=== PATIENT | female | born 1965 | race Caucasian/White ===

== ENCOUNTER → 2016-04-29 | Outpatient (CLI) | payer BC ==
--- NOTE | 2016-04-29 09:12 | MM ---
Reason for exam: follow-up at short interval from prior study. Last mammogram was performed 10 months ago. History: Patient is postmenopausal. Took hormonal contraceptives for 6 months. Physical Findings: Nurse did not find any significant physical abnormalities on exam. MG Diagnostic Mammo w CAD KAI Bilateral CC and MLO view(s) were taken. Prior study comparison: July 11, 2015, bilateral MG screening mammo w CAD. July 06, 2014, bilateral MG screening mammo w CAD. The breast tissue is heterogeneously dense. This may lower the sensitivity of mammography. Finding: There are intermediate concern, suspicious grouped/clustered calcifications in the middle position of the right breast, 6-7cm from the nipple. Asymmetric breast tissue in the right breast at 6 o'clock, 5-6cm from the nipple. These results were verbally communicated with the patient and result sheet given to the patient on 04/29/16. ASSESSMENT: Incomplete: need additional imaging evaluation, BI-RAD 0 RECOMMENDATION: Ultrasound of the right breast.
--- NOTE | 2016-04-29 09:14 | USB ---
Reason for exam: follow-up at short interval from prior study. History: Patient is postmenopausal. Took hormonal contraceptives for 6 months. US Breast Limited BILAT Left breast ultrasound including all four quadrants, the retroareolar region and axilla demonstrates a 0.6 x 0.5 x 0.3cm oval, mixed, hypoechoic lesion at 11 o'clock. Right breast ultrasound demonstrates no cystic or solid lesion seen. These results were verbally communicated with the patient and result sheet given to the patient on 04/29/16. ASSESSMENT: Probably benign, BI-RAD 3 RECOMMENDATION: Follow-up diagnostic mammogram of the left breast in 6 months. Ultrasound of the right breast in 6 months.
== END | disposition home or self-care (01) ==
LOC: RADMAMWWP 06:57
PROVIDERS: ATTEND Internal Medicine
DX: R92.2 Inconclusive mammogram (principal); R92.8 Other abnormal and inconclusive findings on diagnostic imaging of breast
CPT/HCPCS: 76642; G0204

== ENCOUNTER → 2016-06-18 | Outpatient (CLI) | payer BC ==
[2016-06-18 10:47] LABS: CH 29.6; CHCM 32.7; HCT 48.3 % (34.0-46.0); HDW 2.52; HGB 15.5 gm/dL (11.4-16.0); MCH 29.1 pg (25.0-35.0); MCHC 32.1 g/dL (31.0-37.0); MCV 90.8 fL (80.0-100.0); Mean Platelet Volume 7.1; RBC 5.32 m/uL (3.80-5.40); RDW 12.5 % (11.5-15.5); WBC 6.2 k/uL (3.8-10.6)
[2016-06-18 11:44] LABS: ALT 49 U/L (9-52); AST 31 U/L (14-36); Alkaline Phosphatase 69 U/L (38-126); Anion Gap 12 mmol/L; Blood Urea Nitrogen 21 mg/dL (7-17); Calcium 10.4 mg/dL (8.4-10.2); Carbon Dioxide 28 mmol/L (22-30); Chloride 103 mmol/L (98-107); Cholesterol 257 mg/dL (<200); Glucose 96 mg/dL (74-99); HDL Cholesterol 68 mg/dL (40-60); Non-African American GFR(MDRD) >60 (>60 ml/min/1.73 sqM); Potassium 4.7 mmol/L (3.5-5.1); Sodium 143 mmol/L (137-145); Total Bilirubin 0.7 mg/dL (0.2-1.3); Total Protein 7.8 g/dL (6.3-8.2); Triglycerides 83 mg/dL (<150)
[2016-06-18 12:32] LABS: Vitamin B12 975 pg/mL (239-931)
== END | disposition home or self-care (01) ==
LOC: LABWHC1 09:50
PROVIDERS: ATTEND Psychiatry & Neurology Pain Medicine
DX: R41.3 Other amnesia (principal)
CPT/HCPCS: 36415; 80053; 80061; 82607; 84439; 84443; 84481; 85027

== ENCOUNTER → 2016-06-30 | Outpatient (CLI) | payer BC ==
--- NOTE | 2016-06-30 11:10 | US ---
EXAMINATION TYPE: US carotid duplex BILAT DATE OF EXAM: 06/30/2016 9:50 AM COMPARISON: NONE CLINICAL HISTORY: R42 dizziness R41.3 memory loss. EXAM MEASUREMENTS: RIGHT: Peak Systolic Velocity (PSV) cm/sec ----- Right CCA: 86.6 ----- Right ICA: 107.0 ----- Right ECA: 123.8 ICA/CCA ratio: 1.2 RIGHT: End Diastole cm/sec ----- Right CCA: 22.7 ----- Right ICA: 25.4 ----- Right ECA: 20.4 LEFT: Peak Systolic Velocity (PSV) cm/sec ----- Left CCA: 95.4 ----- Left ICA: 92.7 ----- Left ECA: 104.4 ICA/CCA ratio: 1.0 LEFT: End Diastole cm/sec ----- Left CCA: 27.1 ----- Left ICA: 34.9 ----- Left ECA: 16.3 VERTEBRALS (direction of flow): Right Vertebral: Antegrade Left Vertebral: Antegrade TECHNOLOGIST IMPRESSION: No significant stenosis seen Grayscale, color Doppler, spectral Doppler imaging performed of the carotid arteries. IMPRESSION: No hemodynamically significant stenosis of the proximal internal carotid arteries bilate rally by Doppler criteria, and indirect measurement of carotid stenosis
--- NOTE | 2016-06-30 11:18 | MR ---
EXAMINATION TYPE: MR brain wo/w con DATE OF EXAM: 06/30/2016 10:54 AM COMPARISON: NONE HISTORY: Memory loss per order. TECHNIQUE: Multiplanar, multisequence images of the brain and brainstem is performed without and with IV contras t, utilizing 17 mL intravenous MultiHance . FINDINGS: Diffusion weighted images demonstrate no evidence of a recent infarct or other diffusion ab normality. There is no extra-axial fluid collection or significant white matter signal abnormality. The ventricular system and cisternal spaces are normal in size and appearance. The brain volume is age appropriate. Midline structures demonstrate normal morphology. In the anterior aspect of the inferior medulla near cervical spinal cord origin there is round area of heterogeneous increased T2 signal with low T1 sig nal measuring approximately 5 mm with prominent homogeneous enhancement noted on axial image 3, sagit kimber image 10, and postcontrast coronal image 23 and sagittal image 73. No restricted diffusion is not ed at this level. Post contrast images demonstrate no abnormal enhancement. The dural venous sinuses appear patent. The visualized sinuses are predominantly clear and the globes are intact. There is mi ld mucosal thickening involving ethmoid sinuses bilaterally. Increased fluid signal bilateral mastoid air cells is present. IMPRESSION: 1. There is abnormal 5 mm round homogeneous enhancing intradural intramedullary lesion anterior aspec t at cervical medullary junction. Differential includes neoplasm, vascular lesion such as cavernous m alformation and inflammatory change. Former is favored. Neurosurgical follow-up advised to assess for possible further imaging workup. 2. Possible bilateral mastoiditis, clinical correlation advised. A Yellow message has been communicated to Brianna Cardona MD via the [employer] system on 06/30/2016 11:15 AM, Message ID [id number].
== END | disposition home or self-care (01) ==
LOC: RADUSMAIN 09:17
PROVIDERS: ATTEND Psychiatry & Neurology Neurology
DX: G93.9 Disorder of brain, unspecified (principal); R42 Dizziness and giddiness
CPT/HCPCS: 93880; 70553; A9577

== ENCOUNTER → 2016-08-06 | Outpatient (CLI) | payer BC ==
--- NOTE | 2016-08-06 21:29 | MR ---
EXAMINATION TYPE: MR cspine/lspine wo/w con DATE OF EXAM: 08/06/2016 7:11 PM COMPARISON: Cervical spine x-ray June 28, 2013. MRI brain June 30, 2016. HISTORY: Cervicalgia and low back pain per order. Headaches with neck pain for over 2 years per patie nt. Low back pain for 2 months per patient. TECHNIQUE: Multiplanar, multisequence images of the cervical and lumbar spine are performed without and with IV contrast, utilizing 17 mL intravenous MultiHance FINDINGS: C-SPINE: FINDINGS: Sagittal images of the cervical spine redemonstrate heterogeneous T2 hyperintense 6 mm roun d homogeneous enhancing intradural intramedullary lesion anterior aspect at the cervical medullary ju nction felt stable. The cervical and upper thoracic spinal cord is otherwise normal in course, calib er, and signal. Vertebral alignment remains straightened. The vertebral body heights are normal. Th ere is moderate disc space narrowing with mild to moderate spurring C5-C6 level present. There is sma ll posterior disc herniation at this level on sagittal images. The bone marrow signal intensity is ov erall slightly heterogeneous. No suspicious postcontrast enhancement is noted. Axial images at the C2-C3 level shows left paracentral disc protrusion minimally effacing anterolater al thecal sac on axial image 43, bilateral neural foramina are patent. Axial images at C3-C4 and C4-C5 levels are felt within normal limits. Axial images at C5-C6 level show broad-based posterior disc protrusion effacing anterior thecal sac a nd causing mild right greater than left bilateral neural foraminal narrowing with some posterior and marginal spurring present. Axial images at C6-C7 and C7-T1 levels are felt within normal limits. IMPRESSION: 1. Stable lesion anterior cervical medullary junction. Differential remains neoplasm, vascular lesion such as cavernous malformation, and inflammatory change. No additional lesions are evident. 2. Straightening of cervical spine with degenerative change C5-C6 level noted as detailed above. L-SPINE: Sagittal images of the lumbar spine show vertebral body heights and alignment to appear satisfactory. There is multilevel disc desiccation identified. There is mild to moderate disc space narrowing L1-L 2 and L2-L3 levels. Increased signal posteriorly consistent with annular tear is seen at L4-L5 and L5 -S1 levels. Small posterior disc herniations are seen at these levels on sagittal images. The conus m edullaris is normal in position and signal ending at superior L1 vertebral body level. There is mild to moderate multilevel anterior spurring. There is some heterogeneous endplate changes involving ante rior inferior L1 and the anterior superior and inferior L3 endplates. There is prominent endplate charla nge involving left inferior L5 endplate, all these levels show increased T1 and T2 signal consistent with Modic type II degenerative change. No suspicious postcontrast enhancement is seen. Axial images show the T12-L1 level to appear within normal limits. Axial images at the L1-L2 level show mild to moderate broad disc bulge mildly effacing anterior theca l sac with mild facet degenerative changes bilaterally. Bilateral neural foramina are patent. Axial images at the L2-L3 level show moderate broad disc bulge effacing anterior thecal sac with mild /moderate facet degenerative changes and ligamentum flavum hypertrophy mildly effacing the posterior lateral thecal sac. There is mild left greater than right bilateral anterior inferior neural foramina l narrowing at this level identified. Axial images at L3-L4 level show mild to moderate broad disc bulge effacing anterior thecal sac with mild to moderate facet degenerative changes bilaterally. There is mild bilateral anterior inferior ne ural foraminal narrowing at this level identified. Axial images at L4-L5 level show moderate to advanced facet degenerative changes bilaterally. There i s broad-based posterior disc protrusion effacing the anterior thecal sac. There is moderate bilateral anterior inferior neural foraminal narrowing at this level identified. Axial images at L5-S1 level show moderate facet degenerative changes bilaterally. There is small cent ral disc protrusion minimally effacing anterior thecal sac on axial image 3. Bilateral neural foramin a remain patent. IMPRESSION: Multilevel degenerative changes in lumbar spine as detailed above with findings most pron ounced at L4-L5 level noted.
== END | disposition home or self-care (01) ==
LOC: RADMRIMAIN 18:00
PROVIDERS: ATTEND Nurse Practitioner Acute Care
DX: M47.812 Spondylosis without myelopathy or radiculopathy, cervical region (principal); M47.816 Spondylosis without myelopathy or radiculopathy, lumbar region
CPT/HCPCS: 72156; 72158; A9577

== ENCOUNTER → 2016-08-07 | Outpatient (CLI) | payer BC ==
--- NOTE | 2016-08-07 23:23 | MR ---
EXAMINATION TYPE: MR thoracic spine wo/w con DATE OF EXAM: 08/07/2016 6:53 PM COMPARISON: MRI brain June 30, 2016. MRI cervical spine and lumbar spine from yesterday. HISTORY: Pain in Mid Back per order. Abdominal brain MRI. TECHNIQUE: Multiplanar, multisequence imaging of thoracic spine is performed without and with IV cont rast, patient is injected with 20 cc of gadolinium for the study. FINDINGS: Spinal cord shows normal course, caliber, and signal as it courses the thoracic spine. Louise tebral body heights and alignment are satisfactory. There is small posterior disc herniation at T7-T8 and to lesser degree at T8-T9 level on sagittal image 7 mildly effacing anterior thecal sac. Some he terogeneity of bone marrow signal intensity is seen with small hemangioma in the inferior T1 endplate noted. No significant spurring is present. No abnormal postcontrast enhancement is seen. Review of the axial images confirms bilateral paracentral disc protrusions effacing anterolateral the montserrat sac, bilateral neural foramina are patent on axial image 17 at T7-T8 level. Axial images at T8-T9 level show slightly more prominent bilateral paracentral disc protrusions effac ing the anterior lateral thecal sac on axial image 15. There is facet arthropathy and ligamentum flav um hypertrophy effacing posterior lateral thecal sac at these levels. Bilateral neural foramina remai n patent. Axial images at T9-T10 level show some facet arthropathy and ligament flavum hypertrophy effacing pos terior lateral thecal sac and axial image 12. Bilateral neural foramina are patent. Remainder thoracic levels are felt within normal limits. IMPRESSION: Some multilevel degenerative changes in the mid to lower thoracic spine as detailed above . No additional enhancing spinal cord lesions are evident.
== END | disposition home or self-care (01) ==
LOC: RADMRIMAIN 18:00
PROVIDERS: ATTEND Nurse Practitioner Acute Care
DX: M47.814 Spondylosis without myelopathy or radiculopathy, thoracic region (principal)
CPT/HCPCS: 72157; A9577

== ENCOUNTER → 2016-09-10 | Outpatient (CLI) | payer BC ==
--- NOTE | 2016-09-10 21:47 | MR ---
EXAMINATION TYPE: MR brain wo/w con DATE OF EXAM: 09/10/2016 8:09 PM COMPARISON: 06/30/2016 HISTORY: Follow Up from previous Positive MRI CONTRAST: Performed utilizing 20 mL intravenous MultiHance gadolinium contrast. TECHNIQUE: Multiplanar, multiecho imaging on a 3.0 Helen magnet is performed through the brain. Stud y is performed within 24 hours of arrival to the hospital. The craniovertebral junction is normal. The pituitary is normal. Diffusion-weighted imaging is performed. No abnormal hyperintensity is present to suggest an acute i ntracranial infarct or acute ischemic change. There is an abnormal area of enhancement within the anterior brainstem near the level of the foramen magnum this measures 0.9 cm AP by 0.7 cm transverse by 0.9 cm in craniocaudal dimension which appears identical to the previous measurements. Cord bulging or mass effect is not identified. No additional abnormal areas of enhancement are evident. Ventricles and sulci are appropriate for the patient age. IMPRESSIONS: 1. Stable focal enhancement within the anterior proximal brainstem
== END | disposition home or self-care (01) ==
LOC: RADMRIMAIN 19:32
PROVIDERS: ATTEND Nurse Practitioner Acute Care
DX: G93.9 Disorder of brain, unspecified (principal)
CPT/HCPCS: 70553; A9577

== ENCOUNTER 2016-09-12 15:06 | Emergency (ER) | payer BC ==
[2016-09-12] MEDS ORDERED: SODIUM CHLORIDE 0.9% 1,000 ML IV STA (15:52)
[2016-09-12] MEDS ORDERED: KETOROLAC 30 MG/ML 1 ML VIAL IVP STA (15:52)
--- NOTE | 2016-09-12 15:56 | ED ---
Chest Pain HPI - General Chief Complaint: Chest Pain Stated Complaint: Chest Pain Time Seen by Provider: 09/12/16 15:30 Source: patient, RN notes reviewed Mode of arrival: wheelchair Limitations: no limitations - History of Present Illness Initial Comments: This is a 51-year-old female with a benign past history except for some type of mass on her med do that is being followed who states she had the onset about 1 PM today of sharp left-sided chest pain that radiated across her chest into her right shoulder. She states initially was 10/10 severity currently 8/10 he gets worse with deep breathing she denies any fevers chills nausea vomiting sweats cough or phlegm production. She is a nonsmoker. She states she was cleaning her garage but does not recall doing anything that may have strained her chest. She denies any other complaints at this time no other significant history is family history mother had lung cancer. MD Complaint: chest pain - Related Data Home Medications Medication Instructions Recorded Confirmed Dexamethasone 1 mg PO TID 09/12/16 09/12/16 Previous Rx's Medication Instructions Recorded Ibuprofen 800 mg PO Q6HR PRN #20 tablet 09/12/16 Allergies Allergy/AdvReac Type Severity Reaction Status Date / Time No Known Allergies Allergy Verified 09/12/16 17:12 Review of Systems ROS Statement: Those systems with pertinent positive or pertinent negative responses have been documented in the HPI. ROS Other: All systems not noted in ROS Statement are negative. 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 History of Any Multi-Drug Resistant Organisms: None Reported Past Surgical History: Appendectomy, Section, Cholecystectomy, Hysterectomy Past Psychological History: No Psychological Hx Reported Smoking Status: Never smoker Past Alcohol Use History: None Reported Past Drug Use History: None Reported General Exam - General Exam Comments Initial Comments: This is a well-developed well-nourished awake alert oriented 3 female Limitations: no limitations General appearance: alert, in no apparent distress Head exam: Present: atraumatic, normocephalic, normal inspection Eye exam: Present: normal appearance, PERRL, EOMI. Absent: scleral icterus, conjunctival injection, periorbital swelling ENT exam: Present: normal exam, mucous membranes moist Neck exam: Present: normal inspection. Absent: tenderness, meningismus, lymphadenopathy Respiratory exam: Present: normal lung sounds bilaterally, chest wall tenderness (Tenderness palpation along the costal sternal angle bilaterally. No step-off or crepitation). Absent: respiratory distress, wheezes, rales, rhonchi, stridor Cardiovascular Exam: Present: regular rate, normal rhythm, normal heart sounds. Absent: systolic murmur, diastolic murmur, rubs, gallop, clicks GI/Abdominal exam: Present: soft, normal bowel sounds. Absent: distended, tenderness, guarding, rebound, rigid Extremities exam: Present: normal inspection, full ROM, normal capillary refill. Absent: tenderness, pedal edema, joint swelling, calf tenderness Back exam: Present: normal inspection Neurological exam: Present: alert, oriented X3, CN II-XII intact Psychiatric exam: Present: normal affect, normal mood Skin exam: Present: warm, dry, intact, normal color. Absent: rash Course Vital Signs 09/12/16 09/12/16 15:26 16:56 Temperature 99.8 F H Pulse Rate 64 58 L Respiratory 17 18 Rate Blood Pressure 141/74 119/60 O2 Sat by Pulse 99 98 Oximetry Chest Pain MDM - MDM Review the x-ray shows no acute findings. Did discuss findings with the patient and her . Patient is feeling improved the presentation is consistent with costochondritis patient does not drink alcohol she had her gallbladder removed several years ago. She does not recall being sick and has no abdominal pain. I did inform her of the mildly elevated lipase level. She' ll be placed on anti-inflammatories follow-up with her doctor and return when necessary Disposition Clinical Impression: Chest wall syndrome, Costalchondritis, Dehydration Disposition: HOME SELF-CARE Condition: Good Instructions: Costochondritis (ED), Dehydration (ED) Prescriptions: Ibuprofen 800 mg PO Q6HR PRN #20 tablet PRN Reason: Pain Referrals: Sue Abreu MD [Primary Care Provider] - 1-2 days
[2016-09-12 16:14] LABS: Basophils # (A) 0.1 k/uL (0-0.2); Basophils % (A) 1 %; CH 30.1; CHCM 33.1; Eosinophils # (A) 0.2 k/uL (0-0.7); Eosinophils % (A) 3 %; HCT 40.5 % (34.0-46.0); HDW 2.43; HGB 13.3 gm/dL (11.4-16.0); Luc # (Auto) 0.11; Luc % (Auto) 2; Lymphocytes # (A) 2.4 k/uL (1.0-4.8); Lymphocytes % (A) 41 %; MCHC 32.8 g/dL (31.0-37.0); MCV 91.4 fL (80.0-100.0); Mean Platelet Volume 7.3; Monocytes # (A) 0.3 k/uL (0-1.0); Monocytes % (A) 5 %; Neutrophils # (A) 2.8 k/uL (1.3-7.7); Neutrophils % (A) 48 %; RBC 4.43 m/uL (3.80-5.40); RDW 13.1 % (11.5-15.5); WBC 5.8 k/uL (3.8-10.6); WBC (Perox) 6.23
[2016-09-12 16:24] LABS: ALT 34 U/L (9-52); AST 35 U/L (14-36); Alkaline Phosphatase 76 U/L (38-126); Amylase 82 U/L (30-110); Anion Gap 9 mmol/L; Blood Urea Nitrogen 24 mg/dL (7-17); Calcium 9.3 mg/dL (8.4-10.2); Carbon Dioxide 25 mmol/L (22-30); Chloride 108 mmol/L (98-107); Glucose 122 mg/dL (74-99); Magnesium 1.8 mg/dL (1.6-2.3); Non-African American GFR(MDRD) >60 (>60 ml/min/1.73 sqM); Potassium 4.3 mmol/L (3.5-5.1); Sodium 142 mmol/L (137-145); Total Bilirubin 0.3 mg/dL (0.2-1.3); Total Protein 6.4 g/dL (6.3-8.2)
[2016-09-12 16:32] LABS: Creatine Kinase 269 U/L (30-135)
[2016-09-12 16:37] LABS: Prothrombin Time 10.3 sec (9.0-12.0)
[2016-09-12 16:45] LABS: Creatine Kinase MB 1.7 ng/mL (0.0-2.4); Troponin I <0.012 ng/mL (0.000-0.034)
--- NOTE | 2016-09-12 16:54 | XR ---
EXAMINATION TYPE: XR chest 2V DATE OF EXAM: 09/12/2016 COMPARISON: NONE HISTORY: Chest pain TECHNIQUE: Frontal and lateral views of the chest are obtained. FINDINGS: There is no focal air space opacity, pleural effusion, or pneumothorax seen. The cardiac silhouette size is within normal limits. The osseous structures are intact. IMPRESSION: No acute cardiopulmonary process.
[2016-09-12 16:57] VITALS: RESP 18
[2016-09-12 18:41] VITALS: BP 124/63; PULSE 56; TEMP 98.9
== END 2016-09-12 18:41 | disposition home or self-care (01) ==
LOC: EC 15:06
DX: M94.0 Chondrocostal junction syndrome [Tietze] (principal); E86.0 Dehydration; R74.8 Abnormal levels of other serum enzymes; Z79.899 Other long term (current) drug therapy
CPT/HCPCS: 36415; 93005; 85379; 83880; 80053; 82150; 82550; 82553; 83690; 83735; 84484; 85025; 85610; 85730; 71020; 99285; 96374; 96361 ×2; J1885

== ENCOUNTER → 2016-09-25 | Outpatient (CLI) | payer BC ==
--- NOTE | 2016-09-25 19:57 | CT ---
EXAMINATION TYPE: CT angio head neck DATE OF EXAM: 09/25/2016 7:43 PM COMPARISON: NONE HISTORY: brainstem tumor CT DLP: 316.6 mGycm Automated exposure control for dose reduction was used. TECHNIQUE: Performed with IV Contrast, patient injected with 65 mL of Omnipaque 350. . FINDINGS: There is normal appearance of the aortic arch. There is normal branching pattern of the great vessels on the aortic arch. There is arterial flow in the common internal and external carotid arteries in t he neck. There is no evidence for stenosis. There is no evidence of dissection. There is bilateral arterial flow in the vertebral arteries. There is patency of the vertebrobasilar artery system. I see no pathologic vascularity or enhancement involving the brainstem and upper cervical spinal cord. There is arterial flow in the anterior middle and posterior cerebral arteries. There is no mass effec t. There is no evidence of stenosis. There is no sign of neovascularity. There is normal contrast opacification of the intracranial venous sinuses. IMPRESSION: NORMAL CT ANGIOGRAM OF THE NECK. NORMAL CT ANGIOGRAM OF THE BRAIN. THERE IS NO EVIDENCE OF A VASCULAR MALFORMATION OF THE BRAIN STEM A ND UPPER CERVICAL SPINAL CORD.
== END | disposition home or self-care (01) ==
LOC: RADCTMAIN 16:49
PROVIDERS: ATTEND Neurological Surgery
DX: Q28.3 Other malformations of cerebral vessels (principal)
CPT/HCPCS: 70496; 70498; Q9967

== ENCOUNTER → 2016-09-29 | Outpatient (CLI) | payer BC ==
--- NOTE | 2016-09-29 12:51 | CT ---
EXAMINATION TYPE: CT abdomen pelvis w con DATE OF EXAM: 09/29/2016 COMPARISON: NONE HISTORY: Brain stem tumor with LUQ and RLQ pain CT DLP: 1118.7 mGycm Automated exposure control for dose reduction was used. TECHNIQUE: Helical acquisition of images was performed from the lung bases through the pelvis. CONTRAST: Performed with Oral Contrast and with IV Contrast, patient injected with 100 mL of Omnipaque 300. FINDINGS: LUNG BASES: No significant abnormality is appreciated. LIVER/GB: No significant abnormality is appreciated. PANCREAS: No significant abnormality is seen. SPLEEN: No significant abnormality is seen. ADRENALS: No significant abnormality is seen. KIDNEYS: No significant abnormality is seen. FREE AIR: No free air is visualized. RETROPERITONEAL ADENOPATHY: None visualized REPRODUCTIVE ORGANS: No significant abnormality is seen URINARY BLADDER: No significant abnormality is seen. PELVIC ADENOPATHY: None visualized. OSSEOUS STRUCTURES: No significant abnormality is seen. BOWEL: No significant abnormality is seen. IMPRESSION: NEGATIVE EXAMINATION, CT ABDOMEN AND PELVIS WITH CONTRAST.
== END | disposition home or self-care (01) ==
LOC: RADCTMAIN 08:36
PROVIDERS: ATTEND Internal Medicine
DX: R10.9 Unspecified abdominal pain (principal); D33.2 Benign neoplasm of brain, unspecified
CPT/HCPCS: 74177; Q9967

== ENCOUNTER → 2016-10-02 | Outpatient (CLI) | payer BC ==
--- NOTE | 2016-10-02 14:07 | CT ---
EXAMINATION TYPE: CT chest w con DATE OF EXAM: 10/02/2016 COMPARISON: Previous ultrasound breast and mammogram 04/29/2016 HISTORY: Lt breast pain, known brain stem tumor CT DLP: 424.7 mGycm Automated exposure control for dose reduction was used. CONTRAST: CT scan of the chest is performed with IV Contrast, patient injected with 100 mL of Omnipaque 300. FINDINGS: LUNGS: The lungs are grossly clear, there is no concerning parenchymal mass or nodule identified. T here is no pleural effusion or pneumothorax seen. The tracheobronchial tree is patent. Pleural-based thickening posteriorly on the left likely postinflammatory with tiny 1 mm subpleural nodularity like ly postinflammatory. MEDIASTINUM: There are no greater than 1 cm hilar or mediastinal lymph nodes. No pericardial effusi on is seen. Mild cardiomegaly. OTHER: No previous cholecystectomy changes noted. Significant abnormality is seen. Shotty adenopathy in the axilla. There is a 1 cm right breast nodule. Shotty adenopathy in the cardiophrenic angle on the right. IMPRESSION: 1. There is a 1 cm right breast nodule correlate with mammogram. Not identified by previous mammogram . 2. Subpleural nodularity left lower lobe measuring less than 5 mm likely postinflammatory.
== END | disposition home or self-care (01) ==
LOC: RADCTMAIN 13:31
PROVIDERS: ATTEND Internal Medicine
DX: N63 Unspecified lump in breast (principal); R91.8 Other nonspecific abnormal finding of lung field; D49.6 Neoplasm of unspecified behavior of brain
CPT/HCPCS: 71260; Q9967

== ENCOUNTER → 2016-10-14 | Outpatient (CLI) | payer BC ==
--- NOTE | 2016-10-14 09:54 | MM ---
Reason for exam: clinical finding. Last mammogram was performed 6 months ago. History: Patient is postmenopausal. Took hormonal contraceptives for 6 months. Physical Findings: Nurse did not find any significant physical abnormalities on exam. MG Diagnostic Mammo w CAD KAI Bilateral CC and MLO view(s) were taken. Prior study comparison: April 29, 2016, bilateral MG diagnostic mammo w CAD KAI. July 11, 2015, bilateral MG screening mammo w CAD. There are scattered fibroglandular densities. There is chronic nodularity bilaterally. No significant new findings when compared with previous films. These results were verbally communicated with the patient and result sheet given to the patient on 10/14/16. ASSESSMENT: Benign, BI-RAD 2 RECOMMENDATION: Routine screening mammogram of both breasts in 1 year.
--- NOTE | 2016-10-14 09:56 | USB ---
Reason for exam: clinical finding. History: Patient is postmenopausal. Took hormonal contraceptives for 6 months. US Breast BILAT Right breast ultrasound includes all four quadrants, the retroareolar region and axilla. Finding demonstrates a 0.3 x 0.3 x 0.2cm lesion too small to characterize at 1 o'clock, a 0.6 x 0.4 x 0.4cm cystic lesion at 4 o'clock and a 0.8 x 1.0 x 0.4cm oval, solid lesion at 6 o'clock. Left breast ultrasound includes all four quadrants, the retroareolar region and axilla. Finding demonstrates a 0.6 x 0.6 x 0.3cm oval, solid lesion at 11 o'clock. These results were verbally communicated with the patient and result sheet given to the patient on 10/14/16. ASSESSMENT: Probably benign, BI-RAD 3 RECOMMENDATION: Ultrasound of both breasts in 6 months.
== END | disposition home or self-care (01) ==
LOC: RADMAMWWP 08:17
PROVIDERS: ATTEND Internal Medicine
DX: N63 Unspecified lump in breast (principal)
CPT/HCPCS: 76641; G0204

== ENCOUNTER 2016-10-28 05:37 | Emergency (ER) | payer BC ==
[2016-10-28] MEDS ORDERED: SODIUM CHLORIDE 0.9% 1,000 ML IV STA ×2 (05:56→07:52)
[2016-10-28] MEDS ORDERED: HYDROmorphone 1 MG/ML 1 ML SYRINGE IVP STA (05:56)
[2016-10-28] MEDS ORDERED: ONDANSETRON 4 MG/2 ML VIAL IVP STA (05:56)
[2016-10-28] MEDS ORDERED: RX INFO: IV CONTRAST WAS GIVEN 1 EACH MISC MISCELLANE PRN (06:00)
--- NOTE | 2016-10-28 06:08 | ED ---
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 Cardona for and she had multiple imaging done recently did review some of for CT angiogram of the brain which was normal that there was a MRI of the brain which does confirm a brainstem tumor right around dougherty magnum. He denies any blurred vision any slurred speech or any neck stiffness or any 1 week within the other one leg weaker than the other (Gt Haley) - Related Data Home Medications Medication Instructions Recorded Confirmed Dexamethasone 1 mg PO TID 09/12/16 10/28/16 Multivitamins, Thera [Multivitamin 1 tab PO DAILY 10/28/16 10/28/16 (formulary)] Allergies Allergy/AdvReac Type Severity Reaction Status Date / Time No Known Allergies Allergy Verified 10/28/16 07:56 Review of Systems ROS Other: All systems not noted in ROS Statement are negative. <Gt Haley - Last Filed: 10/28/16 06:49> ROS Other: All systems not noted in ROS Statement are negative. <Merritt Vegas - Last Filed: 10/28/16 08:55> ROS Statement: Those systems with pertinent positive or pertinent negative responses have been documented in the HPI. 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- benign History of Any Multi-Drug Resistant Organisms: None Reported Past Surgical History: Appendectomy, Section, Cholecystectomy, Hysterectomy Additional Past Surgical History / Comment(s): c-sect x 3 Past Psychological History: No Psychological Hx Reported Smoking Status: Never smoker Past Alcohol Use History: None Reported Past Drug Use History: None Reported <Gt Haley - Last Filed: 10/28/16 06:49> General Exam Limitations: no limitations <Gt Haley - Last Filed: 10/28/16 06:49> <Merritt Vegas - Last Filed: 10/28/16 08:55> - General Exam Comments Initial Comments: General: The patient is awake and alert, in no distress, and does not appear acutely ill. GCS is 15 Skin: Skin is warm and dry and no rashes or lesions are noted. Eye: Pupils are equal, round and reactive to light, extra-ocular movements are intact; there is normal conjunctiva bilaterally. Ears, nose, mouth and throat: There are moist mucous membranes and no oral lesions. Neck: The neck is supple, there is no tenderness or JVD. No neck stiffness noticed no signs of meningitis noticed Cardiovascular: There is a regular rate and rhythm. No murmur, rub or gallop is appreciated. Respiratory: To auscultation bilateral, no wheezing no rhonchi no distress respiratory carney noticed Gastrointestinal: Soft, non-distended, non-tender abdomen without masses or organomegaly noted. There is no rebound or guarding present. Bowel sounds are unremarkable. Back: There is no tenderness to palpation in the midline. There is no obvious deformity. Musculoskeletal: Normal ROM, no tenderness, There is no pedal edema. There is no calf tenderness or swelling. No cords were appreciated. Neurological: CN II-XII intact, Cranial nerves III through XII are intact. There are no obvious motor or sensory deficits. Coordination appears grossly intact. Speech is normal. Psychiatric: Cooperative, appropriate mood & affect, normal judgment. (Gt Haley) Course <Gt Haley - Last Filed: 10/28/16 06:49> <Merritt Vegas - Last Filed: 10/28/16 08:55> Vital Signs 10/28/16 10/28/16 10/28/16 05:40 06:15 07:00 Temperature 97.8 F Pulse Rate 76 69 76 Respiratory 18 18 18 Rate Blood Pressure 145/79 154/74 117/57 O2 Sat by Pulse 100 98 97 Oximetry 10/28/16 08:00 Temperature Pulse Rate 61 Respiratory 18 Rate Blood Pressure 124/58 O2 Sat by Pulse 100 Oximetry - Reevaluation(s) Reevaluation #1: 10/28/16 06:[address] brain with IV contrast, will go ahead and give her Dilaudid 1 mg IV along with Zofran she is taking steroids 3 times a day 10/28/16 07:00 She'll be heading to the CT suite for the CAT scan patient be endorsed to morning shift Dr. Dr. Vegas to follow-up on the CAT scan (Gt Haley) Medical Decision Making - Lab Data Result diagrams: 10/28/16 06:10 10/28/16 06:10 <Gt Haley - Last Filed: 10/28/16 06:49> - Lab Data Result diagrams: 10/28/16 06:10 10/28/16 06:10 - Radiology Data Radiology results: report reviewed (I did review the imaging and reports there is no acute changes since an MRI done 09/10/16), image reviewed <Merritt Vegas - Last Filed: 10/28/16 08:55> - Medical Decision Making The patient has responded to the pain medication and fluids she will be discharged she feels much improved at this time and does desire to go home. ( Merritt Vegas) - Lab Data Lab Results 10/28/16 10/28/16 Range/Units 06:10 06:10 WBC 6.6 (3.8-10.6) k/uL RBC 4.48 (3.80-5.40) m/uL Hgb 13.9 (11.4-16.0) gm/dL Hct 39.7 (34.0-46.0) % MCV 88.8 (80.0-100.0) fL MCH 31.0 (25.0-35.0) pg MCHC 34.9 (31.0-37.0) g/dL RDW 13.1 (11.5-15.5) % Plt Count 216 (150-450) k/uL ESR 13 (0-20) mm/hr Sodium 142 (137-145) mmol/L Potassium 4.1 (3.5-5.1) mmol/L Chloride 106 (98-107) mmol/L Carbon Dioxide 27 (22-30) mmol/L Anion Gap 9 mmol/L BUN 21 H (7-17) mg/dL Creatinine 0.68 (0.52-1.04) mg/dL Est GFR (MDRD) Af Amer >60 (>60 ml/min/1.73 sqM) Est GFR (MDRD) Non-Af >60 (>60 ml/min/1.73 sqM) Glucose 103 H (74-99) mg/dL Calcium 9.7 (8.4-10.2) mg/dL Total Bilirubin 0.5 (0.2-1.3) mg/dL AST 86 H (14-36) U/L ALT 260 H (9-52) U/L Alkaline Phosphatase 89 (38-126) U/L Total Protein 6.7 (6.3-8.2) g/dL Albumin 3.8 (3.5-5.0) g/dL Disposition <Gt Haley - Last Filed: 10/28/16 06:49> <Merritt Vegas - Last Filed: 10/28/16 08:55> Clinical Impression: Headache, Brainstem tumor, Dehydration Disposition: HOME SELF-CARE Condition: Good Instructions: Acute Headache (ED), Dehydration (ED) Referrals: Sue Abreu MD [Primary Care Provider] - 1-2 days
[2016-10-28 06:27] LABS: HCT 39.7 % (34.0-46.0); HDW 2.39; HGB 13.9 gm/dL (11.4-16.0); MCHC 34.9 g/dL (31.0-37.0); MCV 88.8 fL (80.0-100.0); Mean Platelet Volume 7.3; RBC 4.48 m/uL (3.80-5.40); RDW 13.1 % (11.5-15.5); WBC 6.6 k/uL (3.8-10.6)
[2016-10-28 06:39] LABS: ALT 260 U/L (9-52); AST 86 U/L (14-36); Alkaline Phosphatase 89 U/L (38-126); Anion Gap 9 mmol/L; Blood Urea Nitrogen 21 mg/dL (7-17); Calcium 9.7 mg/dL (8.4-10.2); Carbon Dioxide 27 mmol/L (22-30); Chloride 106 mmol/L (98-107); Glucose 103 mg/dL (74-99); Non-African American GFR(MDRD) >60 (>60 ml/min/1.73 sqM); Potassium 4.1 mmol/L (3.5-5.1); Sodium 142 mmol/L (137-145); Total Bilirubin 0.5 mg/dL (0.2-1.3); Total Protein 6.7 g/dL (6.3-8.2)
[2016-10-28 07:08] LABS: Erythrocyte Sedimentation Rate 13 mm/hr (0-20)
--- NOTE | 2016-10-28 07:51 | CT ---
EXAMINATION TYPE: CT brain w con DATE OF EXAM: 10/28/2016 COMPARISON: MRI 09/10/2016 HISTORY: 51-year-old female with Migraine with a history of benign brainstem tumor CT DLP: 1055 mGycm Automated exposure control for dose reduction was used. TECHNIQUE: CT scan of the head is performed with IV Contrast, patient injected with 100 ml mL of Omn ipaque 300. Coronal/sagittal reconstructions performed. FINDINGS: The 8 x 8 x 9 mm nodular focus of enhancement within the ventral median, left paramedian cervical med ullary junction is unchanged from 09/10/2016 MRI. No associated mass effect or midline shift. No other abnormal enhancing masses. Dural venous sinuses are patent. The ventricles and sulci are within normal limits in size. The globes are intact and the visualized sinuses are clear. IMPRESSION: As compared to 09/10/2016 MRI, the enhancing 9 mm lesion within the median, left paramedian ventral ce rvicomedullary junction is stable. No other enhancing lesions or mass effect identified.
[2016-10-28] MEDS ORDERED: KETOROLAC 30 MG/ML 1 ML VIAL IVP STA (07:52)
[2016-10-28 09:05] VITALS: BP 139/73; PULSE 60; RESP 20; TEMP 98.4
[2016-10-29 21:32] LABS: Hepatitis B Surface Ag Index 0.07
[2016-10-29 21:38] LABS: Hepatitis B Core IgM Index 0.03
[2016-10-29 21:49] LABS: Hepatitis C Virus IgG Ab Negative (Negative); Hepatitis C Virus IgG Index 0.01
== END 2016-10-28 09:09 | disposition home or self-care (01) ==
LOC: EC 05:37
DX: D33.1 Benign neoplasm of brain, infratentorial (principal); E86.0 Dehydration; Z79.899 Other long term (current) drug therapy; Z90.49 Acquired absence of other specified parts of digestive tract; Z90.710 Acquired absence of both cervix and uterus
CPT/HCPCS: 36415; 80053; 85652; 85027; 70460; 99284; 96374; 96375 ×2; 96361 ×3; J2405; J1885; J1170; Q9967; 80074

== ENCOUNTER → 2016-11-18 | Outpatient (CLI) | payer BC ==
[2016-11-18 09:58] LABS: Basophils # (A) 0.1 k/uL (0-0.2); Basophils % (A) 1 %; CH 30.8; CHCM 33.7; Eosinophils # (A) 0.1 k/uL (0-0.7); Eosinophils % (A) 2 %; HCT 45.3 % (34.0-46.0); Luc # (Auto) 0.17; Luc % (Auto) 3; Lymphocytes # (A) 2.6 k/uL (1.0-4.8); Lymphocytes % (A) 38 %; MCH 30.5 pg (25.0-35.0); MCHC 33.3 g/dL (31.0-37.0); MCV 91.7 fL (80.0-100.0); Mean Platelet Volume 8.2; Monocytes # (A) 0.5 k/uL (0-1.0); Monocytes % (A) 7 %; Neutrophils # (A) 3.3 k/uL (1.3-7.7); Neutrophils % (A) 50 %; RBC 4.93 m/uL (3.80-5.40); RDW 13.6 % (11.5-15.5); WBC 6.7 k/uL (3.8-10.6); WBC (Perox) 6.43
[2016-11-18 11:44] LABS: ALT 55 U/L (9-52); AST 29 U/L (14-36); Alkaline Phosphatase 67 U/L (38-126); Anion Gap 11 mmol/L; Blood Urea Nitrogen 17 mg/dL (7-17); Calcium 10.2 mg/dL (8.4-10.2); Carbon Dioxide 28 mmol/L (22-30); Chloride 103 mmol/L (98-107); Glucose 93 mg/dL (74-99); Non-African American GFR(MDRD) >60 (>60 ml/min/1.73 sqM); Potassium 4.3 mmol/L (3.5-5.1); Sodium 142 mmol/L (137-145); Total Bilirubin 0.5 mg/dL (0.2-1.3); Total Protein 7.1 g/dL (6.3-8.2)
[2016-11-18 12:32] LABS: Vitamin B12 800 pg/mL (239-931)
== END | disposition home or self-care (01) ==
LOC: LABWHC1 09:22
PROVIDERS: ATTEND Nurse Practitioner Acute Care
DX: R53.83 Other fatigue (principal); E55.9 Vitamin D deficiency, unspecified; R20.2 Paresthesia of skin
CPT/HCPCS: 36415; 80053; 82306; 82607; 84439; 84443; 84481; 85025

== ENCOUNTER → 2016-11-24 | Outpatient (CLI) | payer BC ==
--- NOTE | 2016-11-24 21:04 | MR ---
EXAMINATION TYPE: MR brain wo/w con DATE OF EXAM: 11/24/2016 COMPARISON: MR brain dated 09/10/2016, and 06/30/2016. HISTORY: Disorder of brain, brain mass TECHNIQUE: Multiplanar, multisequence images of the brain and brainstem is performed without and with IV contras t, utilizing 18 mL intravenous MultiHance . FINDINGS: Diffusion weighted images demonstrate no evidence of a recent infarct or other diffusion ab normality. There is no extra-axial fluid collection. Stable right frontal and periventricular nonenh ancing white matter changes are seen. The ventricular system and cisternal spaces are normal in size and appearance. The brain volume is age appropriate. 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 A focal T2/FLAIR hyperintense intradural, intramedullary enhancing mass is seen at the craniocervical junction within the distal fibula at the foramen magnum measuring 0.6 x 0.6 x 0.8 cm. This mass is o f avid and heterogenous enhancement. This is similar in size to the prior exam given differences in m easurement technique as it previously measured 0.9 x 0.7 x 0.9 cm in anterior posterior by transverse by craniocaudal dimension. No new enhancing foci. The dural venous sinuses appear patent. The visualized sinuses are clear and the globes are intact. IMPRESSION: 1. Unchanged intradural, intramedullary enhancing mass. This is favored to represent a vascular lesio n as it is unchanged from the prior exam such as cavernous malformation, however low-grade slow-growi ng neoplasm remains a possibility and surveillances recommended. No new enhancing foci. 2. 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
== END | disposition home or self-care (01) ==
LOC: RADMRIMAIN 17:58
PROVIDERS: ATTEND Nurse Practitioner Acute Care
DX: G93.9 Disorder of brain, unspecified (principal); R90.89 Other abnormal findings on diagnostic imaging of central nervous system
CPT/HCPCS: 70553; A9577

== ENCOUNTER → 2016-11-26 | Outpatient (CLI) | payer BC ==
--- NOTE | 2016-11-26 11:48 | FL ---
EXAMINATION TYPE: FL barium swallow w video DATE OF EXAM: 11/26/2016 MODIFIED SWALLOW / DEGLUTITION STUDY CLINICAL HISTORY: Dysphagia. Benign intracranial lesion. TECHNIQUE: Deglutition study is performed utilizing thin liquid barium, honey and nectar thick liqui d barium, barium thick applesauce, and barium coated cracker. A total of 1.03 minutes of fluoroscopic time was utilized during procedure. COMPARISON: None. FINDINGS: The oral and pharyngeal phases show satisfactory initiation and propagation with all modali ties tested. Normal mastication is seen with solid modalities tested. There is no evidence of penet ration or aspiration with any modality tested. No significant pharyngeal residue was appreciated. Th ere is mild to moderate spurring and disc space narrowing C5-C6 level of cervical spine which is stra ightened. This causes minimal mass effect on the posterior wall of the proximal esophagus shortly aft er its origin. IMPRESSION: No penetration or aspiration is present. Please refer to speech therapist notes for furth er details if necessary.
== END | disposition home or self-care (01) ==
LOC: RADFLMAIN 10:40
PROVIDERS: ATTEND Psychiatry & Neurology Neurology
DX: R13.10 Dysphagia, unspecified (principal)
CPT/HCPCS: 74230

== ENCOUNTER → 2017-07-12 | Outpatient (CLI) | payer BC ==
--- NOTE | 2017-07-13 10:24 | MR ---
EXAMINATION TYPE: MR brain wo/w con DATE OF EXAM: 07/12/2017 COMPARISON: 02/17/2017 and 06/30/2016 HISTORY: 51-year-old female localized swelling, mass, follow up brain mass TECHNIQUE: Multiplanar, multisequence images of the brain and brainstem were acquired before and aft er administration of 7.5 mL IV Gadavist. Diffusion weighted imaging is performed. FINDINGS: No evidence for acute infarction, hemorrhage, mass effect, midline shift, herniation, effacement of b annia cisterns, or extra-axial fluid collection. Redemonstrated homogeneously enhancing round intramedullary lesion along the anterior half of the med isa, left paramedian cervical medullary junction. This measures 7 mm wide by 7 mm AP by 8 mm cranioca udal, unchanged from 06/30/2016. T2/FLAIR weighted sequences show possible punctate internal low signa l that could represent hemosiderin deposition. T2/FLAIR weighted sequences show no abnormal surrounding cord or brainstem signal. A solitary 4 mm s ubcortical focus in the posterior right frontal lobe is unchanged and nonspecific. The ventricles and sulci are age-appropriate. Major intracranial flow voids are intact. Midline structures otherwise demonstrate normal morphology. The craniocervical junction is otherwise normal. Post contrast images demonstrate no other evidence of pathologic enhancement. Dural venous sinuses a re patent. The visualized sinuses are clear and the globes are intact. IMPRESSION: Exam remains stable from 06/30/2016 with an enhancing 7 x 8 mm intramedullary lesion at the craniocerv ical junction. Possible cryptic AVM such as a cavernoma. Given the year of stability, consider annual follow-up.
== END | disposition home or self-care (01) ==
LOC: RADMRIMAIN 15:38
PROVIDERS: ATTEND Psychiatry & Neurology Neurology
DX: G95.9 Disease of spinal cord, unspecified (principal)
CPT/HCPCS: 70553; A9581

== ENCOUNTER 2017-09-03 17:53 | Emergency (ER) | payer BC ==
[2017-09-03] MEDS ORDERED: RX INFO: IV CONTRAST WAS GIVEN 1 EACH MISC MISCELLANE PRN (18:31)
[2017-09-03] MEDS ORDERED: KETOROLAC 30 MG/ML 1 ML VIAL IVP STA (18:32)
--- NOTE | 2017-09-03 18:35 | ED ---
General Adult HPI - General Chief complaint: Neuro Symptoms/Deficit Stated complaint: facial numbness, tingling Time Seen by Provider: 09/03/17 18:25 Source: family Mode of arrival: ambulatory Limitations: no limitations - History of Present Illness Initial comments: This 52-year-old white female presents with a complaint of a headache and some right facial numbness. The onset of symptoms occurred yesterday. She describes the headache as a sharp pain to the superior and posterior aspect. She has not tried any medication for the pain as of yet. She denies any nausea or vomiting. There is no extremity paresthesias or weakness. She relates a history of being diagnosed with a 6 mm brainstem noncancerous mass last year. She had a repeat MRI scan 2 months ago which showed that it was 8 mm. She states that this is inoperable. She denies any chest pain, shortness breath, abdominal pain, fevers or chills. There is no other complaints or modifying factors. - Related Data Home Medications Medication Instructions Recorded Confirmed Multivitamins, Thera [Multivitamin 1 tab PO DAILY 10/28/16 09/03/17 (formulary)] Topiramate [Topamax] 50 mg PO BID 03/29/17 09/03/17 Allergies Allergy/AdvReac Type Severity Reaction Status Date / Time No Known Allergies Allergy Verified 09/03/17 18:51 Review of Systems ROS Statement: Those systems with pertinent positive or pertinent negative responses have been documented in the HPI. ROS Other: All systems not noted in ROS Statement are negative. 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- benign History of Any Multi-Drug Resistant Organisms: None Reported Past Surgical History: Appendectomy, Section, Cholecystectomy, Hysterectomy Additional Past Surgical History / Comment(s): c-sect x 3 Past Anesthesia/Blood Transfusion Reactions: No Reported Reaction Past Psychological History: No Psychological Hx Reported Smoking Status: Never smoker Past Alcohol Use History: None Reported Past Drug Use History: None Reported - Past Family History Father History Unknown: Yes Mother Family Medical History: Cancer Additional Family Medical History / Comment(s): uterine and lung cancer Brother(s) Family Medical History: No Reported History Daughter(s) Family Medical History: No Reported History Son(s) Family Medical History: No Reported History General Exam - General Exam Comments Initial Comments: GENERAL: The patient is well nourished and well hydrated. VITAL SIGNS: Heart rate, blood pressure, respiratory rate reviewed as recorded in nurse's notes. EYES: Pupils are round and reactive. Extraocular movements are intact. No conjunctival / lid redness or swelling. ENT: No external evidence of injury, swelling, or ecchymosis. Airway is patent. Throat is clear. NECK: Nontender. No swelling or evidence of injury. No subcutaneous emphysema. Trachea is midline. No thyroid mass. HEART: Regular rate and rhythm. Good peripheral pulses. LUNGS/CHEST: Breath sounds clear and equal bilaterally. No rales, rhonchi, or wheezes. No ecchymosis, subcutaneous emphysema, or tenderness. ABDOMEN: Abdomen soft without tenderness. No palpable masses or organomegaly. No peritoneal signs. No abdominal wall swelling or ecchymosis. EXTREMITIES: No extremity tenderness. Normal muscle tone and function. No thoracolumbar tenderness. NEUROLOGIC: The patient has some subjective numbness to the right face. Cranial nerve exam reveals face is symmetrical, tongue is midline, speech is clear. SKIN: No abrasions or ecchymosis is noted. No induration or masses noted. PSYCHIATRIC: Alert and oriented. Appropriate behavior and judgment. Limitations: no limitations Course Vital Signs 09/03/17 09/03/17 09/03/17 17:58 18:24 19:02 Temperature 98.0 F Pulse Rate 68 63 59 L Respiratory 18 18 20 Rate Blood Pressure 130/69 141/83 128/77 O2 Sat by Pulse 100 100 98 Oximetry 09/03/17 20:02 Temperature Pulse Rate 55 L Respiratory 20 Rate Blood Pressure 112/56 O2 Sat by Pulse 99 Oximetry Medical Decision Making - Medical Decision Making The patient was seen and examined. All diagnostics were reviewed. The patient has a NIH stroke scale of 0 per the nursing staff. She does receive 30 of Toradol IV. The EKG shows a sinus bradycardia at a rate of 56. There is some nonspecific ST-T wave changes noted diffusely. There is a SD interval of 172, QRS duration of 84, and the QTc interval is 397. The laboratory does show mild height her knee to knee as well as a mild hyperchloremia. The computed tomography scan of the brain does show the 8 mm mass which appears to be stable. No other acute processes noted. She is appearing well on recheck but the exact cause of her symptoms is not definitively determined. Overall, it is felt as though she stable for discharge. She does not want any prescriptions for her headache which is overall very mild in nature. It is felt as though she may utilize Tylenol or Motrin if needed. It is felt as though she should' ve close follow-up with her neurologist as well. - Lab Data Result diagrams: 09/03/17 18:37 09/03/17 18:37 Lab Results 09/03/17 09/03/17 09/03/17 Range/Units 18:37 18:37 18:37 WBC 6.1 (3.8-10.6) k/uL RBC 4.77 (3.80-5.40) m/uL Hgb 14.5 (11.4-16.0) gm/dL Hct 43.3 (34.0-46.0) % MCV 90.9 (80.0-100.0) fL MCH 30.4 (25.0-35.0) pg MCHC 33.5 (31.0-37.0) g/dL RDW 13.1 (11.5-15.5) % Plt Count 209 (150-450) k/uL Neutrophils % 48 % Lymphocytes % 41 % Monocytes % 7 % Eosinophils % 2 % Basophils % 1 % Neutrophils # 2.9 (1.3-7.7) k/uL Lymphocytes # 2.5 (1.0-4.8) k/uL Monocytes # 0.4 (0-1.0) k/uL Eosinophils # 0.1 (0-0.7) k/uL Basophils # 0.1 (0-0.2) k/uL PT 10.3 (9.0-12.0) sec INR 1.1 (<1.2) APTT 22.9 (22.0-30.0) sec Sodium 147 H (137-145) mmol/L Potassium 3.7 (3.5-5.1) mmol/L Chloride 109 H (98-107) mmol/L Carbon Dioxide 24 (22-30) mmol/L Anion Gap 14 mmol/L BUN 18 H (7-17) mg/dL Creatinine 0.70 (0.52-1.04) mg/dL Est GFR (CKD-EPI)AfAm >90 (>60 ml/min/1.73 sqM) Est GFR (CKD-EPI)NonAf >90 (>60 ml/min/1.73 sqM) Glucose 108 H (74-99) mg/dL Calcium 9.4 (8.4-10.2) mg/dL Total Bilirubin 0.2 (0.2-1.3) mg/dL AST 23 (14-36) U/L ALT 33 (9-52) U/L Alkaline Phosphatase 72 (38-126) U/L Total Protein 6.5 (6.3-8.2) g/dL Albumin 4.1 (3.5-5.0) g/dL Disposition Clinical Impression: Facial paresthesia, Headache, History of benign neoplasm of brainstem, Hypernatremia, Hypochloremia Disposition: HOME SELF-CARE Condition: Good Instructions: Paresthesia (ED), General Headache (ED), Hypernatremia (ED) Is patient prescribed a controlled substance at d/c from ED?: No Referrals: Sue Abreu MD [Primary Care Provider] - 1-2 days Brianna Cardona MD [STAFF PHYSICIAN] - As Soon As Possible Time of Disposition: 21:10
[2017-09-03 18:53] LABS: Basophils # (A) 0.1 k/uL (0-0.2); Basophils % (A) 1 %; Eosinophils # (A) 0.1 k/uL (0-0.7); Eosinophils % (A) 2 %; HCT 43.3 % (34.0-46.0); HGB 14.5 gm/dL (11.4-16.0); Lymphocytes # (A) 2.5 k/uL (1.0-4.8); Lymphocytes % (A) 41 %; MCH 30.4 pg (25.0-35.0); MCHC 33.5 g/dL (31.0-37.0); MCV 90.9 fL (80.0-100.0); Mean Platelet Volume 7.6; Monocytes # (A) 0.4 k/uL (0-1.0); Monocytes % (A) 7 %; Neutrophils # (A) 2.9 k/uL (1.3-7.7); Neutrophils % (A) 48 %; Platelet Count 209 k/uL (150-450); RBC 4.77 m/uL (3.80-5.40); RDW 13.1 % (11.5-15.5); WBC 6.1 k/uL (3.8-10.6)
[2017-09-03 19:00] LABS: INR 1.1 (<1.2); Partial Thromboplastin Time 22.9 sec (22.0-30.0); Prothrombin Time 10.3 sec (9.0-12.0)
[2017-09-03 19:07] LABS: ALT 33 U/L (9-52); AST 23 U/L (14-36); Albumin 4.1 g/dL (3.5-5.0); Alkaline Phosphatase 72 U/L (38-126); Anion Gap 14 mmol/L; Blood Urea Nitrogen 18 mg/dL (7-17); Calcium 9.4 mg/dL (8.4-10.2); Carbon Dioxide 24 mmol/L (22-30); Chloride 109 mmol/L (98-107); Glucose 108 mg/dL (74-99); Potassium 3.7 mmol/L (3.5-5.1); Sodium 147 mmol/L (137-145); Total Bilirubin 0.2 mg/dL (0.2-1.3); Total Protein 6.5 g/dL (6.3-8.2)
--- NOTE | 2017-09-03 20:21 | CT ---
EXAMINATION TYPE: CT brain wo/w con DATE OF EXAM: 09/03/2017 COMPARISON: 03/29/2017 and 10/28/2016 HISTORY: 52-year-old female Superior and Posterior RUBIN for 2 days. Known brainstem tumor TECHNIQUE: Examination was done in axial plane before and after administration of 100 mL Isovue-300 IV contrast. Coronal and sagittal reconstructions performed. CT DLP: 2196 mGycm Automated exposure control for dose reduction was used. FINDINGS: There is no evidence of acute intracranial hemorrhage, acute ischemic changes, mass, mass-effect, or extra-axial fluid collection. There is no effacement of cerebral sulci or basal subarachnoid cister ns. There is no hydrocephalus. There is no midline shift. Sosa-white matter distinction is preserv ed. After IV contrast administration, dural venous sinuses are noted to be patent. Redemonstrated enhanci ng 8 mm nodular focus along the left paramedian cervicomedullary junction. No other enhancing lesions are seen. No convincing increase in size. Paranasal sinuses and mastoid air cells are well pneumatized. Orbits and globes are intact. IMPRESSION: No acute intracranial abnormality seen. 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 As mentioned on the MRI of 07/12, annual surveillance can be performed. No other enhancing lesions.
[2017-09-03 21:25] VITALS: BP 114/68; PULSE 53; RESP 18; TEMP 98.7
== END 2017-09-03 21:20 | disposition home or self-care (01) ==
LOC: EC 17:53
DX: E87.0 Hyperosmolality and hypernatremia (principal); E87.8 Other disorders of electrolyte and fluid balance, not elsewhere classified; R20.2 Paresthesia of skin; R51 Headache; Z86.011 Personal history of benign neoplasm of the brain; Z79.899 Other long term (current) drug therapy
CPT/HCPCS: 36415; 93005; 80053; 85025; 85610; 85730; 70470; 99284; 96374; J1885; Q9967

== ENCOUNTER → 2017-09-23 | Outpatient (CLI) | payer BC ==
--- NOTE | 2017-09-23 12:37 | MM ---
Reason for exam: additional evaluation requested from prior study. Last mammogram was performed 11 months ago. History: Took hormonal contraceptives for 6 months. Physical Findings: Nurse did not find any significant physical abnormalities on exam. MG 3D Diag Mammo W/Cad KAI Bilateral CC and MLO view(s) were taken. CC with magnification, ML with magnification, and ML view(s) were taken of the right breast. Prior study comparison: October 14, 2016, bilateral MG diagnostic mammo w CAD KAI. April 29, 2016, bilateral MG diagnostic mammo w CAD KAI. Finding: There are new intermediate concern, suspicious fine, grouped/clustered calcifications in the upper inner quadrant, anterior position of the right breast, 2cm from the nipple, not identified on magnifications views. There are new grouped, punctate calcifications in the right upper outer quadrant, 6 cm from the nipple, better visualized on magnification views. Finding is changed since October 14, 2016 and April 29, 2016. These results were verbally communicated with the patient and result sheet given to the patient on 09/23/17. ASSESSMENT: Suspicious, BI-RAD 4 RECOMMENDATION: Surgical consultation of the right breast. Stereotactic core biopsy of the right breast. (right breast 10 o'clock middle position calcifications 6cm from the nipple) Ultrasound core biopsy of the right breast. Called Dr. Abreu with mammographic findings and has scheduled an appointment for the patient for 09/29/[address] Mcrae. PRELIMINARY REPORT CALLED AND FAXED TO DR. MRCAE ON 09/23/17.
--- NOTE | 2017-09-23 12:40 | USB ---
Reason for exam: follow-up at short interval from prior study. History: Took hormonal contraceptives for 6 months. US Breast BILAT Right complete breast ultrasound includes all four quadrants, the retroareolar region and axilla. Finding demonstrates a 0.6 x 0.2 x 0.5cm mixed lesion at 6 o'clock and a 0.5 x 0.6 x 0.3cm solid lesion at 10 o'clock for which a biopsy is recommended. Left complete breast ultrasound includes all four quadrants, the retroareolar region and axilla. Finding demonstrates a 0.3 x 0.2 x 0.4cm lesion too small to characterize at 2 o'clock and a 0.7 x 0.3 x 0.6cm solid lesion at 11 o'clock, present previously, stable. These results were verbally communicated with the patient and result sheet given to the patient on 09/23/17. ASSESSMENT: Suspicious, BI-RAD 4 RECOMMENDATION: Surgical consultation of the right breast. (10 o'clock, see also mammogram report for right stereo calcification recommendation) Called Dr. Abreu with mammographic findings and has scheduled an appointment for the patient for 09/29/[address] Mcrae. PRELIMINARY REPORT CALLED AND FAXED TO DR. MCRAE ON 09/23/17.
== END | disposition home or self-care (01) ==
LOC: RADMAMWWP 09:35
PROVIDERS: ATTEND Internal Medicine
DX: R92.8 Other abnormal and inconclusive findings on diagnostic imaging of breast (principal)
CPT/HCPCS: 77062; 77066

== ENCOUNTER → 2017-10-07 | Outpatient (CLI) | payer BC ==
[2017-10-07 07:23] VITALS: RESP 16; BMI 28.7
[2017-10-07 11:02] VITALS: BP 131/65; PULSE 54; TEMP 98.7
--- NOTE | 2017-10-07 12:36 | USB ---
EXAMINATION TYPE: US biopsy breast VAD RT DATE OF EXAM: 10/07/2017 CLINICAL HISTORY: R92.8 prev abnormal. TECHNIQUE: Ultrasound guided core biopsy of right breast. COMPARISON: 09/23/2017 FINDINGS: The procedure of ultrasound guided core biopsy was explained to the patient. Benefits, alt ernatives, and risks were discussed. An informed consent was then obtained. Preprocedural timeout w as performed. The patient was placed in supine positioning for imaging and for the procedure. The overlying skin w as prepped and draped in usual sterile fashion. 10 cc of lidocaine buffered with bicarbonate was used as anesthetic into the skin and subcutaneous tissue up to the 0.5 x 0.6 x 0.3 cm solid mass at the 1 0:00 position for which biopsy was recommended. Under ultrasound guidance, a 12-gauge vacuum assisted biopsy gun device was used to obtain 5 [address]es. Following this, a coil-shaped biopsy marker was left in lesion. Postprocedural mammogram demo nstrates appropriate placement of this biopsy marker. The patient tolerated the procedure well without any immediate complication. The patient was kept in the radiology department for short stay after the procedure and then discharged home in stable condi tion. IMPRESSION: Successful, uncomplicated ultrasound guided core biopsy of the intermediate suspicion 0.5 x 0.6 x 0.3 cm mass at the 10:00 position within the right breast, full pathology results to follow.
--- NOTE | 2017-10-08 12:14 | MM ---
EXAMINATION TYPE: MG stereo VAD BX RT DATE OF EXAM: 10/07/2017 COMPARISON: NONE CLINICAL HISTORY: Indeterminate right breast calcifications for which biopsy was recommended TECHNIQUE: Stereotactic guided core biopsy of right breast. FINDINGS: The procedure of stereotactic guided core biopsy was explained to the patient. Benefits, a lternatives, and risks were discussed. An informed consent was then obtained. Preprocedural timeout was performed. The shortness pathway for biopsy was chosen. Shortness pathway was medial to lateral approach. 10 cc of lidocaine without epinephrine was utilized to anesthetize the subcutaneous soft tissues and skin surface. 10 cc of lidocaine with epinephrine was utilized to anesthetize the subcutaneous tissues at the site of biopsy prior to obtaining samples. A vacuum assisted biopsy gun was used to obtain 7 cor e samples. The patient tolerated the procedure well without any immediate complication. The patient was kept in the radiology department for short stay after the procedure and then discharged home in stable condi tion. Targeted calcifications are identified in specimen mammogram. Post biopsy mammogram shows the biopsy marker to appear satisfactory position relative to the targeted area of concern on the LM brenda ge, however it is located medial to the site of biopsy on CC view. However post procedure magnificat ion views were performed in the cc view and the targeted calcifications appear absent therefore migra tion of the biopsy marker suspected. IMPRESSION: SUCCESSFUL, UNCOMPLICATED STEREOTACTIC GUIDED CORE BIOPSY OF RIGHT BREAST CALCIFICATIONS, FULL PATHOL OGY RESULTS TO FOLLOW. Postprocedure magnification views were performed in the targeted calcificatio ns appear to be absent therefore medial migration of the biopsy marker suspected. The biopsy marker i s appropriately placed on the LM view.
== END | disposition home or self-care (01) ==
LOC: RADMAMWWP 06:58
PROVIDERS: ATTEND Surgery
DX: R92.8 Other abnormal and inconclusive findings on diagnostic imaging of breast (principal)
CPT/HCPCS: 19081; 19083; A4648 ×2; J2001

== ENCOUNTER 2017-10-08 19:29 | Emergency (ER) | payer BC ==
[2017-10-08 19:38] VITALS: TEMP 98.7
[2017-10-08] MEDS ORDERED: SODIUM CHLORIDE 0.9% 1,000 ML IV STA (19:46)
--- NOTE | 2017-10-08 20:11 | ED ---
General Adult HPI - General Chief complaint: Chest Pain Stated complaint: Chest pain Time Seen by Provider: 10/08/17 19:46 Source: patient, family, RN notes reviewed, old records reviewed Mode of arrival: ambulatory Limitations: no limitations - History of Present Illness Initial comments: This is a 32-year-old female the ER for evaluation. Patient does say for evaluation of chest pain right-sided chest pain just in the restaurant her chest up into her back. Patient has had her gallbladder removed, she does have history of heart evaluation with negative stress test within the last year. No recent fever cough or congestion, no trauma. Patient has no cardiac risk factors. No family history no high blood pressure normal cholesterol no diabetes no history of smoking - Related Data Home Medications Medication Instructions Recorded Confirmed Multivitamins, Thera [Multivitamin 1 tab PO DAILY 10/28/16 10/08/17 (formulary)] Topiramate [Topamax] 50 mg PO BID 03/29/17 10/08/17 Allergies Allergy/AdvReac Type Severity Reaction Status Date / Time No Known Allergies Allergy Verified 10/08/17 20:03 Review of Systems ROS Statement: Those systems with pertinent positive or pertinent negative responses have been documented in the HPI. ROS Other: All systems not noted in ROS Statement are negative. 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- benign History of Any Multi-Drug Resistant Organisms: None Reported Past Surgical History: Appendectomy, Section, Cholecystectomy, Hysterectomy Additional Past Surgical History / Comment(s): c-sect x 3, masectomy complete Past Anesthesia/Blood Transfusion Reactions: No Reported Reaction Past Psychological History: No Psychological Hx Reported Smoking Status: Never smoker Past Alcohol Use History: None Reported Past Drug Use History: None Reported - Past Family History Father History Unknown: Yes Mother Family Medical History: Cancer Additional Family Medical History / Comment(s): uterine and lung cancer Brother(s) Family Medical History: No Reported History Daughter(s) Family Medical History: No Reported History Son(s) Family Medical History: No Reported History General Exam Limitations: no limitations General appearance: alert, in no apparent distress Head exam: Present: atraumatic, normocephalic, normal inspection Eye exam: Present: normal appearance, PERRL, EOMI. Absent: scleral icterus, conjunctival injection, periorbital swelling ENT exam: Present: normal exam, mucous membranes moist Neck exam: Present: normal inspection. Absent: tenderness, meningismus, lymphadenopathy Respiratory exam: Present: normal lung sounds bilaterally. Absent: respiratory distress, wheezes, rales, rhonchi, stridor Cardiovascular Exam: Present: regular rate, normal rhythm, normal heart sounds. Absent: systolic murmur, diastolic murmur, rubs, gallop, clicks GI/Abdominal exam: Present: soft, normal bowel sounds. Absent: distended, tenderness, guarding, rebound, rigid Extremities exam: Present: normal inspection, full ROM, normal capillary refill. Absent: tenderness, pedal edema, joint swelling, calf tenderness Back exam: Present: normal inspection Neurological exam: Present: alert, oriented X3, CN II-XII intact Psychiatric exam: Present: normal affect, normal mood Skin exam: Present: warm, dry, intact, normal color. Absent: rash Course Vital Signs 10/08/17 10/08/17 10/08/17 19:34 20:38 20:59 Temperature 98.7 F Pulse Rate 69 54 L 53 L Respiratory 20 15 18 Rate Blood Pressure 130/82 123/65 115/64 O2 Sat by Pulse 99 96 100 Oximetry - Reevaluation(s) Reevaluation #1: 10/08/17 21:46 Medical record is reviewed EKG Findings - EKG Comments: EKG Findings:: EKG shows sinus bradycardia rate 51, NM 150, QRS 88, QTc 460 Medical Decision Making - Medical Decision Making 52 female the ER for evaluation, call to chest pain today, CT is negative EKG is negative troponin is negative. Patient can be discharged home - Lab Data Result diagrams: 10/08/17 19:58 10/08/17 19:58 Lab Results 10/08/17 10/08/17 10/08/17 Range/Units 19:58 19:58 19:58 WBC 6.8 (3.8-10.6) k/uL RBC 4.75 (3.80-5.40) m/uL Hgb 14.2 (11.4-16.0) gm/dL Hct 43.4 (34.0-46.0) % MCV 91.4 (80.0-100.0) fL MCH 29.9 (25.0-35.0) pg MCHC 32.7 (31.0-37.0) g/dL RDW 13.0 (11.5-15.5) % Plt Count 189 (150-450) k/uL Neutrophils % 40 % Lymphocytes % 48 % Monocytes % 7 % Eosinophils % 2 % Basophils % 1 % Neutrophils # 2.7 (1.3-7.7) k/uL Lymphocytes # 3.3 (1.0-4.8) k/uL Monocytes # 0.5 (0-1.0) k/uL Eosinophils # 0.2 (0-0.7) k/uL Basophils # 0.1 (0-0.2) k/uL PT (9.0-12.0) sec INR (<1.2) APTT (22.0-30.0) sec Sodium 142 (137-145) mmol/L Potassium 3.5 (3.5-5.1) mmol/L Chloride 107 (98-107) mmol/L Carbon Dioxide 25 (22-30) mmol/L Anion Gap 10 mmol/L BUN 23 H (7-17) mg/dL Creatinine 0.80 (0.52-1.04) mg/dL Est GFR (CKD-EPI)AfAm >90 (>60 ml/min/1.73 sqM) Est GFR (CKD-EPI)NonAf 86 (>60 ml/min/1.73 sqM) Glucose 102 H (74-99) mg/dL Calcium 9.5 (8.4-10.2) mg/dL Magnesium 2.0 (1.6-2.3) mg/dL Total Bilirubin 0.2 (0.2-1.3) mg/dL AST 23 (14-36) U/L ALT 33 (9-52) U/L Alkaline Phosphatase 75 (38-126) U/L Total Creatine Kinase 72 (30-135) U/L CK-MB (CK-2) 0.3 (0.0-2.4) ng/mL CK-MB (CK-2) Rel Index 0.4 Troponin I <0.012 (0.000-0.034) ng/mL NT-Pro-B Natriuret Pep pg/mL Total Protein 6.7 (6.3-8.2) g/dL Albumin 4.2 (3.5-5.0) g/dL Lipase 107 (23-300) U/L 10/08/17 10/08/17 Range/Units 19:58 19:58 WBC (3.8-10.6) k/uL RBC (3.80-5.40) m/uL Hgb (11.4-16.0) gm/dL Hct (34.0-46.0) % MCV (80.0-100.0) fL MCH (25.0-35.0) pg MCHC (31.0-37.0) g/dL RDW (11.5-15.5) % Plt Count (150-450) k/uL Neutrophils % % Lymphocytes % % Monocytes % % Eosinophils % % Basophils % % Neutrophils # (1.3-7.7) k/uL Lymphocytes # (1.0-4.8) k/uL Monocytes # (0-1.0) k/uL Eosinophils # (0-0.7) k/uL Basophils # (0-0.2) k/uL PT 9.8 (9.0-12.0) sec INR 1.0 (<1.2) APTT 22.6 (22.0-30.0) sec Sodium (137-145) mmol/L Potassium (3.5-5.1) mmol/L Chloride (98-107) mmol/L Carbon Dioxide (22-30) mmol/L Anion Gap mmol/L BUN (7-17) mg/dL Creatinine (0.52-1.04) mg/dL Est GFR (CKD-EPI)AfAm (>60 ml/min/1.73 sqM) Est GFR (CKD-EPI)NonAf (>60 ml/min/1.73 sqM) Glucose (74-99) mg/dL Calcium (8.4-10.2) mg/dL Magnesium (1.6-2.3) mg/dL Total Bilirubin (0.2-1.3) mg/dL AST (14-36) U/L ALT (9-52) U/L Alkaline Phosphatase (38-126) U/L Total Creatine Kinase (30-135) U/L CK-MB (CK-2) (0.0-2.4) ng/mL CK-MB (CK-2) Rel Index Troponin I (0.000-0.034) ng/mL NT-Pro-B Natriuret Pep 44 pg/mL Total Protein (6.3-8.2) g/dL Albumin (3.5-5.0) g/dL Lipase (23-300) U/L - Radiology Data Radiology results: report reviewed (Chest x-ray negative CTA chest negative for acute disease), image reviewed Disposition Clinical Impression: Chest pain, Atypical chest pain Disposition: HOME SELF-CARE Condition: Good Instructions: Chest Pain (ED) Is patient prescribed a controlled substance at d/c from ED?: No Referrals: Sue Abreu MD [Primary Care Provider] - 1-2 days
[2017-10-08 20:15] LABS: Basophils # (A) 0.1 k/uL (0-0.2); Basophils % (A) 1 %; Eosinophils # (A) 0.2 k/uL (0-0.7); Eosinophils % (A) 2 %; HCT 43.4 % (34.0-46.0); HGB 14.2 gm/dL (11.4-16.0); Lymphocytes # (A) 3.3 k/uL (1.0-4.8); Lymphocytes % (A) 48 %; MCH 29.9 pg (25.0-35.0); MCHC 32.7 g/dL (31.0-37.0); MCV 91.4 fL (80.0-100.0); Mean Platelet Volume 7.5; Monocytes # (A) 0.5 k/uL (0-1.0); Monocytes % (A) 7 %; Neutrophils # (A) 2.7 k/uL (1.3-7.7); Neutrophils % (A) 40 %; Platelet Count 189 k/uL (150-450); RBC 4.75 m/uL (3.80-5.40); WBC 6.8 k/uL (3.8-10.6)
[2017-10-08 20:30] LABS: Partial Thromboplastin Time 22.6 sec (22.0-30.0); Prothrombin Time 9.8 sec (9.0-12.0)
[2017-10-08 20:35] LABS: ALT 33 U/L (9-52); AST 23 U/L (14-36); Albumin 4.2 g/dL (3.5-5.0); Alkaline Phosphatase 75 U/L (38-126); Anion Gap 10 mmol/L; Blood Urea Nitrogen 23 mg/dL (7-17); Calcium 9.5 mg/dL (8.4-10.2); Carbon Dioxide 25 mmol/L (22-30); Chloride 107 mmol/L (98-107); Glucose 102 mg/dL (74-99); Lipase 107 U/L (23-300); Potassium 3.5 mmol/L (3.5-5.1); Sodium 142 mmol/L (137-145); Total Bilirubin 0.2 mg/dL (0.2-1.3); Total Protein 6.7 g/dL (6.3-8.2)
[2017-10-08 20:50] LABS: Creatine Kinase 72 U/L (30-135)
[2017-10-08 21:00] VITALS: BP 115/64; PULSE 53; RESP 18
[2017-10-08 21:03] LABS: Creatine Kinase MB 0.3 ng/mL (0.0-2.4); Troponin I <0.012 ng/mL (0.000-0.034)
--- NOTE | 2017-10-08 21:07 | XR ---
EXAMINATION TYPE: XR chest 2V DATE OF EXAM: 10/08/2017 COMPARISON: 03/29/2017 HISTORY: Chest pain TECHNIQUE: Frontal and lateral views of the chest are obtained. FINDINGS: Heart and mediastinum are normal. Lungs are clear. Diaphragm is normal. There is no sign o f a pneumothorax. There are chest leads. Bony thorax is intact. IMPRESSION: Normal chest. No change.
--- NOTE | 2017-10-08 21:41 | CT ---
EXAMINATION TYPE: CT angio chest DATE OF EXAM: 10/08/2017 9:35 PM COMPARISON: NONE HISTORY: Chest pain CT DLP: 166.2 mGycm Automated exposure control for dose reduction was used. CONTRAST: CTA scan of the thorax is performed with IV Contrast, patient injected with 64ml mL of Isovue 370, pu lmonary embolism protocol. There are 3-D post processed images.. FINDINGS: The lungs are clear of infiltrate. There is no pleural effusion. There is no pericardial effusion. There are no filling defects in the pulmonary arteries. There are no hilar masses. There is no medias tinal adenopathy. Thoracic aorta appears normal. There is no evidence of aneurysm or dissection. Ther e is mild spurring in the thoracic spine. IMPRESSION: NEGATIVE EXAM. NO EVIDENCE OF PULMONARY EMBOLISM.
== END 2017-10-08 22:14 | disposition home or self-care (01) ==
LOC: EC 19:29
DX: R07.89 Other chest pain (principal); Z86.011 Personal history of benign neoplasm of the brain; Z79.899 Other long term (current) drug therapy
CPT/HCPCS: 36415; 93005; 83880; 80053; 82550; 82553; 83690; 83735; 84484; 85025; 85610; 85730; 71046; 71275; 99285; 96360; 96361; Q9967

== ENCOUNTER 2017-10-28 07:17 | Day surgery (SDC) | payer BC ==
[2017-10-22 11:29] VITALS: BMI 28.1
[~2017-10-28 07:17] MED LIST: ALPRAZolam 0.5 MG TAB PO PRN; DEXAMETHASONE SOD PHOSPHATE 10 MG/ML 1 ML VIAL IV ONE; HYDROmorphone 0.5 MG/0.5 ML SYRINGE IVP PRN; LACTATED RINGERS 1,000 ML IV SCH; ONDANSETRON 4 MG/2 ML VIAL IVP ONE; Pre Op ABX Message 1 EACH MISC MISCELLANE ONE
[2017-10-28 07:49] VITALS: RESP 16
[2017-10-28] MEDS ORDERED: LIDOCAINE 1% 20 ML VIAL (10MG/ML) FOR IV START INTRADERMA ONE (08:00)
[2017-10-28 08:44] VITALS: TEMP 97.9
[2017-10-28] MEDS ORDERED: SODIUM BICARB 4% 5 ML VIAL (0.48 MEQ/ML) MISCELLANE ONE (08:50)
[2017-10-28] MEDS ORDERED: LIDOCAINE 1% INJ 10MG/ML (20 ML MDV) SQ ONE (08:50)
[2017-10-28] MEDS ORDERED: PHENYLEPHRINE-0.9% NACL SYG 1 MG/10 ML SYRINGE ONE (10:15)
[2017-10-28] MEDS ORDERED: PROPOFOL 10 MG/ML 20 ML VIAL IV ONE (10:15)
[2017-10-28] MEDS ORDERED: fentaNYL (PF) 50 MCG/ML 2 ML AMP ONE (10:15)
[2017-10-28] MEDS ORDERED: LIDOCAINE 2%-EPI 1:200,000 20 ML VIAL SQ ONE ×2 (10:34)
[2017-10-28] MEDS ORDERED: LACTATED RINGERS 1,000 ML IV ONE (11:09)
--- NOTE | 2017-10-28 11:31 | P.OP ---
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 The patient was sent for a stereotactic core biopsy and out of the 2 sites that were biopsied, one site was noted to have atypical ductal hyperplasia. Secondary to this diagnosis, plan for lumpectomy was made. The patient was excellent the risks, benefits and alternatives to the procedure provided consent prior to attending the operating suite. Operative Findings: Right breast lumpectomy site was sent for imaging after removal. Specimen was noted to have clipped in place. This was confirmed by radiologist. Description of Procedure: The patient was brought into the operating suite and placed in supine position on the operating table. Sedation was provided by anesthesia. The patient did have a needle localization of the suspected area prior to arriving in the operating suite. The patient was prepped and draped in regular sterile fashion. A curvilinear incision was made on the medial aspect of the breast. Dissection was carried to along the needle localization with imaging available in the operating room. The affected area was dissected free using electrocautery. Dissection was made in 360 fashion to remove the entire affected area. This was sent for imaging by radiology. Radiologist did confirm the clip was in place in the specimen. Hemostasis was maintained. Skin incision was closed with 4-0 Vicryl subcuticular suture. Skin glue was applied. The patient was awakened in the operating suite and taken to postanesthesia care unit in stable condition.
[2017-10-28 12:09] VITALS: BP 125/72; PULSE 87
--- NOTE | 2017-10-28 13:22 | MM ---
EXAMINATION TYPE: MG pre op needle loc RT, MG surgical specimen RT DATE OF EXAM: 10/28/2017 COMPARISON: Prior mammogram October 07, 2017 and older studies. CLINICAL HISTORY: Stereotactic guided core biopsy of ADH 3 weeks earlier. TECHNIQUE: Needle localization with wire placement and surgical excision of area of concern in the right breast. FINDINGS: The procedure of needle localization with wire placement and than surgical excision was explained to the patient. Benefits, alternatives, and risks were discussed. An informed consent was then obtained. The shortest pathway for procedure was chosen. Shortest pathway was medial approach. The overlying skin was prepped and draped in usual sterile fashion. Lidocaine buffered with bicarbonate was used as anesthetic into the skin and subcutaneous tissue up to the level of area of concern. A 7 cm needle was used. It was placed via a 7 approach under mammographic guidance. It was purposely placed roughly 4 to 5 cm deep to the clip as there is medial migration of clip from site of calcifications noted. Subsequent 90 degrees mammogram show the needle to be in satisfactory position relative to the targeted area. At this point, wire was placed and the needle was withdrawn. The wire was fixed to patient's skin. Images were marked for surgeon. The patient tolerated the procedure well without any immediate complication. The patient was kept in the radiology department for short stay after the procedure and then taken to surgery for surgical excision. Targeted clip and wire are identified in specimen mammogram. The patient was kept in hospital for short stay after the procedure and then discharged home in stable condition. IMPRESSION: Successful, uncomplicated needle localization with wire placement and surgical excision of targeted clip and deeper tissue in the right breast, full pathology results to follow. 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 Adjacent breast parenchyma shows fibrocystic spectrum changes and intraductal mineralizations. Negative for residual atypical ductal hyperplasia. Prior biopsy changes. Immunohistochemical stains for Cytokeratin 5/6, E-Cadherin and p63 are negative for atypical hyperplasia, DCIS or a lobular lesion and confirm the intraductal papilloma. Recommendation Follow up mammogram of the right breast in 6 months. ANTWAN
== END 2017-10-28 12:29 | disposition home or self-care (01) ==
LOC: OR 07:17
PROVIDERS: ATTEND Surgery
DX: D24.1 Benign neoplasm of right breast (principal); N60.81 Other benign mammary dysplasias of right breast; N60.11 Diffuse cystic mastopathy of right breast; D49.6 Neoplasm of unspecified behavior of brain; Z79.899 Other long term (current) drug therapy
CPT/HCPCS: 88342; 88307; 88341; 76098; 19281; 19125; J1100; J2405; J2001; J3010; J2370; J2704

== ENCOUNTER → 2018-01-12 | Outpatient (CLI) | payer BC ==
[2018-01-12 22:48] LABS: Rheumatoid Factor 6 IU/mL (0-15)
== END | disposition home or self-care (01) ==
LOC: LABWHC1 09:31
PROVIDERS: ATTEND Nurse Practitioner Acute Care
DX: M13.0 Polyarthritis, unspecified (principal)
CPT/HCPCS: 36415; 85652; 86038; 86140; 86431

== ENCOUNTER 2018-01-26 00:24 | Emergency (ER) | payer BC ==
[2018-01-26 00:31] VITALS: TEMP 98
[2018-01-26] MEDS ORDERED: KETOROLAC 30 MG/ML 1 ML VIAL IVP STA (01:20)
[2018-01-26] MEDS ORDERED: ASPIRIN 81 MG PO STA (01:20)
[2018-01-26] MEDS ORDERED: SODIUM CHLORIDE 0.9% 1,000 ML IV STA (01:20)
--- NOTE | 2018-01-26 01:23 | ED ---
Chest Pain HPI - General Chief Complaint: Chest Pain Stated Complaint: Chest pain, headache, dizzy Time Seen by Provider: 01/26/18 00:32 Source: patient Mode of arrival: wheelchair Limitations: physical limitation - History of Present Illness Initial Comments: +52-year-old female with past medical history as documented who presents to the emergency department multiple complaints. 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 Patient reports that they're uncertain what the cause of the tumor the type of tumor is but that they can do nothing about it so she just has annual MRIs. Her last MRI was year. Patient reports that she has chronic daily migraines, she usually takes Tylenol Motrin with improvement in her migraines. She reports that throughout the day on Wednesday she had a migraine headache, she took Tylenol and Motrin with no improvement. Patient reports she's had headaches similar to this in the past and has come to the ER and her headache is always resolved with IV Toradol. She reports that along with this headache she has been experiencing a feeling of being off balance. Patient actually has a history of this as well and has attended physical therapy due to her balance issues. She states that she just feels like things are tilting somewhat. However she reports she is able to walk without difficulty. She also states that around 11 AM on Wednesday she developed a pain with across her chest. She reports that she was rubbing her chest to the pain and felt as though she could feel a lump on her rib and became concerned that there might be a growth on one of her ribs. Patient reports that all of these things going on throughout the day prompted her to come to the ER this morning. - Related Data Home Medications Medication Instructions Recorded Confirmed Multivitamins, Thera [Multivitamin 1 tab PO DAILY 10/28/16 10/22/17 (formulary)] Topiramate [Topamax] 50 mg PO BID 03/29/17 10/28/17 Previous Rx's Medication Instructions Recorded Hydrocodone/Acetaminophen [[place] 1 tab PO Q6HR PRN 3 Days #12 tab 10/28/17 5-325] Allergies Allergy/AdvReac Type Severity Reaction Status Date / Time No Known Allergies Allergy Verified 01/26/18 00:31 Review of Systems ROS Statement: Those systems with pertinent positive or pertinent negative responses have been documented in the HPI. ROS Other: All systems not noted in ROS Statement are negative. Constitutional: Denies: fever, chills Eyes: Denies: eye pain, vision change ENT: Denies: ear pain, throat pain, hearing loss Respiratory: Denies: cough, dyspnea Cardiovascular: Reports: chest pain Endocrine: Reports: fatigue Gastrointestinal: Denies: abdominal pain, nausea, vomiting Genitourinary: Denies: urgency, dysuria Musculoskeletal: Denies: back pain Skin: Denies: rash, lesions Neurological: Reports: headache. Denies: abnormal gait EKG Findings - EKG Comments: EKG Findings:: EKG obtained at 12:46 AM, rate is 57, rhythm is sinus bradycardia , there is a normal axis, normal intervals, CO 152, QRS 86, QTC is 432. There are no acute ST elevations or depressions no evidence of acute ischemia or infarction. 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, History of Any Multi-Drug Resistant Organisms: None Reported Past Surgical History: Appendectomy, Breast Surgery, Section, Cholecystectomy, Hysterectomy Additional Past Surgical History / Comment(s): c-sect x 3, breast surgery- lumpectomy Past Anesthesia/Blood Transfusion Reactions: No Reported Reaction Past Psychological History: No Psychological Hx Reported Smoking Status: Never smoker Past Alcohol Use History: None Reported Past Drug Use History: None Reported - Past Family History Father History Unknown: Yes Mother Family Medical History: Cancer Additional Family Medical History / Comment(s): uterine and lung cancer Brother(s) Family Medical History: No Reported History Daughter(s) Family Medical History: No Reported History Son(s) Family Medical History: No Reported History General Exam - General Exam Comments Initial Comments: GENERAL: Patient is well-developed and well-nourished. Patient is nontoxic and well- hydrated and is in no distress. Patient is sitting up in the bed with a blanket wrapped around her head HENT: Normocephalic, Atraumatic. Neck is soft and supple. No significant lymphadenopathy is noted. Oropharynx is clear. Moist mucous membranes. Neck has full range of motion without eliciting any pain. EYES: The sclera were anicteric and conjunctiva were pink and moist. Extraocular movements were intact and pupils were equal round and reactive to light. Eyelids were unremarkable. PULMONARY: Unlabored respirations. Good breath sounds bilaterally. No audible rales rhonchi or wheezing was noted. CARDIOVASCULAR: There is a regular rate and rhythm without any murmurs gallops or rubs. ABDOMEN: Soft and nontender with normal bowel sounds. SKIN: Skin is clear with no lesions or rashes and otherwise unremarkable. NEUROLOGIC: Patient is alert and oriented x3. Cranial nerves II through XII are grossly intact. Motor and sensory are also intact. Normal speech, volume and content. Symmetrical smile. Normal finger-nose, normal heel young[place], normal repetitive tasks MUSCULOSKELETAL: Normal extremities with adequate strength and full range of motion. No lower extremity swelling or edema. No calf tenderness. LYMPHATICS: No significant lymphadenopathy is noted PSYCHIATRIC: Normal psychiatric evaluation. Limitations: no limitations Limitations: physical limitation Course Vital Signs 01/26/18 01/26/18 00:28 04:11 Temperature 98.0 F Pulse Rate 73 64 Respiratory 18 16 Rate Blood Pressure 118/78 103/67 O2 Sat by Pulse 100 99 Oximetry Chest Pain MDM - MDM The patient was seen and evaluated, history was obtained from the patient and review of medical record She reports that she has chronic headaches secondary to a tumor in her brain stem. Patient reports that they don't know the type of tumor and can't have any workup so she just sees her oncologist once a year. Patient states that in the past she has come to the ER for IV Toradol with resolution of her headache. Patient also states that a computed tomography scan with contrast is required to see her tumor. Patient reports headache today is same as previous. Status associated with any focal neurologic deficits any fever, is not the worse headache of her life, wasn 't sudden in onset, was not thunderclap. Patient also notes a vague pain that radiates across her entire chest that is been persistent for like 12 hours. Patient states that while rubbing her chest during the day she noted a lump on her rib and this made her very concerned. She has no cardiac history, no cardiac risk factors, is a nonsmoker Labs and imaging were ordered Labs are unremarkable chest x-ray unremarkable computed tomography scan with no change from previous Patient was reevaluated after Toradol, results were discussed. Patient reports headache has resolved and she is feeling much better. I offered her admission for further evaluation for the atypical chest pain however patient states she is feeling well and would like to be discharged home. Questions pertaining to care were answered best my ability, return parameters were discussed and patient was discharged home in stable condition. Disposition Clinical Impression: Chronic headache, Atypical chest pain Disposition: HOME SELF-CARE Condition: Good Instructions: Chest Pain (ED) Is patient prescribed a controlled substance at d/c from ED?: No Referrals: Sue Abreu MD [Primary Care Provider] - 1-2 days
[2018-01-26 01:32] LABS: Basophils # (A) 0.1 k/uL (0-0.2); Basophils % (A) 1 %; Eosinophils # (A) 0.2 k/uL (0-0.7); Eosinophils % (A) 3 %; HCT 42.1 % (34.0-46.0); HGB 13.8 gm/dL (11.4-16.0); Lymphocytes # (A) 2.9 k/uL (1.0-4.8); Lymphocytes % (A) 48 %; MCHC 32.8 g/dL (31.0-37.0); MCV 91.5 fL (80.0-100.0); Mean Platelet Volume 7.5; Monocytes # (A) 0.4 k/uL (0-1.0); Monocytes % (A) 6 %; Neutrophils # (A) 2.3 k/uL (1.3-7.7); Neutrophils % (A) 39 %; Platelet Count 185 k/uL (150-450)
--- NOTE | 2018-01-26 01:41 | XR ---
EXAMINATION TYPE: XR chest 2V DATE OF EXAM: 01/26/2018 COMPARISON: 10/08/2017 HISTORY: Chest pain TECHNIQUE: Frontal and lateral views of the chest are obtained. FINDINGS: Heart and mediastinum are normal. Lungs are clear. Diaphragm is normal. Bony thorax appear s normal. There are chest leads. IMPRESSION: Normal chest. No change.
[2018-01-26 01:42] LABS: Partial Thromboplastin Time 23.4 sec (22.0-30.0); Prothrombin Time 9.8 sec (9.0-12.0)
[2018-01-26 01:44] LABS: ALT 49 U/L (9-52); AST 34 U/L (14-36); Albumin 3.9 g/dL (3.5-5.0); Alkaline Phosphatase 82 U/L (38-126); Anion Gap 7 mmol/L; Blood Urea Nitrogen 21 mg/dL (7-17); Calcium 9.5 mg/dL (8.4-10.2); Carbon Dioxide 23 mmol/L (22-30); Chloride 110 mmol/L (98-107); Glucose 103 mg/dL (74-99); Magnesium 2.1 mg/dL (1.6-2.3); Potassium 3.8 mmol/L (3.5-5.1); Sodium 140 mmol/L (137-145); Total Bilirubin 0.3 mg/dL (0.2-1.3); Total Protein 6.5 g/dL (6.3-8.2)
[2018-01-26 01:49] LABS: Creatine Kinase 71 U/L (30-135)
[2018-01-26 02:01] LABS: Creatine Kinase MB 0.6 ng/mL (0.0-2.4); Troponin I <0.012 ng/mL (0.000-0.034)
[2018-01-26 02:53] LABS: Appearance,Urine Clear (Clear); Bilirubin,Urine Negative (Negative); Blood,Urine Negative (Negative); Color,Urine Colorless; Glucose,Urine (UA) Negative (Negative); Ketones,Urine Negative (Negative); Leukocyte Esterase,Urine Moderate (Negative); Nitrite,Urine Negative (Negative); PH, Urine 6.5 (5.0-8.0); Protein,Urine Negative (Negative); RBC,Urine <1 /hpf (0-5); Specific Gravity,Urine 1.004 (1.001-1.035); Squamous Epithelial Cell,Urine <1 /hpf (0-4); Urobilinogen,Urine <2.0 mg/dL (<2.0); WBC,Urine 2 /hpf (0-5)
[2018-01-26] MEDS ORDERED: RX INFO: IV CONTRAST WAS GIVEN 1 EACH MISC MISCELLANE PRN (02:58)
--- NOTE | 2018-01-26 03:34 | CT ---
EXAMINATION TYPE: CT brain w con DATE OF EXAM: 01/26/2018 COMPARISON: 09/03/2017 HISTORY: Headache. Hx. of brain stem mass CT DLP: 999.30 mGycm Automated exposure control for dose reduction was used. CONTRAST: CT scan of the head is performed with IV Contrast, patient injected with 100 mL of Isovue 300. FINDINGS: Ventricles and sulci appear normal. There is no mass effect nor midline shift. There is no sign of in tracranial hemorrhage. There is 6 mm area of increased density in the brain stem to the left of midli ne. This is seen at the level of the C1 vertebra. The calvarium is intact. I see no bony destructive process. 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 No acute intracranial abnormality.
[2018-01-26 04:12] VITALS: BP 103/67; PULSE 64; RESP 16
== END 2018-01-26 04:45 | disposition home or self-care (01) ==
LOC: EC 00:24
DX: R07.89 Other chest pain (principal); G43.909 Migraine, unspecified, not intractable, without status migrainosus; D49.6 Neoplasm of unspecified behavior of brain; Z79.899 Other long term (current) drug therapy
CPT/HCPCS: 36415; 93005; 80053; 82550; 82553; 83735; 84484; 85025; 85610; 85730; 81001; 71046; 70460; 99285; 96374; 96361; J1885; Q9967

== ENCOUNTER → 2018-05-05 | Outpatient (CLI) | payer BC ==
--- NOTE | 2018-05-09 17:30 | MM ---
Reason for exam: follow-up at short interval from prior study. Last mammogram was performed 7 months ago. History: Patient has history of high-risk lesion on a previous biopsy at age 52. Benign MG pre op needle loc RT of the right breast, October 28, 2017. High risk MG stereo VAD BX RT of the right breast, October 07, 2017. Benign US biopsy breast VAD RT of the right breast, October 07, 2017. Took hormonal contraceptives for 6 months. Physical Findings: Nurse did not find any significant physical abnormalities on exam. MG Diagnostic Mammo w CAD KAI Bilateral CC, MLO, and XCCL view(s) were taken. Prior study comparison: September 23, 2017, bilateral MG 3d diag mammo w/cad KAI. October 14, 2016, bilateral MG diagnostic mammo w CAD KAI. The breast tissue is heterogeneously dense. This may lower the sensitivity of mammography. There are round, oval circumscribed bilateral breast masses for which ultrasound was performed, bilateral whole breast, Similar to prior. There are benign-appearing bilateral breast calcifications. These results were verbally communicated with the patient and result sheet given to the patient on 05/05/18. ASSESSMENT: Probably benign, BI-RAD 3 RECOMMENDATION: Ultrasound of both breasts in 6 months.
--- NOTE | 2018-05-09 17:41 | USB ---
Reason for exam: follow-up at short interval from prior study. History: Patient has history of high-risk lesion on a previous biopsy at age 52. Benign MG pre op needle loc RT of the right breast, October 28, 2017. High risk MG stereo VAD BX RT of the right breast, October 07, 2017. Benign US biopsy breast VAD RT of the right breast, October 07, 2017. Took hormonal contraceptives for 6 months. Physical Findings: Nurse did not find any significant physical abnormalities on exam. US Breast BILAT Bilateral complete breast ultrasound includes all four quadrants, the retroareolar region and axilla. Finding demonstrates On the right breast a 2.3 x 0.4 x 1.5 cm fluid collection at lumpectomy site at 2 o'clock, a 0.5 x 0.2 x 0.4 cystic lesion at 6 o'clock previously measured 0.6 x 0.2 x 0.5 cm on 09/23/17, and at ll o'clock a 0.6 x 0.5 x 0.7 cm cystic cluster previously measured 0.6 x 0.5 x 0.7. On the left breast a 0.3 x 0.2 x 0.3 cm to small to characterized lesion at 2 o'clock that previously measured 0.3 x 0.2 x 0.4, and at 11 o'clock a 0.7 x 0.3 x 0.6 benign hypoechoic lesion that measured 0.7 x 0.3 x 0.6 in 2017, 2016 and 2015. These results were verbally communicated with the patient and result sheet given to the patient on 05/05/18. ASSESSMENT: Probably benign, BI-RAD 3 RECOMMENDATION: Ultrasound of both breasts in 6 months.
== END ==
LOC: RADMAMWWP 08:01
PROVIDERS: ATTEND Internal Medicine
DX: R92.8 Other abnormal and inconclusive findings on diagnostic imaging of breast (principal)
CPT/HCPCS: 77066

== ENCOUNTER → 2018-06-16 | Outpatient (CLI) | payer BC ==
--- NOTE | 2018-06-16 21:51 | MR ---
EXAMINATION TYPE: MR brain wo/w con DATE OF EXAM: 06/16/2018 COMPARISON: Prior MRI brain July 12, 2017 HISTORY: Brain lesion /brainstem mass per patient with dizziness or hearing loss TECHNIQUE: Multiplanar, multisequence images of the brain and brainstem is performed without and with IV contras t, utilizing 6.5 mL intravenous Gadavist . FINDINGS: Diffusion weighted images demonstrate no evidence of a recent infarct or other diffusion ab normality. There is no extra-axial fluid collection or significant white matter signal abnormality. The ventricular system and cisternal spaces are normal in size and appearance. The brain volume is age appropriate. Midline structures demonstrate normal morphology. The craniocervical junction appears within normal limits. There is redemonstration of intramedullary round lesion of low T1 and increased T2 signal wit h homogeneous postcontrast enhancement measuring roughly 7 x 7 x 6 mm involving the ventral aspect of the brainstem near the craniocervical junction not significantly changed in size or appearance from prior study. No new enhancing lesions are evident. The dural venous sinuses appear patent. The visual ized sinuses are clear and the globes are intact. 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 No new enhancing lesions are seen. Given stability and lack of surrounding e darlin cavernoma or other vascular anomaly is suspected.
--- NOTE | 2018-06-16 21:56 | MR ---
MRI CERVICAL SPINE: CLINICAL HISTORY: Cervicalgia. Ordered. TECHNIQUE: Multiplanar, multisequence imaging of the cervical spine is performed without IV contrast. COMPARISON: MRI cervical spine August 06, 2016. FINDINGS: Sagittal images of the cervical spine redemonstrate slightly expansile central T2 hyperinte nse round lesion superior C2 level measuring 7 mm craniocaudal dimension on sagittal image 6 is signi ficantly changed from prior. The cervical and upper thoracic spinal cord is otherwise normal in jasper claudia and signal. Vertebral alignment is straightened. There is grade 1 retrolisthesis of C5 on C6 red emonstrated The vertebral body heights are normal. Mild to moderate disc space narrowing C5-C6 level is redemonstrated. Small posterior disc herniation C5-C6 and C6-C7 level effacing the anterior thecal sac on sagittal images. The bone marrow signal intensity remains heterogeneous with Modic type II c hanges in the upper cervical spine redemonstrated. Axial images at C2-C3 level redemonstrates left paracentral disc protrusion minimally effacing the an terolateral thecal sac, bilateral neural foramina are patent, no significant change from prior. Axial images at C3-C4 and C4-C5 level remain within normal limits. Axial images at C5-C6 level shows spondylosis with broad-based posterior disc protrusion effacing the anterior thecal sac and causing mild right greater than left bilateral neural foraminal narrowing. S ome posterior marginal spurring is redemonstrated. No significant change from prior study. Axial images at C6-C7 level shows a right paracentral disc protrusion mildly effacing anterolateral t hecal sac, bilateral neural foramina are patent. No significant change from prior. Axial images at C7-T1 level are felt within normal limits. IMPRESSION: Stable ventral 7 mm round T2 hyperintense lesion craniocervical junction superior C2 leve l. No new lesions are seen. Straightening of cervical spine with spondylolisthesis and degenerative c hange C5-C6 level redemonstrated. No significant change from prior MRI.
== END | disposition home or self-care (01) ==
LOC: RADMRIMAIN 20:06
PROVIDERS: ATTEND Psychiatry & Neurology Neurology
DX: M43.12 Spondylolisthesis, cervical region (principal); M47.812 Spondylosis without myelopathy or radiculopathy, cervical region; G95.89 Other specified diseases of spinal cord; G93.9 Disorder of brain, unspecified
CPT/HCPCS: 70553; 72141; A9585

== ENCOUNTER → 2018-08-10 | Outpatient (CLI) | payer BC ==
[2018-08-10 10:58] LABS: Basophils # (A) 0.1 k/uL (0-0.2); Basophils % (A) 1 %; Eosinophils # (A) 0.1 k/uL (0-0.7); Eosinophils % (A) 2 %; HCT 41.8 % (34.0-46.0); HGB 13.4 gm/dL (11.4-16.0); Lymphocytes % (A) 42 %; MCH 29.3 pg (25.0-35.0); MCV 91.4 fL (80.0-100.0); Mean Platelet Volume 7.7; Monocytes # (A) 0.3 k/uL (0-1.0); Monocytes % (A) 5 %; Neutrophils # (A) 2.3 k/uL (1.3-7.7); Neutrophils % (A) 48 %; Platelet Count 197 k/uL (150-450); RBC 4.58 m/uL (3.80-5.40); RDW 13.5 % (11.5-15.5); WBC 4.7 k/uL (3.8-10.6)
[2018-08-10 13:05] LABS: Erythrocyte Sedimentation Rate 7 mm/hr (0-20)
[2018-08-10 16:34] LABS: Vitamin D 25 Hydroxy 31.1 ng/mL (30.0-100.0)
[2018-08-10 17:01] LABS: ALT 35 U/L (8-44); AST 30 U/L (13-35); Albumin/Globulin Ratio 2.44 (1.60-3.17); Alkaline Phosphatase 65 U/L (41-126); C Reactive Protein <0.4 mg/dL (0.0-0.8); Calcium 9.4 mg/dL (8.7-10.3); Carbon Dioxide 26.5 mmol/L (21.6-31.8); Chloride 110 mmol/L (96-109); Creatine Kinase 92 U/L (26-186); Globulin 1.8 g/dL (1.6-3.3); Glucose 101 mg/dL (70-110); Sodium 143 mmol/L (135-145); Total Bilirubin 0.4 mg/dL (0.3-1.2); Total Protein 6.2 g/dL (6.2-8.2)
== END ==
LOC: LABWHC1 09:45
PROVIDERS: ATTEND Nurse Practitioner Acute Care
DX: M35.3 Polymyalgia rheumatica (principal); E55.9 Vitamin D deficiency, unspecified; R53.83 Other fatigue
CPT/HCPCS: 36415; 80053; 82306; 82550; 82607; 84439; 84443; 84481; 85025; 85652; 86038; 86140

== ENCOUNTER → 2018-08-19 | Outpatient (CLI) | payer BC ==
--- NOTE | 2018-08-19 19:47 | MR ---
EXAMINATION TYPE: MR lumbar spine wo con DATE OF EXAM: 08/19/2018 COMPARISON: CT abdomen pelvis 06/01/2016 HISTORY: LBP, BLE radic x 6 mos, no trauma/surgery TECHNIQUE: Multiplanar, multisequence imaging of the lumbar spine is performed without IV contrast. FINDINGS: Sagittal images of the lumbar spine show vertebral body heights and alignment to remain sat isfactory. Multilevel disc desiccation with mild multilevel disc space narrowing. Mild multilevel ant erior spurring The conus medullaris is normal in position and signal ending mid L1 level. The bone marrow signal intensity is overall markedly heterogeneous with diffuse areas of low in T1 and T2 sign al suggesting possible myeloproliferative disorder, correlate clinically to exclude. Axial images at the T12-L1 level are within normal limits. Axial images at the L1-L2 level show mild broad disc bulge with central disc protrusion component mil dly effacing anterior thecal sac on axial image 23. Axial images at the L2-L3 level show mild/moderate broad-based posterior disc protrusion effacing ant erior thecal sac. There is mild facet degenerative changes and ligament flavum hypertrophy. Bilateral neural foramina are patent. Axial images at the L3-L4 level show mild to moderate facet degenerative changes and ligamentum flavu m hypertrophy with mild effacement of the posterior lateral thecal sac. There is mild broad disc bulg e mildly effacing anterior thecal sac. There is mild bilateral anterior inferior neural foraminal karla rowing. Axial images at L4-L5 level show moderate facet degenerative changes and ligament flavum hypertrophy. There is moderate broad disc bulge with left paracentral disc protrusion component effacing anterola teral thecal sac and lateral recess. There is moderate left greater than right bilateral inferior adriana ral foraminal narrowing. Axial images at the L5-S1 level show mild to moderate facet degenerative changes bilaterally. There i s central disc protrusion seen. Spinal canal is preserved. Bilateral neural foramina are patent. Incr eased signal posteriorly consistent with annular tear is noted. No suspicious incidental retroperitoneal findings are present. IMPRESSION: Multilevel degenerative changes in the lumbar spine as detailed above. Cannot exclude mye loproliferative disorder with markedly heterogeneous low T1 and T2 signal, correlate clinically to ex clude.
== END | disposition home or self-care (01) ==
LOC: RADMRIMAIN 19:01
PROVIDERS: ATTEND Nurse Practitioner Acute Care
DX: M48.061 Spinal stenosis, lumbar region without neurogenic claudication (principal); M51.26 Other intervertebral disc displacement, lumbar region; M47.816 Spondylosis without myelopathy or radiculopathy, lumbar region
CPT/HCPCS: 72148

== ENCOUNTER 2018-08-27 17:19 | Emergency (ER) | payer BC ==
[2018-08-27 17:25] VITALS: RESP 18; TEMP 98.3
[2018-08-27] MEDS ORDERED: SODIUM CHLORIDE 0.9% 1,000 ML IV STA (17:53)
[2018-08-27 18:06] LABS: Basophils # (A) 0.1 k/uL (0-0.2); Basophils % (A) 1 %; Eosinophils # (A) 0.2 k/uL (0-0.7); Eosinophils % (A) 3 %; Lymphocytes # (A) 2.9 k/uL (1.0-4.8); Lymphocytes % (A) 47 %; MCH 29.9 pg (25.0-35.0); MCHC 32.5 g/dL (31.0-37.0); MCV 92.1 fL (80.0-100.0); Mean Platelet Volume 7.2; Monocytes # (A) 0.4 k/uL (0-1.0); Monocytes % (A) 6 %; Neutrophils # (A) 2.5 k/uL (1.3-7.7); Neutrophils % (A) 41 %; Platelet Count 186 k/uL (150-450); RBC 4.67 m/uL (3.80-5.40); RDW 12.9 % (11.5-15.5); WBC 6.1 k/uL (3.8-10.6)
--- NOTE | 2018-08-27 18:06 | ED ---
General Adult HPI - General Chief complaint: Abdominal Pain Stated complaint: heart fluttering/pelvic & rib pain Time Seen by Provider: 08/27/18 17:35 Source: patient, RN notes reviewed, old records reviewed Mode of arrival: ambulatory Limitations: no limitations - History of Present Illness Initial comments: 53 y/o female pt presents to ED with multiple complaints. Patient reports that she has been having heart palpitations for approximately 2 days. Patient also reports that she has been having a pain in her right left anterior rib region that has been ongoing for approximately 2 months. Patient also complains of suprapubic pain for approximately 2 days. Patient states that it feels that she has to have a bowel movement. Patient denies any other areas of abdominal pain. Patient denies any chest pain or shortness breath. Patient denies any other complaints at this time. Systemic: Pt denies fatigue, myalgia, fever/chills, rash. Pt denies weakness, night sweats, weight loss. Neuro: Pt denies headache, visual disturbances, syncope or pre-syncope. HEENT: Pt denies ocular discharge or irritation, otalgia, rhinorrhea, pharyngitis or notable lymphadenopathy. Cardiopulmonary: Pt denies chest pain, SOB, heart palpitations, dyspnea on ex ertion. Abdominal/GI: Pt denies abdominal pain, n/v/d. : Pt denies dysuria, burning w/ urination, frequency/urgency. Denies new onset urinary or bowel incontinence. MSK: Pt denies myalgia, loss of strength or function in extremities. Neuro: Pt denies new onset weakness, paresthesias. - Related Data Home Medications Medication Instructions Recorded Confirmed Multivitamins, Thera [Multivitamin 1 tab PO DAILY 10/28/16 10/22/17 (formulary)] Topiramate [Topamax] 50 mg PO BID 03/29/17 10/28/17 Previous Rx's Medication Instructions Recorded Hydrocodone/Acetaminophen [Wister 1 tab PO Q6HR PRN 3 Days #12 tab 10/28/17 5-325] Allergies Allergy/AdvReac Type Severity Reaction Status Date / Time No Known Allergies Allergy Verified 08/27/18 17:26 Review of Systems ROS Statement: Those systems with pertinent positive or pertinent negative responses have been documented in the HPI. ROS Other: All systems not noted in ROS Statement are negative. 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, History of Any Multi-Drug Resistant Organisms: None Reported Past Surgical History: Appendectomy, Breast Surgery, Section, Cholecystectomy, Hysterectomy Additional Past Surgical History / Comment(s): c-sect x 3, breast surgery- lumpectomy Past Anesthesia/Blood Transfusion Reactions: No Reported Reaction Past Psychological History: No Psychological Hx Reported Smoking Status: Never smoker Past Alcohol Use History: None Reported Past Drug Use History: None Reported - Past Family History Father History Unknown: Yes Mother Family Medical History: Cancer Additional Family Medical History / Comment(s): uterine and lung cancer Brother(s) Family Medical History: No Reported History Daughter(s) Family Medical History: No Reported History Son(s) Family Medical History: No Reported History General Exam - General Exam Comments Initial Comments: Constitutional: NAD, AOX3, Pt has pleasant affect. HEENT: NC/AT, trachea midline, neck supple, no lymphadenopathy. Posterior pharynx non erythematous, without exudates. External ears appear normal, without discharge. Mucous membranes moist. Eyes PERRLA, EOM intact. There is no scleral icterus. No pallor noted. Cardiopulmonary: RRR, no murmurs, rubs or gallops, no JVD noted. Lungs CTAB in anterior and posterior jones. No peripheral edema. Abdominal exam: Abdomen soft and non-distended. Abdomen mildly tender to pa lpation in suprapubic region. No other areas of abdominal tenerness. No guarding no rigidity. Bowel sounds active in LLQ. No hepatosplenomegaly. No ecchymosis Neuro: CN II-XII grossly intact. No nuchal rigidity. MSK: No posterior calf tenderness bilaterally, homans sign negative bilaterally. Posterior tibialis and radial pulse +2 bilaterally. Sensation intact in upper and lower extremities. Full active ROM in upper and lower extremities, 5/5 stregnth. Limitations: no limitations Course Vital Signs 08/27/18 08/27/18 08/27/18 17:20 17:43 17:50 Temperature 98.3 F Pulse Rate 64 72 Respiratory 18 6 L Rate Blood Pressure 146/88 113/69 O2 Sat by Pulse 100 100 100 Oximetry 08/27/18 08/27/18 08/27/18 18:00 18:10 18:20 Temperature Pulse Rate 54 L 55 L Respiratory 15 17 Rate Blood Pressure 113/69 116/71 104/64 O2 Sat by Pulse 100 100 Oximetry 08/27/18 08/27/18 08/27/18 18:30 18:40 18:50 Temperature Pulse Rate 55 L 56 L 54 L Respiratory 15 18 18 Rate Blood Pressure 104/64 100/57 100/60 O2 Sat by Pulse 100 98 98 Oximetry 08/27/18 08/27/18 08/27/18 19:00 19:10 19:20 Temperature Pulse Rate 54 L 54 L Respiratory 18 18 Rate Blood Pressure 100/60 101/60 101/60 O2 Sat by Pulse 99 100 Oximetry 08/27/18 19:30 Temperature Pulse Rate 55 L Respiratory 18 Rate Blood Pressure 101/60 O2 Sat by Pulse 99 Oximetry Medical Decision Making - Medical Decision Making 53 y/o female pt presents to ED with multiple complaints. Patient reports that she has been having heart palpitations for approximately 2 days. Patient also reports that she has been having a pain in her right lower anterior rib region that has been ongoing for approximately 2 months. Patient also complains of suprapubic pain for approximately 2 days. Patient states that it feels that she has to have a bowel movement. Patient denies any other areas of abdominal pain. Patient denies any chest pain or shortness breath. Patient denies any other complaints at this time. Patient vital signs stable, afebrile. Physical exam displayed: Abdomen soft and non-distended. Abdomen mildly tender to palpation in suprapubic region. No other areas of abdominal tenerness. No guarding no rigidity. Laboratory investigations revealed nonpassive CBC. Coagulation studies within normal limits. D-dimer negative. CMP nonimpressive. Lactic acid 0.7. Troponin negative. BNP within normal limits. TSH within normal limits. Lipase within normal limits. UA negative. HCG negative. EKG not concerning for acute ischemia. Urine negative. CT abdomen and pelvis displayed haziness throughout the subcutaneous fat. Moderate stool burden. No acute i nflammatory process to explain symptoms. Chest x-ray revealed no acute process. These findings were explained patient length. Patient denies experiencing palpitations at this time. Patient has been experiencing chest pain or abdominal pain this time. Patient will be discharged to follow with primary care provider in 1-2 days. Patient will additionally follow-up with ux research associate tomorrow. Case discussed with Dr. Vegas. - Lab Data Result diagrams: 08/27/18 17:50 08/27/18 17:50 Lab Results 08/27/18 08/27/18 08/27/18 Range/Units 16:07 17:50 17:50 WBC 6.1 (3.8-10.6) k/uL RBC 4.67 (3.80-5.40) m/uL Hgb 14.0 (11.4-16.0) gm/dL Hct 43.0 (34.0-46.0) % MCV 92.1 (80.0-100.0) fL MCH 29.9 (25.0-35.0) pg MCHC 32.5 (31.0-37.0) g/dL RDW 12.9 (11.5-15.5) % Plt Count 186 (150-450) k/uL Neutrophils % 41 % Lymphocytes % 47 % Monocytes % 6 % Eosinophils % 3 % Basophils % 1 % Neutrophils # 2.5 (1.3-7.7) k/uL Lymphocytes # 2.9 (1.0-4.8) k/uL Monocytes # 0.4 (0-1.0) k/uL Eosinophils # 0.2 (0-0.7) k/uL Basophils # 0.1 (0-0.2) k/uL PT (9.0-12.0) sec INR (<1.2) APTT (22.0-30.0) sec D-Dimer (<0.60) mg/L FEU Sodium 141 (137-145) mmol/L Potassium 3.5 (3.5-5.1) mmol/L Chloride 108 H (98-107) mmol/L Carbon Dioxide 29 (22-30) mmol/L Anion Gap 4 mmol/L BUN 19 H (7-17) mg/dL Creatinine 0.78 (0.52-1.04) mg/dL Est GFR (CKD-EPI)AfAm >90 (>60 ml/min/1.73 sqM) Est GFR (CKD-EPI)NonAf 88 (>60 ml/min/1.73 sqM) Glucose 112 H (74-99) mg/dL Plasma Lactic Acid Neymar (0.7-2.0) mmol/L Calcium 9.3 (8.4-10.2) mg/dL Magnesium 2.0 (1.6-2.3) mg/dL Total Bilirubin 0.4 (0.2-1.3) mg/dL AST 30 (14-36) U/L ALT 35 (9-52) U/L Alkaline Phosphatase 83 (38-126) U/L Troponin I (0.000-0.034) ng/mL NT-Pro-B Natriuret Pep pg/mL Total Protein 6.7 (6.3-8.2) g/dL Albumin 4.2 (3.5-5.0) g/dL Lipase 117 (23-300) U/L TSH (0.465-4.680) mIU/L Urine Color Light Yellow Urine Appearance Cloudy H (Clear) Urine pH 7.5 (5.0-8.0) Ur Specific Lamont 1.007 (1.001-1.035) Urine Protein Negative (Negative) Urine Glucose (UA) Negative (Negative) Urine Ketones Negative (Negative) Urine Blood Negative (Negative) Urine Nitrite Negative (Negative) Urine Bilirubin Negative (Negative) Urine Urobilinogen <2.0 (<2.0) mg/dL Ur Leukocyte Esterase Negative (Negative) Urine WBC 2 (0-5) /hpf Ur Squamous Epith Cells 1 (0-4) /hpf Urine Bacteria Occasional H (None) /hpf 08/27/18 08/27/18 08/27/18 Range/Units 17:50 17:50 17:50 WBC (3.8-10.6) k/uL RBC (3.80-5.40) m/uL Hgb (11.4-16.0) gm/dL Hct (34.0-46.0) % MCV (80.0-100.0) fL MCH (25.0-35.0) pg MCHC (31.0-37.0) g/dL RDW (11.5-15.5) % Plt Count (150-450) k/uL Neutrophils % % Lymphocytes % % Monocytes % % Eosinophils % % Basophils % % Neutrophils # (1.3-7.7) k/uL Lymphocytes # (1.0-4.8) k/uL Monocytes # (0-1.0) k/uL Eosinophils # (0-0.7) k/uL Basophils # (0-0.2) k/uL PT 9.8 (9.0-12.0) sec INR 0.9 (<1.2) APTT 23.7 (22.0-30.0) sec D-Dimer (<0.60) mg/L FEU Sodium (137-145) mmol/L Potassium (3.5-5.1) mmol/L Chloride (98-107) mmol/L Carbon Dioxide (22-30) mmol/L Anion Gap mmol/L BUN (7-17) mg/dL Creatinine (0.52-1.04) mg/dL Est GFR (CKD-EPI)AfAm (>60 ml/min/1.73 sqM) Est GFR (CKD-EPI)NonAf (>60 ml/min/1.73 sqM) Glucose (74-99) mg/dL Plasma Lactic Acid Neymar 0.7 (0.7-2.0) mmol/L Calcium (8.4-10.2) mg/dL Magnesium (1.6-2.3) mg/dL Total Bilirubin (0.2-1.3) mg/dL AST (14-36) U/L ALT (9-52) U/L Alkaline Phosphatase (38-126) U/L Troponin I <0.012 (0.000-0.034) ng/mL NT-Pro-B Natriuret Pep pg/mL Total Protein (6.3-8.2) g/dL Albumin (3.5-5.0) g/dL Lipase (23-300) U/L TSH (0.465-4.680) mIU/L Urine Color Urine Appearance (Clear) Urine pH (5.0-8.0) Ur Specific Lamont (1.001-1.035) Urine Protein (Negative) Urine Glucose (UA) (Negative) Urine Ketones (Negative) Urine Blood (Negative) Urine Nitrite (Negative) Urine Bilirubin (Negative) Urine Urobilinogen (<2.0) mg/dL Ur Leukocyte Esterase (Negative) Urine WBC (0-5) /hpf Ur Squamous Epith Cells (0-4) /hpf Urine Bacteria (None) /hpf 08/27/18 08/27/18 08/27/18 Range/Units 17:50 17:50 17:50 WBC (3.8-10.6) k/uL RBC (3.80-5.40) m/uL Hgb (11.4-16.0) gm/dL Hct (34.0-46.0) % MCV (80.0-100.0) fL MCH (25.0-35.0) pg MCHC (31.0-37.0) g/dL RDW (11.5-15.5) % Plt Count (150-450) k/uL Neutrophils % % Lymphocytes % % Monocytes % % Eosinophils % % Basophils % % Neutrophils # (1.3-7.7) k/uL Lymphocytes # (1.0-4.8) k/uL Monocytes # (0-1.0) k/uL Eosinophils # (0-0.7) k/uL Basophils # (0-0.2) k/uL PT (9.0-12.0) sec INR (<1.2) APTT (22.0-30.0) sec D-Dimer <0.17 (<0.60) mg/L FEU Sodium (137-145) mmol/L Potassium (3.5-5.1) mmol/L Chloride (98-107) mmol/L Carbon Dioxide (22-30) mmol/L Anion Gap mmol/L BUN (7-17) mg/dL Creatinine (0.52-1.04) mg/dL Est GFR (CKD-EPI)AfAm (>60 ml/min/1.73 sqM) Est GFR (CKD-EPI)NonAf (>60 ml/min/1.73 sqM) Glucose (74-99) mg/dL Plasma Lactic Acid Neymar (0.7-2.0) mmol/L Calcium (8.4-10.2) mg/dL Magnesium (1.6-2.3) mg/dL Total Bilirubin (0.2-1.3) mg/dL AST (14-36) U/L ALT (9-52) U/L Alkaline Phosphatase (38-126) U/L Troponin I (0.000-0.034) ng/mL NT-Pro-B Natriuret Pep 90 pg/mL Total Protein (6.3-8.2) g/dL Albumin (3.5-5.0) g/dL Lipase (23-300) U/L TSH 1.390 (0.465-4.680) mIU/L Urine Color Urine Appearance (Clear) Urine pH (5.0-8.0) Ur Specific Lamont (1.001-1.035) Urine Protein (Negative) Urine Glucose (UA) (Negative) Urine Ketones (Negative) Urine Blood (Negative) Urine Nitrite (Negative) Urine Bilirubin (Negative) Urine Urobilinogen (<2.0) mg/dL Ur Leukocyte Esterase (Negative) Urine WBC (0-5) /hpf Ur Squamous Epith Cells (0-4) /hpf Urine Bacteria (None) /hpf - EKG Data -: EKG Interpreted by Me (and dr vegas) EKG Comments: Ventricular rate 58, NC interval 162, QRS 86, QT/QTc 434/446. Sinus bradycardia. Otherwise normal EKG. No concern for acute ischemia. Disposition Clinical Impression: Abdominal pain, Palpitations with regular cardiac rhythm Disposition: HOME SELF-CARE Condition: Stable Instructions (If sedation given, give patient instructions): Abdominal Pain (ED) Additional Instructions: Patient to adhere to previously discussed treatment plan and will take medication(s) as directed. Patient to follow up with PCP in 1-2 days. Patient to return to ED if symptoms do not improve. Follow-up with primary care provider tomorrow. Follow-up with ux research associate tomorrow. Return to ER if condition worsens in any way. Is patient prescribed a controlled substance at d/c from ED?: No Referrals: Sue Abreu MD [Primary Care Provider] - 1-2 days
[2018-08-27 18:10] LABS: ALT 35 U/L (9-52); AST 30 U/L (14-36); Albumin 4.2 g/dL (3.5-5.0); Alkaline Phosphatase 83 U/L (38-126); Anion Gap 4 mmol/L; Blood Urea Nitrogen 19 mg/dL (7-17); Calcium 9.3 mg/dL (8.4-10.2); Carbon Dioxide 29 mmol/L (22-30); Chloride 108 mmol/L (98-107); Glucose 112 mg/dL (74-99); Lipase 117 U/L (23-300); Potassium 3.5 mmol/L (3.5-5.1); Sodium 141 mmol/L (137-145); Total Bilirubin 0.4 mg/dL (0.2-1.3); Total Protein 6.7 g/dL (6.3-8.2)
[2018-08-27 18:15] LABS: INR 0.9 (<1.2); Partial Thromboplastin Time 23.7 sec (22.0-30.0); Prothrombin Time 9.8 sec (9.0-12.0)
[2018-08-27 18:22] LABS: Appearance,Urine Cloudy (Clear); Bacteria,Urine Occasional /hpf; Bilirubin,Urine Negative (Negative); Blood,Urine Negative (Negative); Color,Urine Light Yellow; Glucose,Urine (UA) Negative (Negative); Ketones,Urine Negative (Negative); Leukocyte Esterase,Urine Negative (Negative); Nitrite,Urine Negative (Negative); PH, Urine 7.5 (5.0-8.0); Protein,Urine Negative (Negative); Specific Gravity,Urine 1.007 (1.001-1.035); Squamous Epithelial Cell,Urine 1 /hpf (0-4); Urobilinogen,Urine <2.0 mg/dL (<2.0); WBC,Urine 2 /hpf (0-5)
[2018-08-27 19:32] VITALS: BP 101/60; PULSE 55
--- NOTE | 2018-08-27 19:33 | CT ---
EXAMINATION TYPE: CT abdomen pelvis w con DATE OF EXAM: 08/27/2018 COMPARISON: 09/29/2016 HISTORY: 53-year-old female with abdominal and rib pain. TECHNIQUE: Contiguous axial scanning of the abdomen and pelvis following administration of 100 ml Iso scott 300 IV contrast. Delayed images through the kidneys and coronal/sagittal reconstructions perform ed. CT DLP: 671.8 mGycm Automated exposure control for dose reduction was used. FINDINGS: Heart is normal size without pericardial effusion. Lung bases clear without pleural effusion. No focal liver lesion or biliary ductal dilatation. Portal venous system is patent. Cholecystectomy clips. Adrenal glands, kidneys, spleen, and pancreas appear within normal limits. Prominent ingested debris within the stomach. No dilated small bowel, free fluid, or free air. No mesenteric or retroperitoneal lymphadenopathy see n. There is moderate stool burden without pericolonic inflammatory change. Bladder partially distended. Pelvic phleboliths. Uterus not seen, likely surgically absent. There see ms to be a cyst/dominant follicle in each ovary measuring 2.3 cm on the left and 2.1 cm on the right. No abnormal fluid collection in the pelvis. Surgical clips along the left pelvic sidewall. Bones: No osseous destructive process. There seems to be mild generalized anasarca-type change with strandy density throughout the subcutane ous fat. IMPRESSION: 1. CORRELATING FOR POTENTIAL FLUID OVERLOAD STATE. THERE IS DIFFUSE HAZINESS THROUGHOUT THE SUBCUTANE OUS FAT SUGGESTING MILD ANASARCA. 2. MODERATE STOOL BURDEN. 3. NO ACUTE INFLAMMATORY PROCESS IDENTIFIED TO EXPLAIN PATIENT'S SYMPTOMS.
--- NOTE | 2018-08-27 19:35 | XR ---
EXAMINATION TYPE: XR chest 2V DATE OF EXAM: 08/27/2018 COMPARISON: 01/26/2018 HISTORY: 53-year-old female with pain TECHNIQUE: PA and lateral views FINDINGS: The heart is normal size. Aorta and pulmonary vasculature within normal limits. No consolidation or p leural effusion. IMPRESSION: No acute cardiopulmonary process.
== END 2018-08-27 21:54 | disposition home or self-care (01) ==
LOC: EC 17:19
DX: R10.30 Lower abdominal pain, unspecified (principal); R00.2 Palpitations; R00.1 Bradycardia, unspecified; R07.81 Pleurodynia; Z90.49 Acquired absence of other specified parts of digestive tract; Z90.89 Acquired absence of other organs; Z90.710 Acquired absence of both cervix and uterus
CPT/HCPCS: 36415; 93005; 85379; 83880; 80053; 84443; 83605; 83690; 83735; 84484; 85025; 85610; 85730; 81001; 71046; 74177; 99285; 96360; 96361 ×2; Q9967

== ENCOUNTER → 2018-09-02 | Outpatient (CLI) | payer BC ==
[2018-09-02 10:48] LABS: Basophils # (A) 0.1 k/uL (0-0.2); Basophils % (A) 1 %; Eosinophils # (A) 0.1 k/uL (0-0.7); Eosinophils % (A) 2 %; HGB 13.7 gm/dL (11.4-16.0); Lymphocytes % (A) 45 %; MCH 29.6 pg (25.0-35.0); MCHC 31.7 g/dL (31.0-37.0); MCV 93.2 fL (80.0-100.0); Mean Platelet Volume 7.6; Monocytes # (A) 0.2 k/uL (0-1.0); Monocytes % (A) 5 %; Neutrophils % (A) 45 %; Platelet Count 183 k/uL (150-450); RBC 4.62 m/uL (3.80-5.40); RDW 13.5 % (11.5-15.5); WBC 4.5 k/uL (3.8-10.6)
== END | disposition home or self-care (01) ==
LOC: LABWHC1 09:28
PROVIDERS: ATTEND Nurse Practitioner Acute Care
DX: G93.89 Other specified disorders of brain (principal)
CPT/HCPCS: 36415; 85025

== ENCOUNTER 2018-10-22 18:50 | Emergency (ER) | payer BC ==
[2018-10-22 18:55] VITALS: RESP 18
[2018-10-22] MEDS ORDERED: MORPHINE SULFATE 4 MG/ML SYRINGE IVP STA (19:09)
[2018-10-22] MEDS ORDERED: ONDANSETRON 4 MG/2 ML VIAL IVP STA (19:09)
[2018-10-22] MEDS ORDERED: PANTOPRAZOLE 40 MG/10 ML VIAL IVP STA (19:09)
--- NOTE | 2018-10-22 19:24 | ED ---
Chest Pain HPI - General Chief Complaint: Chest Pain Stated Complaint: Chest Pressure, Headache Time Seen by Provider: 10/22/18 18:58 Source: patient, RN notes reviewed, old records reviewed Mode of arrival: ambulatory Limitations: no limitations - History of Present Illness Initial Comments: This is a 33-year-old female the ER for evaluation. Patient is complaining of chest pain abdominal pain epigastric abdominal pain diffuse abdominal pain. Patient has no significant history of similar complaint. No shortness of breath. Symptoms started tonight. Patient does take Garfield at home for pain. Patient has history of cholecystectomy appendectomy and hysterectomy. MD Complaint: other (Abdominal pain) -: days(s) Onset: after eating Pain Location: epigastric Pain Radiation: none Severity: mild Severity scale (1-10): 3 Quality: aching Consistency: constant, intermittent Improves With: nothing Worsens With: nothing Anginal Symptoms: nausea Treatments Prior to Arrival: none - Related Data Home Medications Medication Instructions Recorded Confirmed Multivitamins, Thera [Multivitamin 1 tab PO DAILY 10/28/16 10/22/18 (formulary)] Topiramate [Topamax] 50 mg PO BID 03/29/17 10/22/18 Allergies Allergy/AdvReac Type Severity Reaction Status Date / Time No Known Allergies Allergy Verified 10/22/18 20:01 Review of Systems ROS Statement: Those systems with pertinent positive or pertinent negative responses have been documented in the HPI. ROS Other: All systems not noted in ROS Statement are negative. 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, History of Any Multi-Drug Resistant Organisms: None Reported Past Surgical History: Appendectomy, Breast Surgery, Section, Cholecystectomy, Hysterectomy Additional Past Surgical History / Comment(s): c-sect x 3, breast surgery- lumpectomy Past Anesthesia/Blood Transfusion Reactions: No Reported Reaction Past Psychological History: No Psychological Hx Reported Smoking Status: Never smoker Past Alcohol Use History: Occasional Past Drug Use History: None Reported - Past Family History Father History Unknown: Yes Mother Family Medical History: Cancer Additional Family Medical History / Comment(s): uterine and lung cancer Brother(s) Family Medical History: No Reported History Daughter(s) Family Medical History: No Reported History Son(s) Family Medical History: No Reported History General Exam Limitations: no limitations General appearance: alert, in no apparent distress Head exam: Present: atraumatic, normocephalic, normal inspection Eye exam: Present: normal appearance, PERRL, EOMI. Absent: scleral icterus, conjunctival injection, periorbital swelling ENT exam: Present: normal exam, mucous membranes moist Neck exam: Present: normal inspection. Absent: tenderness, meningismus, lymphadenopathy Respiratory exam: Present: normal lung sounds bilaterally. Absent: respiratory distress, wheezes, rales, rhonchi, stridor Cardiovascular Exam: Present: regular rate, normal rhythm, normal heart sounds. Absent: systolic murmur, diastolic murmur, rubs, gallop, clicks GI/Abdominal exam: Present: soft, normal bowel sounds. Absent: distended, tenderness, guarding, rebound, rigid Extremities exam: Present: normal inspection, full ROM, normal capillary refill. Absent: tenderness, pedal edema, joint swelling, calf tenderness Back exam: Present: normal inspection Neurological exam: Present: alert, oriented X3, CN II-XII intact Psychiatric exam: Present: normal affect, normal mood Skin exam: Present: warm, dry, intact, normal color. Absent: rash Course Vital Signs 10/22/18 10/22/18 18:51 21:02 Temperature 98.6 F 98.1 F Pulse Rate 65 61 Respiratory 18 18 Rate Blood Pressure 153/89 147/89 O2 Sat by Pulse 98 100 Oximetry - Reevaluation(s) Reevaluation #1: Clinical record is reviewed Patient has adequate pain control Studies CTA chest CT abdomen pelvis negative for acute disease significant stool burden Chest Pain MDM - MDM 53 female the ER for evaluation of abdominal pain. Patient's found to have significant constipation will be given bowel regimen and discharged home Disposition Clinical Impression: Abdominal pain, Constipation Disposition: HOME SELF-CARE Condition: Good Instructions (If sedation given, give patient instructions): Constipation (ED) Is patient prescribed a controlled substance at d/c from ED?: No Referrals: Sue Abreu MD [Primary Care Provider] - 1-2 days
--- NOTE | 2018-10-22 19:57 | XR ---
EXAMINATION TYPE: XR chest 2V DATE OF EXAM: 10/22/2018 COMPARISON: 08/27/2018 HISTORY: Chest pain TECHNIQUE: Frontal and lateral views of the chest are obtained. FINDINGS: Heart and mediastinum are normal. Lungs are clear. Diaphragm is normal. Bony thorax appear s normal. There are chest leads. IMPRESSION: Normal chest. No change.
[2018-10-22 19:59] LABS: Basophils # (A) 0.1 k/uL (0-0.2); Basophils % (A) 1 %; Eosinophils # (A) 0.2 k/uL (0-0.7); Eosinophils % (A) 2 %; HCT 44.3 % (34.0-46.0); HGB 14.4 gm/dL (11.4-16.0); Lymphocytes # (A) 1.8 k/uL (1.0-4.8); Lymphocytes % (A) 21 %; MCH 30.1 pg (25.0-35.0); MCHC 32.5 g/dL (31.0-37.0); MCV 92.4 fL (80.0-100.0); Mean Platelet Volume 7.3; Monocytes # (A) 0.5 k/uL (0-1.0); Monocytes % (A) 5 %; Neutrophils % (A) 70 %; Platelet Count 189 k/uL (150-450); RBC 4.79 m/uL (3.80-5.40); RDW 12.8 % (11.5-15.5); WBC 8.6 k/uL (3.8-10.6)
--- NOTE | 2018-10-22 20:01 | CT ---
EXAMINATION TYPE: CT angio chest DATE OF EXAM: 10/22/2018 7:55 PM COMPARISON: 10/08/2017 HISTORY: chest pain and pressure CT DLP: 199.9 mGycm Automated exposure control for dose reduction was used. CONTRAST: CTA scan of the thorax is performed with IV Contrast, patient injected with 100 mL of Isovue 370, pul monary embolism protocol. . There are 3-D post processed images. FINDINGS: The lungs are clear of infiltrate. There is no evidence of a pulmonary mass. There is no pleural effu kenneth. There is no pericardial effusion. Heart size is normal. There are no hilar masses. There is no mediastinal adenopathy. Thoracic aorta is intact. There is normal contrast opacification of the pulmonary arteries. I see no filling defect. The bony t horax is intact. Thoracic spine is intact. IMPRESSION: NO EVIDENCE OF PULMONARY EMBOLISM. NO ADVERSE CHANGE COMPARED TO OLD EXAM.
--- NOTE | 2018-10-22 20:04 | CT ---
EXAMINATION TYPE: CT abdomen pelvis w con DATE OF EXAM: 10/22/2018 COMPARISON: 08/27/2018 HISTORY: abdominal pain CT DLP: 412.3 mGycm Automated exposure control for dose reduction was used. TECHNIQUE: Helical acquisition of images was performed from the lung bases through the pelvis. CONTRAST: Performed without Oral Contrast and with IV Contrast, patient injected with 100 mL of Isovue 370. FINDINGS: Lung bases are clear. There is no pleural effusion. Heart size is normal. There are clips from cholecystectomy. Liver spleen stomach appear normal. There is no evidence of lora creatic mass. There are clips from cholecystectomy. There is no adrenal mass. Bile ducts are not dilated. Kidneys show satisfactory contrast opacificatio n. There is no hydronephrosis. Ureters are not dilated. There is no retroperitoneal adenopathy. Bladder distends smoothly. There is no inguinal hernia. There is tiny amount of fluid in the pelvis. There is apparent hysterectomy. There is no evidence of a pelvic mass. There are some fluid-filled di stended loops of small bowel in the abdomen. There is no free air. There is no mesenteric edema. Ther e is no ascites. There are some spondylotic changes in the lumbar spine. Bony pelvis is intact. I see no bony destructive process. IMPRESSION: THERE ARE SOME FLUID-FILLED DISTENDED SMALL BOWEL LOOPS IN THE ABDOMEN CONSISTENT WITH ILEUS. NO FREE AIR. MINIMAL FREE FLUID IN THE PELVIS. ABNORMAL FINDINGS ARE A CHANGE COMPARED TO OLD EXAM.
[2018-10-22 20:12] LABS: ALT 26 U/L (9-52); AST 24 U/L (14-36); African American GFR (CKD) >90 (>60 ml/min/1.73 sqM); Albumin 4.3 g/dL (3.5-5.0); Alkaline Phosphatase 75 U/L (38-126); Anion Gap 6 mmol/L; Blood Urea Nitrogen 22 mg/dL (7-17); Calcium 9.5 mg/dL (8.4-10.2); Carbon Dioxide 28 mmol/L (22-30); Chloride 110 mmol/L (98-107); Creatine Kinase 64 U/L (30-135); Glucose 132 mg/dL (74-99); Lipase 97 U/L (23-300); Magnesium 2.1 mg/dL (1.6-2.3); Potassium 4.5 mmol/L (3.5-5.1); Sodium 144 mmol/L (137-145); Total Bilirubin 0.4 mg/dL (0.2-1.3); Total Protein 6.9 g/dL (6.3-8.2)
[2018-10-22 20:16] LABS: D-Dimer 0.36 mg/L FEU (<0.60); INR 0.9 (<1.2); Partial Thromboplastin Time 22.4 sec (22.0-30.0)
[2018-10-22] MEDS ORDERED: GLYCERIN ADULT SUPPOSITORY 1 EACH RECTAL STA (20:25)
[2018-10-22] MEDS ORDERED: MAGNESIUM CITRATE 296 ML BOTTLE PO ONE (20:25)
[2018-10-22] MEDS ORDERED: SENNOSIDES-DOCUSATE SODIUM 1 EACH TAB PO STA (20:25)
[2018-10-22 21:04] VITALS: BP 147/89; PULSE 61; TEMP 98.1
== END 2018-10-22 21:05 | disposition home or self-care (01) ==
LOC: EC 18:50
DX: K59.00 Constipation, unspecified (principal); R07.9 Chest pain, unspecified; D33.1 Benign neoplasm of brain, infratentorial; Z79.899 Other long term (current) drug therapy; Z90.49 Acquired absence of other specified parts of digestive tract; Z90.710 Acquired absence of both cervix and uterus
CPT/HCPCS: 36415; 93005; 85379; 83880; 80053; 82550; 83690; 83735; 84484; 85025; 85610; 85730; 71046; 71275; 74177; 99285; 96374; 96375 ×2; J2270; J2405; C9113; Q9967

== ENCOUNTER → 2018-11-18 | Outpatient (CLI) | payer BC ==
[2018-11-18 10:07] LABS: Basophils # (A) 0.1 k/uL (0-0.2); Basophils % (A) 1 %; Eosinophils # (A) 0.1 k/uL (0-0.7); Eosinophils % (A) 3 %; HCT 45.4 % (34.0-46.0); HGB 14.6 gm/dL (11.4-16.0); Lymphocytes # (A) 2.4 k/uL (1.0-4.8); Lymphocytes % (A) 48 %; MCH 30.1 pg (25.0-35.0); MCHC 32.1 g/dL (31.0-37.0); MCV 93.8 fL (80.0-100.0); Mean Platelet Volume 7.3; Monocytes # (A) 0.3 k/uL (0-1.0); Monocytes % (A) 5 %; Neutrophils # (A) 2.1 k/uL (1.3-7.7); Neutrophils % (A) 42 %; Platelet Count 151 k/uL (150-450); RBC 4.85 m/uL (3.80-5.40); RDW 12.6 % (11.5-15.5)
[2018-11-18 18:42] LABS: Vitamin D 25 Hydroxy 33.7 ng/mL (30.0-100.0)
[2018-11-18 18:48] LABS: African American GFR (CKD) 98.2 (60.0-200.0); Albumin 4.5 g/dL (3.80-4.90); Albumin/Globulin Ratio 2.5 (1.60-3.17); BUN/Creat Ratio 12.5 Ratio (12.00-20.00); Calcium 9.9 mg/dL (8.7-10.3); Globulin 1.8 g/dL (1.6-3.3); Potassium 3.8 mmol/L (3.5-5.5); Total Bilirubin 0.5 mg/dL (0.2-1.2); Total Protein 6.3 g/dL (6.2-8.2)
== END | disposition home or self-care (01) ==
LOC: LABWHC1 09:41
PROVIDERS: ATTEND Nurse Practitioner Acute Care
DX: E55.9 Vitamin D deficiency, unspecified (principal); R53.83 Other fatigue; R42 Dizziness and giddiness
CPT/HCPCS: 36415; 80053; 82306; 82607; 85025

== ENCOUNTER → 2018-11-29 | Outpatient (CLI) | payer BC ==
--- NOTE | 2018-11-30 11:14 | MM ---
Reason for exam: follow-up at short interval from prior study. Last mammogram was performed 7 months ago. History: Patient has history of high-risk lesion on a previous biopsy at age 52. Benign MG pre op needle loc RT of the right breast, October 28, 2017. High risk MG stereo VAD BX RT of the right breast, October 07, 2017. Benign US biopsy breast VAD RT of the right breast, October 07, 2017. Took hormonal contraceptives for 6 months. Physical Findings: Nurse did not find any significant physical abnormalities on exam. MG Diagnostic Mammo w CAD KAI Bilateral CC and MLO view(s) were taken. Spot compression CC view(s) were taken of the right breast. Prior study comparison: May 05, 2018, bilateral MG diagnostic mammo w CAD KAI. September 23, 2017, bilateral MG 3d diag mammo w/cad KAI. The breast tissue is heterogeneously dense. This may lower the sensitivity of mammography. Benign appearing bilateral calcifications. Right lateral posterior depth asymmetry resolves on spot compression view. These results were verbally communicated with the patient and result sheet given to the patient on 11/29/18. ASSESSMENT: Benign, BI-RAD 2 RECOMMENDATION: Routine screening mammogram of both breasts in 1 year.
--- NOTE | 2018-11-30 11:17 | USB ---
Reason for exam: follow-up at short interval from prior study. History: Patient has history of high-risk lesion on a previous biopsy at age 52. Benign MG pre op needle loc RT of the right breast, October 28, 2017. High risk MG stereo VAD BX RT of the right breast, October 07, 2017. Benign US biopsy breast VAD RT of the right breast, October 07, 2017. Took hormonal contraceptives for 6 months. US Breast BILAT Right complete breast ultrasound includes all four quadrants, the retroareolar region and axilla. Finding demonstrates a 0.5 x 0.4 x 0.6cm oval, cystic cluster at 1 o'clock, previously measured 0.6 x 0.5 x 0.7cm previously seen at 11 o'clock, mobile breast noted, a 0.4 x 0.2 x 0.6cm oval, cystic lesion at 6 o'clock, previously measured 0.5 x 0.2 x 0.4cm and a 1.4 x 0.4 x 1.1cm oval, cystic lesion at 8 o'clock, questionable lobe versus lesion, fibroadenoma versus lobule, 6 month follow up. Left complete breast ultrasound includes all four quadrants, the retroareolar region and axilla. Finding demonstrates a 0.6 x 0.3 x 0.7cm oval, solid lesion at 11 o'clock, previously measured 0.7 x 0.3 x 0.6cm, benign. These results were verbally communicated with the patient and result sheet given to the patient on 11/29/18. ASSESSMENT: Probably benign, BI-RAD 3 RECOMMENDATION: Ultrasound of the right breast in 6 months.
== END | disposition home or self-care (01) ==
LOC: RADMAMWWP 13:25
PROVIDERS: ATTEND Internal Medicine
DX: N63.10 Unspecified lump in the right breast, unspecified quadrant (principal); N63.20 Unspecified lump in the left breast, unspecified quadrant; R92.8 Other abnormal and inconclusive findings on diagnostic imaging of breast; Z85.3 Personal history of malignant neoplasm of breast
CPT/HCPCS: 77066

== ENCOUNTER 2019-05-08 09:19 | Observation (INO) | payer BC ==
[2019-05-08] MEDS ORDERED: SODIUM CHLORIDE 0.9% 500 ML 500 ML IV STA (09:51)
[2019-05-08] MEDS ORDERED: NITROGLYCERIN OINT 1 INCH/GM PACKET TOPICAL STA (09:51)
--- NOTE | 2019-05-08 09:57 | ED ---
General Adult HPI - General Source: patient, RN notes reviewed Mode of arrival: wheelchair Limitations: no limitations <Rayo Garcia - Last Filed: 05/08/19 11:15> <Anisa Bolden - Last Filed: 05/10/19 22:16> - General Chief complaint: Chest Pain Stated complaint: Chest pain Time Seen by Provider: 05/08/19 09:32 - History of Present Illness Initial comments: 53-year-old female with a past mental history of bradycardia, brainstem mass, precancerous cells, lumpectomy, cholecystectomy, appendectomy, hysterectomy presents to the emergency department for chest pain. Patient states that this chest pain started today when she woke up around 5 AM and it has been continuing for the past 4.5 hours. Describes the pain as an achy pain. Denies any associated shortness of breath or diaphoresis. Does admit to mild nausea, denies vomiting. Denies any radiating pain. Patient denies any smoking history. Denies history of hypertension or hypercholesterolemia. States she follows with primary care for bradycardia rather than cardiology.Patient has no other complaints at this time including shortness of breath, abdominal pain, vomiting, headache, or visual changes. (Rayo Garcia) - Related Data Home Medications Medication Instructions Recorded Confirmed Multivitamins, Thera [Multivitamin 1 tab PO DAILY 10/28/16 05/08/19 (formulary)] Topiramate [Topamax] 50 mg PO BID 03/29/17 05/08/19 L.acidoph,Paracasei, B.lactis 1 cap PO DAILY 05/08/19 05/08/19 [Probiotic] Allergies Allergy/AdvReac Type Severity Reaction Status Date / Time No Known Allergies Allergy Verified 05/08/19 11:20 Review of Systems ROS Other: All systems not noted in ROS Statement are negative. <Rayo Garcia - Last Filed: 05/08/19 11:15> ROS Other: All systems not noted in ROS Statement are negative. <Anisa Bolden - Last Filed: 05/10/19 22:16> ROS Statement: Those systems with pertinent positive or pertinent negative responses have been documented in the HPI. 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, History of Any Multi-Drug Resistant Organisms: None Reported Past Surgical History: Appendectomy, Breast Surgery, Section, Cholecystectomy, Hysterectomy Additional Past Surgical History / Comment(s): c-sect x 3, breast surgery- lumpectomy Past Anesthesia/Blood Transfusion Reactions: No Reported Reaction Past Psychological History: No Psychological Hx Reported Smoking Status: Never smoker Past Alcohol Use History: Occasional Past Drug Use History: None Reported - Past Family History Father History Unknown: Yes Mother Family Medical History: Cancer Additional Family Medical History / Comment(s): uterine and lung cancer Brother(s) Family Medical History: No Reported History Daughter(s) Family Medical History: No Reported History Son(s) Family Medical History: No Reported History <Rayo Garcia P - Last Filed: 05/08/19 11:15> General Exam Limitations: no limitations General appearance: alert, in no apparent distress Head exam: Present: atraumatic, normocephalic, normal inspection Eye exam: Present: normal appearance, PERRL, EOMI. Absent: scleral icterus, conjunctival injection, periorbital swelling ENT exam: Present: normal exam, mucous membranes moist Neck exam: Present: normal inspection, full ROM. Absent: tenderness, m eningismus, lymphadenopathy Respiratory exam: Present: normal lung sounds bilaterally. Absent: respiratory distress, wheezes, rales, rhonchi, stridor Cardiovascular Exam: Present: regular rate, normal rhythm, normal heart sounds. Absent: systolic murmur, diastolic murmur, rubs, gallop, clicks GI/Abdominal exam: Present: soft, normal bowel sounds. Absent: distended, tenderness, guarding, rebound, rigid Neurological exam: Present: alert, oriented X3 Psychiatric exam: Present: normal affect, normal mood <Rayo Garcia P - Last Filed: 05/08/19 11:15> Course Vital Signs 05/08/19 05/08/19 05/08/19 09:23 10:00 10:30 Temperature 97.9 F Pulse Rate 75 65 56 L Respiratory 18 17 16 Rate Blood Pressure 126/76 122/79 128/75 O2 Sat by Pulse 100 100 100 Oximetry 05/08/19 05/08/19 05/08/19 11:00 11:30 12:00 Temperature Pulse Rate 64 57 L 58 L Respiratory 17 19 16 Rate Blood Pressure 118/76 118/68 105/68 O2 Sat by Pulse 100 100 100 Oximetry 05/08/19 12:30 Temperature Pulse Rate 59 L Respiratory 19 Rate Blood Pressure 102/69 O2 Sat by Pulse 100 Oximetry Medical Decision Making - Lab Data Result diagrams: 05/08/19 09:38 05/08/19 09:38 <Ryao Garcia - Last Filed: 05/08/19 11:15> - Lab Data Result diagrams: 05/08/19 09:38 05/08/19 09:38 <Anisa Bolden - Last Filed: 05/10/19 22:16> - Medical Decision Making 53-year-old female presents for chest pain. This is in the anterior part of her chest. Denies alleviating or aggravating factors. Does admit to nausea. CBC unremarkable. CMP did show some evidence of dehydration. Minimal transaminitis. History of cholecystectomy. No fevers at home. Chest x-ray sh owed no acute cardiopulmonary process. However correlate for pulmonary artery hypertension. Patient was given Nitropaste and did have some improvement in pain. Patient had a stress echo which was normal in 2017. Stress test was inconclusive. Patient does not believe that she has had further evaluation since that time I do not have records of this. Discussed case with Dr. Bolden, we recommended admission to the hospital for further evaluation. (Rayo Garcia) I was available for consultation in the emergency department. The history and physical exam were done by the midlevel provider. I was consulted for this patients care. I reviewed the case with the midlevel provider and based on their presentation of the patient, I agree with the assessment, medical decision making and plan of care as documented. Dr. Aquino accepted admission. Chart was dictated using [employer] dictation software. Attempts were made to correct any dictation errors however some typographical errors may persist. (Anisa Bolden) - Lab Data Lab Results 05/08/19 05/08/19 05/08/19 Range/Units 09:38 09:38 09:38 WBC 6.2 (3.8-10.6) k/uL RBC 4.71 (3.80-5.40) m/uL Hgb 14.3 (11.4-16.0) gm/dL Hct 45.0 (34.0-46.0) % MCV 95.4 (80.0-100.0) fL MCH 30.4 (25.0-35.0) pg MCHC 31.8 (31.0-37.0) g/dL RDW 12.8 (11.5-15.5) % Plt Count 174 (150-450) k/uL Neutrophils % 67 % Lymphocytes % 24 % Monocytes % 5 % Eosinophils % 2 % Basophils % 1 % Neutrophils # 4.2 (1.3-7.7) k/uL Lymphocytes # 1.5 (1.0-4.8) k/uL Monocytes # 0.3 (0-1.0) k/uL Eosinophils # 0.1 (0-0.7) k/uL Basophils # 0.1 (0-0.2) k/uL PT 9.5 (9.0-12.0) sec INR 0.9 (<1.2) APTT 21.4 L (22.0-30.0) sec Sodium 142 (137-145) mmol/L Potassium 3.6 (3.5-5.1) mmol/L Chloride 114 H (98-107) mmol/L Carbon Dioxide 23 (22-30) mmol/L Anion Gap 5 mmol/L BUN 22 H (7-17) mg/dL Creatinine 0.71 (0.52-1.04) mg/dL Est GFR (CKD-EPI)AfAm >90 (>60 ml/min/1.73 sqM) Est GFR (CKD-EPI)NonAf >90 (>60 ml/min/1.73 sqM) Glucose 106 H (74-99) mg/dL Calcium 9.2 (8.4-10.2) mg/dL Magnesium 1.9 (1.6-2.3) mg/dL Total Bilirubin 0.3 (0.2-1.3) mg/dL AST 47 H (14-36) U/L ALT 50 H (4-34) U/L Alkaline Phosphatase 82 (38-126) U/L Troponin I (0.000-0.034) ng/mL NT-Pro-B Natriuret Pep pg/mL Total Protein 5.7 L (6.3-8.2) g/dL Albumin 3.5 (3.5-5.0) g/dL Amylase 50 (30-110) U/L Lipase 130 (23-300) U/L 05/08/19 05/08/19 Range/Units 09:38 09:38 WBC (3.8-10.6) k/uL RBC (3.80-5.40) m/uL Hgb (11.4-16.0) gm/dL Hct (34.0-46.0) % MCV (80.0-100.0) fL MCH (25.0-35.0) pg MCHC (31.0-37.0) g/dL RDW (11.5-15.5) % Plt Count (150-450) k/uL Neutrophils % % Lymphocytes % % Monocytes % % Eosinophils % % Basophils % % Neutrophils # (1.3-7.7) k/uL Lymphocytes # (1.0-4.8) k/uL Monocytes # (0-1.0) k/uL Eosinophils # (0-0.7) k/uL Basophils # (0-0.2) k/uL PT (9.0-12.0) sec INR (<1.2) APTT (22.0-30.0) sec Sodium (137-145) mmol/L Potassium (3.5-5.1) mmol/L Chloride (98-107) mmol/L Carbon Dioxide (22-30) mmol/L Anion Gap mmol/L BUN (7-17) mg/dL Creatinine (0.52-1.04) mg/dL Est GFR (CKD-EPI)AfAm (>60 ml/min/1.73 sqM) Est GFR (CKD-EPI)NonAf (>60 ml/min/1.73 sqM) Glucose (74-99) mg/dL Calcium (8.4-10.2) mg/dL Magnesium (1.6-2.3) mg/dL Total Bilirubin (0.2-1.3) mg/dL AST (14-36) U/L ALT (4-34) U/L Alkaline Phosphatase (38-126) U/L Troponin I <0.012 (0.000-0.034) ng/mL NT-Pro-B Natriuret Pep 445 pg/mL Total Protein (6.3-8.2) g/dL Albumin (3.5-5.0) g/dL Amylase (30-110) U/L Lipase (23-300) U/L Disposition Is patient prescribed a controlled substance at d/c from ED?: No Time of Disposition: 11:15 <Rayo Garcia - Last Filed: 05/08/19 11:15> <Anisa Bolden - Last Filed: 05/10/19 22:16> Clinical Impression: Chest pain Disposition: ADMITTED IP TO THIS HOSP Condition: Fair
[2019-05-08 10:03] LABS: Basophils # (A) 0.1 k/uL (0-0.2); Basophils % (A) 1 %; Eosinophils # (A) 0.1 k/uL (0-0.7); Eosinophils % (A) 2 %; HGB 14.3 gm/dL (11.4-16.0); Lymphocytes # (A) 1.5 k/uL (1.0-4.8); Lymphocytes % (A) 24 %; MCH 30.4 pg (25.0-35.0); MCHC 31.8 g/dL (31.0-37.0); MCV 95.4 fL (80.0-100.0); Monocytes # (A) 0.3 k/uL (0-1.0); Monocytes % (A) 5 %; Neutrophils # (A) 4.2 k/uL (1.3-7.7); Neutrophils % (A) 67 %; Platelet Count 174 k/uL (150-450); RBC 4.71 m/uL (3.80-5.40); RDW 12.8 % (11.5-15.5); WBC 6.2 k/uL (3.8-10.6)
[2019-05-08 10:13] LABS: ALT 50 U/L (4-34); AST 47 U/L (14-36); African American GFR (CKD) >90 (>60 ml/min/1.73 sqM); Albumin 3.5 g/dL (3.5-5.0); Alkaline Phosphatase 82 U/L (38-126); Amylase 50 U/L (30-110); Anion Gap 5 mmol/L; Blood Urea Nitrogen 22 mg/dL (7-17); Calcium 9.2 mg/dL (8.4-10.2); Carbon Dioxide 23 mmol/L (22-30); Chloride 114 mmol/L (98-107); Glucose 106 mg/dL (74-99); Magnesium 1.9 mg/dL (1.6-2.3); Non-African American GFR(CKD) >90 (>60 ml/min/1.73 sqM); Potassium 3.6 mmol/L (3.5-5.1); Sodium 142 mmol/L (137-145); Total Bilirubin 0.3 mg/dL (0.2-1.3); Total Protein 5.7 g/dL (6.3-8.2)
[2019-05-08 10:20] LABS: INR 0.9 (<1.2); Prothrombin Time 9.5 sec (9.0-12.0)
[2019-05-08 10:24] LABS: Partial Thromboplastin Time 21.4 sec (22.0-30.0)
--- NOTE | 2019-05-08 10:31 | XR ---
EXAMINATION TYPE: XR chest 2V DATE OF EXAM: 05/08/2019 COMPARISON: Prior chest x-ray 10/22/2018 HISTORY: Chest pain TECHNIQUE: Frontal and lateral views of the chest are obtained. FINDINGS: There is no focal air space opacity, pleural effusion, or pneumothorax seen. The cardiac silhouette size is within normal limits. The osseous structures are intact. There are overlying car diac leads. Surgical clips present right upper quadrant. The pulmonary artery is prominent. IMPRESSION: No acute cardiopulmonary process. Correlate for pulmonary artery hypertension.
[2019-05-08] MEDS ORDERED: NITROGLYCERIN SL TABS 0.4 MG TAB SUBLINGUAL PRN (11:16)
[2019-05-08] MEDS ORDERED: ASPIRIN 81 MG PO STA (11:16)
[2019-05-08 13:43] VITALS: RESP 16
[2019-05-08] MEDS ORDERED: traMADol 50 MG TAB PO STA (14:32)
[2019-05-08 15:15] VITALS: BP 104/59; PULSE 63; TEMP 98.2
--- NOTE | 2019-05-08 16:39 | US ---
EXAMINATION TYPE: US abdomen limited DATE OF EXAM: 05/08/2019 COMPARISON: CT 2018, US 2014 CLINICAL HISTORY: Pain/ elevated ALT/AST. RUQ pain and nausea x 2 days, history of cholecystectomy EXAM MEASUREMENTS: Liver Length: 15.1 cm CBD: 0.3 cm Right Kidney: 10.8 x 4.1 x 4.8 cm Pancreas: visualized portions wnl, limited by overlying midline bowel gas Liver: wnl Gallbladder: surgically absent Evidence for sonographic Rodriguez's sign: no CBD: visualized portion wnl, limited by overlying bowel gas Right Kidney: wnl There is no ascites evident. IMPRESSION: Postcholecystectomy. Limited exam.
--- NOTE | 2019-05-08 20:27 | P.HPIM ---
History of Present Illness H&P Date: 05/08/19 Chief Complaint: Chest pain Patient is a 53-year-old female with a known history of benign brain stem tumor, history of bradycardia, right breast hyperplasia with lumpectomy, palpitation, diverticular disease came to ER with the complaints of chest pain when she woke up today morning and has been on and off dull aching pain since then. Pain started around 5 AM this morning. Denied any radiation of the pain. Mainly the pain is lower anterior chest. No associated shortness of breath. Patient does have nausea. Dizziness as well. Plan patient says that she's been having cold- like symptoms last few days but felt okay today. Patient says that she felt upper abdomen on Wednesday and pain across the lower chest on Wednesday. Patient developed chest pain today which made her to come to ER. EKG showed normal sinus rhythm Chest x-ray showed no acute cardiopulmonary process correlate for pulmonary hypertension BNP 445 Troponin 2 negative AST 47 ALT 50 Review of Systems Constitutional: Patient denies any fever or chills . No generalized weakness or weight loss. Abdomen: Patient does have nausea and upper abdominal pain. No vomiting. No diarrhea.. Cardiovascular: Patient denies any chest pain or short of breath no palpitations. Respiratory: patient denied any cough is from production. No shortness of breath Neurologic: Patient denied any numbness or tingling headache. Musculoskeletal: Patient denies any complaints of joint swelling or deformity. Skin: Negative Psychiatric: Negative Endocrine: No heat or cold intolerance. No recent weight gain. Genitourinary: No dysuria or hematuria. All other 14 point ROS negative except the above Past Medical History Past Medical History: Chest Pain / Angina Additional Past Medical History / Comment(s): Benign brain stem tumor, bradycardia, R breast pre-cancer (hyperplasia) with lumpectomy, palpitations, constipation, diverticular disease, UTI in past, ear infections in past mostly in R ear. History of Any Multi-Drug Resistant Organisms: None Reported Past Surgical History: Appendectomy, Breast Surgery, Section, Cholecystectomy, Hysterectomy Additional Past Surgical History / Comment(s): x 3, R breast biopsies, R breast lumpectomy, colonoscopy Past Anesthesia/Blood Transfusion Reactions: No Reported Reaction Past Psychological History: No Psychological Hx Reported Additional Psychological History / Comment(s): Pt resides with her spouse. She is independent. Smoking Status: Never smoker Past Alcohol Use History: Occasional Past Drug Use History: None Reported - Past Family History Father History Unknown: Yes Family Medical History: Unable to Obtain Additional Family Medical History / Comment(s): Father in a MVA when pt was little. Mother Family Medical History: Cancer Additional Family Medical History / Comment(s): uterine and lung cancer Brother(s) Family Medical History: No Reported History Daughter(s) Family Medical History: No Reported History Son(s) Family Medical History: No Reported History Medications and Allergies Home Medications Medication Instructions Recorded Confirmed Type RX: Multivitamins, Thera 1 tab PO DAILY 10/28/16 05/08/19 History [Multivitamin (formulary)] RX: Topiramate [Topamax] 50 mg PO BID 03/29/17 05/08/19 History L.acidoph,Paracasei, B.lactis 1 cap PO DAILY 05/08/19 05/08/19 History [Probiotic] Allergies Allergy/AdvReac Type Severity Reaction Status Date / Time No Known Allergies Allergy Verified 05/08/19 11:20 Physical Exam Vitals: Vital Signs Temp Pulse Pulse Resp BP BP Pulse Ox 05/08/19 15:14 98.2 F 63 16 104/59 97 05/08/19 15:03 67 16 05/08/19 13:35 68 16 05/08/19 13:30 97.7 F 68 16 121/73 100 05/08/19 12:30 59 L 19 102/69 100 05/08/19 12:00 58 L 16 105/68 100 05/08/19 11:30 57 L 19 118/68 100 05/08/19 11:00 64 17 118/76 100 05/08/19 10:30 56 L 16 128/75 100 05/08/19 10:00 65 17 122/79 100 05/08/19 09:23 97.9 F 75 18 126/76 100 Intake and Output 05/08/19 05/08/19 05/08/19 06:59 14:59 22:59 Intake Total 10 10 Balance 10 10 Intake: IV 10 10 Invasive Line 1 10 10 Other: Weight 66.134 kg PHYSICAL EXAMINATION: Patient is lying in the bed comfortably, no acute distress, awake alert and oriented.. HEENT: Normocephalic. Neck is supple. Pupils reactive. Nostrils clear. Oral cavity is moist. Ears reveal no drainage. Neck reveals no JVD, carotid bruits, or thyromegaly. CHEST EXAMINATION: Trachea is central. Symmetrical expansion. Lung jones clear to auscultation and percussion. CARDIAC: Normal S1, S2 with no gallops. No murmurs ABDOMEN: Soft. Bowel sounds normal. No organomegaly. No abdominal bruits. Extremities: reveal no edema. No clubbing or cyanosis Neurologically awake, alert, oriented x3 with well-coordinated movements. No focal deficits noted Skin: No rash or skin lesions. Psychiatric: Coperative. Nonsuicidal Musculoskeletal: No joint swelling or deformity. Normal range of motion. Results CBC & Chem 7: 05/08/19 09:38 05/08/19 09:38 Labs: Abnormal Lab Results - Last 24 Hours (Table) 05/08/19 05/08/19 Range/Units 09:38 09:38 APTT 21.4 L (22.0-30.0) sec Chloride 114 H (98-107) mmol/L BUN 22 H (7-17) mg/dL Glucose 106 H (74-99) mg/dL AST 47 H (14-36) U/L ALT 50 H (4-34) U/L Total Protein 5.7 L (6.3-8.2) g/dL Thrombosis Risk Factor Assmnt - DVT/VTE Prophylaxis DVT/VTE Prophylaxis: Pharmacologic Prophylaxis ordered - Choose All That Apply Any of the Below Risk Factors Present?: Yes Each Factor Represents 1 point: Age 41-60 years, Obesity (BMI >25) Other Risk Factors: No Other congenital or acquired thrombophilia - If yes, enter type in comment: No Thrombosis Risk Factor Assessment Total Risk Factor Score: 2 Thrombosis Risk Factor Assessment Level: Low Risk Assessment and Plan Assessment: Atypical chest pain mainly upper abdominal and epigastric region. Rule out ACS Petechial rash over the left abdominal wall Mild transaminitis Occasional alcohol use Recent history of cold and flulike illness. History of benign brain stem tumor on follow-up History of bradycardia Right breast hyperplasia with lumpectomy History of constipation Diverticular disease DVT prophylaxis with heparin subcu Plan: Patient will be continued on telemetry monitoring. Serial EKG and troponins 3. Ultrasound of the abdomen and HEPATITIS PANEL WAS ORDERED DUE to elevated liver enzymes. Symptomatic management for nausea. Cardiology was consulted. Follow up closely and further recommendations based on the clinical course. Time with Patient: Greater than 30
[2019-05-08] MEDS ORDERED: TOPIRAMATE 25 MG TAB PO SCH (21:00)
[2019-05-08] MEDS ORDERED: FAMOTIDINE 20 MG TAB PO SCH (21:00)
[2019-05-09] MEDS ORDERED: HEPARIN SODIUM,PORCINE 5,000 UNIT/ML 1 ML VIAL SQ SCH
[2019-05-09 02:00] LABS: Hepatitis A Antibody IgM Non-Reactive (Non-Reactive); Hepatitis B Core IgM Non-Reactive (Non-Reactive); Hepatitis B Surface Antigen Non-Reactive (Non-Reactive); Hepatitis C IgG Antibody Non-Reactive (Non-Reactive)
[2019-05-09] MEDS ORDERED: ASPIRIN 325 MG TAB PO SCH (09:00)
[2019-05-09] MEDS ORDERED: MULTIVITAMINS, THERA 1 EACH TAB PO SCH (09:00)
--- NOTE | 2019-05-23 22:03 | P.DS ---
Providers Date of admission: 05/08/19 12:59 Expected date of discharge: 05/08/19 Attending physician: Ayan Harrison Consults: 05/08/19 11:16 Consult Physician Routine Consulting Provider: [facility] Consult Reason/Comments: Chest pain, Do you want consulting provider notified?: Yes Primary care physician: Lois Stauffer [facility] Course: Diischarge Diagnosis Atypical chest pain mainly upper abdominal and epigastric region. Rule out ACS Petechial rash over the left abdominal wall Mild transaminitis. r/ hepatitis. f/u US abd. Occasional alcohol use Recent history of cold and flulike illness. History of benign brain stem tumor on follow-up History of bradycardia Right breast hyperplasia with lumpectomy History of constipation Diverticular disease DVT prophylaxis with heparin subcu Hospital course. Patient is a 53-year-old female with a known history of benign brain stem tumor, history of bradycardia, right breast hyperplasia with lumpectomy, palpitation, d iverticular disease came to ER with the complaints of chest pain when she woke up today morning and has been on and off dull aching pain since then. Pain started around 5 AM this morning. Denied any radiation of the pain. Mainly the pain is lower anterior chest. No associated shortness of breath. Patient does have nausea. Dizziness as well. Plan patient says that she's been having cold-like symptoms last few days but felt okay today. Patient says that she felt upper abdomen on Wednesday and pain across the lower chest on Wednesday. Patient developed chest pain today which made her to come to ER. EKG showed normal sinus rhythm Chest x-ray showed no acute cardiopulmonary process correlate for pulmonary hypertension BNP 445 Troponin 2 negative AST 47 ALT 50 Pt. left AMA Patient Condition at Discharge: Fair Plan - Discharge Summary Discharge Rx Participant: No New Discharge Prescriptions: No Action Multivitamins, Thera [Multivitamin (formulary)] 1 tab PO DAILY Topiramate [Topamax] 50 mg PO BID L.acidoph,Paracasei, B.lactis [Probiotic] 1 cap PO DAILY Discharge Medication List Multivitamins, Thera [Multivitamin (formulary)] 1 tab PO DAILY 10/28/16 [History] Topiramate [Topamax] 50 mg PO BID 03/29/17 [History] L.acidoph,Paracasei, B.lactis [Probiotic] 1 cap PO DAILY 05/08/19 [History] Follow up Appointment(s)/Referral(s): Sue Abreu MD [Primary Care Provider] - 1-2 days Discharge Disposition: Left Against Medical Advice
== END 2019-05-08 20:11 | disposition left against medical advice (07) ==
LOC: EC 09:19 → 3SCARD 12:59
PROVIDERS: ADMIT Hospitalist; ATTEND Hospitalist
DX: R07.89 Other chest pain (principal); R10.13 Epigastric pain; E86.0 Dehydration; R74.0 Nonspecific elevation of levels of transaminase and lactic acid dehydrogenase [LDH]; K75.9 Inflammatory liver disease, unspecified; R00.1 Bradycardia, unspecified; R23.3 Spontaneous ecchymoses; Z53.29 Procedure and treatment not carried out because of patient's decision for other reasons; D33.1 Benign neoplasm of brain, infratentorial; Z87.19 Personal history of other diseases of the digestive system; Z79.899 Other long term (current) drug therapy; Z80.1 Family history of malignant neoplasm of trachea, bronchus and lung; Z80.49 Family history of malignant neoplasm of other genital organs; Z90.49 Acquired absence of other specified parts of digestive tract; Z90.710 Acquired absence of both cervix and uterus
CPT/HCPCS: 93005 ×2; 96360; 99285; 36415; 83880; 80053; 80074; 82150; 83690; 83735; 84484; 85025; 85610; 85730; 71046; 76705; G0378

== ENCOUNTER → 2019-05-25 | Outpatient (CLI) | payer BC ==
--- NOTE | 2019-05-25 12:24 | MR ---
EXAMINATION TYPE: MR brain wo/w con DATE OF EXAM: 05/25/2019 COMPARISON: 06/16/2018 HISTORY: abnormality of gait, dizziness, Headache CONTRAST: Performed utilizing 6.5 mL intravenous Gadavist gadolinium contrast. TECHNIQUE: Multiplanar, multiecho imaging on a 3.0 Helen magnet is performed through the brain. Stud y is performed within 24 hours of arrival to the hospital. The craniovertebral junction is normal. The pituitary is normal. Within the anterior middle is an e nhancing lesion which is slightly hypointense on T1-weighted sequences. This measures 0.7 cm cranioca udal by 0.5 cm transverse by 0.6 cm AP dimension. Diffusion-weighted imaging is performed. No abnormal hyperintensity is present to suggest an acute i ntracranial infarct or acute ischemic change. No additional significant areas of enhancement are evident within the brain. White matter appears nor mal. Ventricles and sulci are appropriate for the patient age. IMPRESSIONS: 1. Stable appearing enhancing brainstem lesion.
== END ==
LOC: RADMRIMAIN 07:58
PROVIDERS: ATTEND Nurse Practitioner Acute Care
DX: G93.9 Disorder of brain, unspecified (principal)
CPT/HCPCS: 70553; A9585

== ENCOUNTER 2019-05-27 00:27 | Emergency (ER) | payer BC ==
[2019-05-27 00:55] VITALS: RESP 18
[2019-05-27 01:05] LABS: Basophils # (A) 0.1 k/uL (0-0.2); Basophils % (A) 2 %; Eosinophils # (A) 0.2 k/uL (0-0.7); Eosinophils % (A) 3 %; HCT 44.1 % (34.0-46.0); HGB 14.5 gm/dL (11.4-16.0); Lymphocytes # (A) 2.4 k/uL (1.0-4.8); Lymphocytes % (A) 44 %; MCH 30.7 pg (25.0-35.0); MCHC 32.8 g/dL (31.0-37.0); MCV 93.5 fL (80.0-100.0); Mean Platelet Volume 7.6; Monocytes # (A) 0.3 k/uL (0-1.0); Monocytes % (A) 6 %; Neutrophils # (A) 2.4 k/uL (1.3-7.7); Neutrophils % (A) 43 %; Platelet Count 212 k/uL (150-450); RBC 4.71 m/uL (3.80-5.40); RDW 12.4 % (11.5-15.5); WBC 5.6 k/uL (3.8-10.6)
--- NOTE | 2019-05-27 01:13 | XR ---
EXAMINATION TYPE: XR chest 2V DATE OF EXAM: 05/27/2019 COMPARISON: NONE HISTORY: Chest pain TECHNIQUE: 2 views FINDINGS: Heart is normal. Lungs are clear of infiltrate. There is no pleural effusion. There are no hilar masses. Bony thorax is intact. IMPRESSION: Normal chest. No change.
[2019-05-27 01:22] LABS: INR 0.9 (<1.2); Partial Thromboplastin Time 22.4 sec (22.0-30.0); Prothrombin Time 9.7 sec (9.0-12.0)
[2019-05-27 01:25] LABS: ALT 38 U/L (4-34); AST 46 U/L (14-36); African American GFR (CKD) >90 (>60 ml/min/1.73 sqM); Alkaline Phosphatase 88 U/L (38-126); Anion Gap 5 mmol/L; Blood Urea Nitrogen 18 mg/dL (7-17); Calcium 9.4 mg/dL (8.4-10.2); Carbon Dioxide 24 mmol/L (22-30); Chloride 108 mmol/L (98-107); Glucose 115 mg/dL (74-99); Magnesium 2.2 mg/dL (1.6-2.3); Non-African American GFR(CKD) >90 (>60 ml/min/1.73 sqM); Potassium 3.6 mmol/L (3.5-5.1); Sodium 137 mmol/L (137-145); Total Bilirubin 0.5 mg/dL (0.2-1.3); Total Protein 6.5 g/dL (6.3-8.2)
--- NOTE | 2019-05-27 01:39 | ED ---
Chest Pain HPI - General Chief Complaint: Chest Pain Stated Complaint: Chest pain/SOB Time Seen by Provider: 05/27/19 00:40 Source: patient Mode of arrival: wheelchair Limitations: no limitations - History of Present Illness Initial Comments: Sirisha is a 53-year-old female who presents to the ER today for evaluation of intermittent chest pain for over a month for which she was seen and evaluated last month and subsequent discharged from the hospital and advised follow-up outpatient. Patient also reports that for over a week she feels like her lungs are heavy. Patient reports she can't describe it any better than that she doesn't feel a tightness in her chest pressure exertional pain. She reports that she feels like she she's been getting short of breath or winded when she is doing activities which is atypical for her. She denies any illness fevers chills nausea or vomiting. She denies any exertional pain or pressure. She reports is been present and constant for over a week without improvement. She doesn't have a cough she is not coughing anything up. She has no history of asthma or COPD she is a nonsmoker. - Related Data Home Medications Medication Instructions Recorded Confirmed Multivitamins, Thera [Multivitamin 1 tab PO DAILY 10/28/16 05/08/19 (formulary)] Topiramate [Topamax] 50 mg PO BID 03/29/17 05/08/19 L.acidoph,Paracasei, B.lactis 1 cap PO DAILY 05/08/19 05/08/19 [Probiotic] Allergies Allergy/AdvReac Type Severity Reaction Status Date / Time No Known Allergies Allergy Verified 05/27/19 00:36 Review of Systems ROS Statement: Those systems with pertinent positive or pertinent negative responses have been documented in the HPI. ROS Other: All systems not noted in ROS Statement are negative. EKG Findings - EKG Comments: EKG Findings:: EKG was obtained due to complaint of chest pain and shortness breath, EKG was obtained at 12:45 AM, rate is 68 rhythm is sinus bradycardia there is a normal axis, there are normal intervals, ID 168, QRS 84, QTC is 435 there are no acute ST elevations or depressions no evidence of acute ischemia or infarction when compared to previous EKGs there is no significant change in morphology. Past Medical History Past Medical History: Chest Pain / Angina Additional Past Medical History / Comment(s): Benign brain stem tumor, bradycardia, R breast pre-cancer (hyperplasia) with lumpectomy, palpitations, constipation, diverticular disease, UTI in past, ear infections in past mostly in R ear. History of Any Multi-Drug Resistant Organisms: None Reported Past Surgical History: Appendectomy, Breast Surgery, Section, Cholecystectomy, Hysterectomy Additional Past Surgical History / Comment(s): x 3, R breast biopsies, R breast lumpectomy, colonoscopy Past Anesthesia/Blood Transfusion Reactions: No Reported Reaction Past Psychological History: No Psychological Hx Reported Smoking Status: Never smoker Past Alcohol Use History: Occasional Past Drug Use History: None Reported - Past Family History Father History Unknown: Yes Family Medical History: Unable to Obtain Additional Family Medical History / Comment(s): Father in a MVA when pt was little. Mother Family Medical History: Cancer Additional Family Medical History / Comment(s): uterine and lung cancer Brother(s) Family Medical History: No Reported History Daughter(s) Family Medical History: No Reported History Son(s) Family Medical History: No Reported History General Exam - General Exam Comments Initial Comments: Physical Exam GENERAL: Patient is well-developed and well-nourished. Patient is nontoxic and well- hydrated and is in no distress. HENT: Normocephalic, Atraumatic. EYES: PERRL, EOMI PULMONARY: Unlabored respirations. No audible rales rhonchi or wheezing was noted. CARDIOVASCULAR: There is a regular rate and rhythm without any murmurs gallops or rubs. ABDOMEN: Soft and nontender with normal bowel sounds. SKIN: Skin is clear with no lesions or rashes and otherwise unremarkable. : Deferred NEUROLOGIC: Patient is alert and oriented x3. Moving all extremities spontaneously MUSCULOSKELETAL: Normal extremities with adequate strength and full range of motion. No lower extremity swelling or edema. No calf tenderness. PSYCHIATRIC: Normal psychiatric evaluation. Limitations: no limitations Course Vital Signs 05/27/19 05/27/19 05/27/19 00:34 00:54 01:42 Temperature 97.9 F 98.1 F Pulse Rate 68 66 63 Respiratory 20 18 18 Rate Blood Pressure 138/77 136/72 108/73 O2 Sat by Pulse 100 100 99 Oximetry 05/27/19 03:18 Temperature 97.8 F Pulse Rate 72 Respiratory 18 Rate Blood Pressure 109/67 O2 Sat by Pulse 98 Oximetry Chest Pain MDM - MDM Patient was seen and evaluated, history is obtained from patient and review of medical record 53-year-old female no cardiac history presenting with over a week of feeling like she is getting winded with activity sign labs and imaging were ordered, chest x-ray with no acute findings troponin d-dimer and BNP are all negative, these results were discussed with the patient who expresses relief though there is no definitive explanation for her symptoms but doesn't appear to be any acute cardiac or pulmonary emergency the same patient's comfort plan for discharge home continued outpatient follow-up. Disposition Clinical Impression: Exertional dyspnea Disposition: HOME SELF-CARE Condition: Stable Instructions (If sedation given, give patient instructions): Chest Pain (ED) Is patient prescribed a controlled substance at d/c from ED?: No Referrals: Sue Abreu MD [Primary Care Provider] - 1-2 days
[2019-05-27 03:18] VITALS: BP 109/67; PULSE 72; TEMP 97.8
== END 2019-05-27 03:18 | disposition home or self-care (01) ==
LOC: EC 00:27
DX: R06.09 Other forms of dyspnea (principal); R07.9 Chest pain, unspecified; Z79.899 Other long term (current) drug therapy
CPT/HCPCS: 36415; 71046; 80053; 83735; 83880; 84484; 85025; 85379; 85610; 85730; 93005; 99285

== ENCOUNTER → 2019-06-07 | Outpatient (CLI) | payer BC ==
[2019-06-07 16:13] LABS: ALT 33 U/L (8-44); AST 32 U/L (13-35); Albumin/Globulin Ratio 2.75 (1.60-3.17); Alkaline Phosphatase 65 U/L (41-126); Bilirubin, Conjugated <0.20 mg/dL (0.20-0.40); Globulin 1.6 g/dL (1.6-3.3); Rheumatoid Factor, Qnt 6 IU/mL (0-15); Total Bilirubin 0.5 mg/dL (0.3-1.2)
== END | disposition home or self-care (01) ==
LOC: LABWHC1 08:42
PROVIDERS: ATTEND Internal Medicine
DX: R06.00 Dyspnea, unspecified (principal); R79.89 Other specified abnormal findings of blood chemistry
CPT/HCPCS: 36415; 80076; 82103; 83516; 85652; 86038; 86431

== ENCOUNTER → 2019-06-08 | Outpatient (CLI) | payer BC ==
--- NOTE | 2019-06-08 17:37 | CT ---
EXAMINATION TYPE: CT chest w con DATE OF EXAM: 06/08/2019 COMPARISON: 10/22/2018 HISTORY: Shortness of breath and chest pain. CT DLP: 155.8 mGycm, Automated exposure control for dose reduction was used. CONTRAST: Performed injected with 100ml mL of Isovue 300. TECHNIQUE: Axial images were obtained at 5 mm thick sections. Reconstructed images are reviewed on [employer] computer in the coronal plane. FINDINGS: Portion of the thyroid visualized is normal. There is faint nodularity within the right midlung measuring 0.4 cm. Series 4 image 38. This appears to be stable. No enlarged mediastinal or hilar adenopathy is evident. The ascending aorta diameter at the level o f the main pulmonary artery is 3.0 cm. The main pulmonary artery diameter at the bifurcation is 3.[address] sections are obtained through the upper abdomen. Abdomen is essentially unremarkable. IMPRESSIONS: 1. Stable chest. No suspicious interval change.
== END | disposition home or self-care (01) ==
LOC: RADCTMAIN 14:49
PROVIDERS: ATTEND Internal Medicine
DX: R06.02 Shortness of breath (principal)
CPT/HCPCS: 71260; Q9967

== ENCOUNTER → 2019-06-16 | Outpatient (CLI) | payer BC ==
--- NOTE | 2019-06-16 10:06 | USB ---
Reason for exam: follow-up at short interval from prior study. History: Patient has history of high-risk lesion on a previous biopsy at age 52. Benign MG pre op needle loc RT of the right breast, October 28, 2017. High risk MG stereo VAD BX RT of the right breast, October 07, 2017. Benign US biopsy breast VAD RT of the right breast, October 07, 2017. Took hormonal contraceptives for 6 months. Physical Findings: Nurse did not find any significant physical abnormalities on exam. US Breast Limited RT Right limited breast ultrasound including focal area of concern, retroareolar and axilla demonstrates a 1.4 x 0.5 x 0.5cm oval, solid, hypoechoic lesion at 8 o'clock, smooth margins, prior 1.4 x 0.4 x 1.1cm on 11/29/18 on exam on 2016 1.3 x 0.4 x 1.1cm. No significant interval growth. These results were verbally communicated with the patient and result sheet given to the patient on 06/16/19. ASSESSMENT: Benign, BI-RAD 2 RECOMMENDATION: Routine screening mammogram of both breasts in 6 months. Back on schedule.
== END | disposition home or self-care (01) ==
LOC: RADUSWWP 08:17
PROVIDERS: ATTEND Internal Medicine
DX: R92.8 Other abnormal and inconclusive findings on diagnostic imaging of breast (principal)

== ENCOUNTER 2019-10-19 16:02 | Emergency (ER) | payer BC ==
[2019-10-19 16:43] VITALS: RESP 18
[2019-10-19] MEDS ORDERED: SODIUM CHLORIDE 0.9% 1,000 ML IV STA ×2 (17:07)
--- NOTE | 2019-10-19 17:08 | ED ---
Dizziness HPI - General Chief Complaint: Dizziness Stated Complaint: Dizzy Time Seen by Provider: 10/19/19 16:35 Source: patient, RN notes reviewed, old records reviewed Mode of arrival: wheelchair Limitations: no limitations - History of Present Illness Initial Comments: This is a 55-year-old female DF for evaluation patient presents today for evaluation regards to that he we will continue dizziness headache near syncopal event. 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 Patient is no significant new medications no change in medications of chest pain shortness breath or abdominal pain. MD Complaint: dizziness, lightheadedness -: days(s) Timing: gradual onset Description: lightheadedness History of Same: No History of Trauma: No Severity: mild Improves With: nothing Worsens With: movement Associated Symptoms: denies other symptoms - Related Data Home Medications Medication Instructions Recorded Confirmed Multivitamins, Thera [Multivitamin 1 tab PO DAILY 10/28/16 10/19/19 (formulary)] Topiramate [Topamax] 50 mg PO BID 03/29/17 10/19/19 Allergies Allergy/AdvReac Type Severity Reaction Status Date / Time No Known Allergies Allergy Verified 10/19/19 18:22 Review of Systems ROS Statement: Those systems with pertinent positive or pertinent negative responses have been documented in the HPI. ROS Other: All systems not noted in ROS Statement are negative. Past Medical History Past Medical History: Chest Pain / Angina Additional Past Medical History / Comment(s): Benign brain stem tumor, bradycardia, R breast pre-cancer (hyperplasia) with lumpectomy, palpitations, constipation, diverticular disease, UTI in past, ear infections in past mostly in R ear. History of Any Multi-Drug Resistant Organisms: None Reported Past Surgical History: Appendectomy, Breast Surgery, Section, Cholecystectomy, Hysterectomy Additional Past Surgical History / Comment(s): x 3, R breast biopsies, R breast lumpectomy, colonoscopy Past Anesthesia/Blood Transfusion Reactions: No Reported Reaction Past Psychological History: No Psychological Hx Reported Smoking Status: Never smoker Past Alcohol Use History: Occasional Past Drug Use History: None Reported - Past Family History Father History Unknown: Yes Family Medical History: Unable to Obtain Additional Family Medical History / Comment(s): Father in a MVA when pt was little. Mother Family Medical History: Cancer Additional Family Medical History / Comment(s): uterine and lung cancer Brother(s) Family Medical History: No Reported History Daughter(s) Family Medical History: No Reported History Son(s) Family Medical History: No Reported History General Exam Limitations: no limitations General appearance: alert, in no apparent distress Head exam: Present: atraumatic, normocephalic, normal inspection Eye exam: Present: normal appearance, PERRL, EOMI. Absent: scleral icterus, conjunctival injection, periorbital swelling ENT exam: Present: normal exam, mucous membranes moist Neck exam: Present: normal inspection. Absent: tenderness, meningismus, lymphadenopathy Respiratory exam: Present: normal lung sounds bilaterally. Absent: respiratory distress, wheezes, rales, rhonchi, stridor Cardiovascular Exam: Present: regular rate, normal rhythm, normal heart sounds. Absent: systolic murmur, diastolic murmur, rubs, gallop, clicks GI/Abdominal exam: Present: soft, normal bowel sounds. Absent: distended, te nderness, guarding, rebound, rigid Extremities exam: Present: normal inspection, full ROM, normal capillary refill. Absent: tenderness, pedal edema, joint swelling, calf tenderness Back exam: Present: normal inspection Neurological exam: Present: alert, oriented X3, CN II-XII intact Psychiatric exam: Present: normal affect, normal mood Skin exam: Present: warm, dry, intact, normal color. Absent: rash Course Vital Signs 10/19/19 10/19/19 10/19/19 16:18 16:41 18:11 Temperature 99.0 F Pulse Rate 79 66 64 Respiratory 16 18 18 Rate Blood Pressure 138/88 130/79 113/68 O2 Sat by Pulse 98 99 95 Oximetry - Reevaluation(s) Reevaluation #1: 10/19/19 17:20 Medical records reviewed Reevaluation #2: 10/19/19 18:52 Patient has no significant current acute findings, no complaints EKG Findings - EKG Comments: EKG Findings:: EKG shows sinus a 66 NC 160 QRS 82 QTC 431 Medical Decision Making - Medical Decision Making 24 female presented with nonspecific symptoms, patient has no significant findings here in the ER resting comfortably in no distress, will be discharged home to continue rest and relax a follow-up with primary care - Lab Data Result diagrams: 10/19/19 17:12 10/19/19 17:12 Lab Results 10/19/19 10/19/19 10/19/19 Range/Units 17:12 17:12 17:12 WBC 6.3 (3.8-10.6) k/uL RBC 5.00 (3.80-5.40) m/uL Hgb 15.2 (11.4-16.0) gm/dL Hct 46.0 (34.0-46.0) % MCV 92.0 (80.0-100.0) fL MCH 30.4 (25.0-35.0) pg MCHC 33.0 (31.0-37.0) g/dL RDW 12.7 (11.5-15.5) % Plt Count 222 (150-450) k/uL Neutrophils % 44 % Lymphocytes % 44 % Monocytes % 6 % Eosinophils % 2 % Basophils % 1 % Neutrophils # 2.8 (1.3-7.7) k/uL Lymphocytes # 2.8 (1.0-4.8) k/uL Monocytes # 0.4 (0-1.0) k/uL Eosinophils # 0.2 (0-0.7) k/uL Basophils # 0.1 (0-0.2) k/uL PT 10.1 (9.0-12.0) sec INR 1.0 (<1.2) APTT 23.3 (22.0-30.0) sec D-Dimer 0.21 (<0.60) mg/L FEU Sodium 139 (137-145) mmol/L Potassium 3.8 (3.5-5.1) mmol/L Chloride 106 (98-107) mmol/L Carbon Dioxide 24 (22-30) mmol/L Anion Gap 9 mmol/L BUN 21 H (7-17) mg/dL Creatinine 0.97 (0.52-1.04) mg/dL Est GFR (CKD-EPI)AfAm 77 (>60 ml/min/1.73 sqM) Est GFR (CKD-EPI)NonAf 67 (>60 ml/min/1.73 sqM) Glucose 132 H (74-99) mg/dL Plasma Lactic Acid Neymar (0.7-2.0) mmol/L Calcium 9.9 (8.4-10.2) mg/dL Phosphorus 4.0 (2.5-4.5) mg/dL Magnesium 2.1 (1.6-2.3) mg/dL Total Bilirubin 0.4 (0.2-1.3) mg/dL AST 31 (14-36) U/L ALT 22 (4-34) U/L Alkaline Phosphatase 62 (38-126) U/L Creatine Kinase 141 H (30-135) U/L Troponin I (0.000-0.034) ng/mL NT-Pro-B Natriuret Pep pg/mL Total Protein 7.2 (6.3-8.2) g/dL Albumin 4.4 (3.5-5.0) g/dL TSH 2.570 (0.465-4.680) mIU/L Urine Color Urine Appearance (Clear) Urine pH (5.0-8.0) Ur Specific [place] (1.001-1.035) Urine Protein (Negative) Urine Glucose (UA) (Negative) Urine Ketones (Negative) Urine Blood (Negative) Urine Nitrite (Negative) Urine Bilirubin (Negative) Urine Urobilinogen (<2.0) mg/dL Ur Leukocyte Esterase (Negative) 10/19/19 10/19/19 10/19/19 Range/Units 17:12 17:12 17:12 WBC (3.8-10.6) k/uL RBC (3.80-5.40) m/uL Hgb (11.4-16.0) gm/dL Hct (34.0-46.0) % MCV (80.0-100.0) fL MCH (25.0-35.0) pg MCHC (31.0-37.0) g/dL RDW (11.5-15.5) % Plt Count (150-450) k/uL Neutrophils % % Lymphocytes % % Monocytes % % Eosinophils % % Basophils % % Neutrophils # (1.3-7.7) k/uL Lymphocytes # (1.0-4.8) k/uL Monocytes # (0-1.0) k/uL Eosinophils # (0-0.7) k/uL Basophils # (0-0.2) k/uL PT (9.0-12.0) sec INR (<1.2) APTT (22.0-30.0) sec D-Dimer (<0.60) mg/L FEU Sodium (137-145) mmol/L Potassium (3.5-5.1) mmol/L Chloride (98-107) mmol/L Carbon Dioxide (22-30) mmol/L Anion Gap mmol/L BUN (7-17) mg/dL Creatinine (0.52-1.04) mg/dL Est GFR (CKD-EPI)AfAm (>60 ml/min/1.73 sqM) Est GFR (CKD-EPI)NonAf (>60 ml/min/1.73 sqM) Glucose (74-99) mg/dL Plasma Lactic Acid Neymar 1.1 (0.7-2.0) mmol/L Calcium (8.4-10.2) mg/dL Phosphorus (2.5-4.5) mg/dL Magnesium (1.6-2.3) mg/dL Total Bilirubin (0.2-1.3) mg/dL AST (14-36) U/L ALT (4-34) U/L Alkaline Phosphatase (38-126) U/L Creatine Kinase (30-135) U/L Troponin I <0.012 (0.000-0.034) ng/mL NT-Pro-B Natriuret Pep 50 pg/mL Total Protein (6.3-8.2) g/dL Albumin (3.5-5.0) g/dL TSH (0.465-4.680) mIU/L Urine Color Urine Appearance (Clear) Urine pH (5.0-8.0) Ur Specific [place] (1.001-1.035) Urine Protein (Negative) Urine Glucose (UA) (Negative) Urine Ketones (Negative) Urine Blood (Negative) Urine Nitrite (Negative) Urine Bilirubin (Negative) Urine Urobilinogen (<2.0) mg/dL Ur Leukocyte Esterase (Negative) 10/19/19 Range/Units 18:11 WBC (3.8-10.6) k/uL RBC (3.80-5.40) m/uL Hgb (11.4-16.0) gm/dL Hct (34.0-46.0) % MCV (80.0-100.0) fL MCH (25.0-35.0) pg MCHC (31.0-37.0) g/dL RDW (11.5-15.5) % Plt Count (150-450) k/uL Neutrophils % % Lymphocytes % % Monocytes % % Eosinophils % % Basophils % % Neutrophils # (1.3-7.7) k/uL Lymphocytes # (1.0-4.8) k/uL Monocytes # (0-1.0) k/uL Eosinophils # (0-0.7) k/uL Basophils # (0-0.2) k/uL PT (9.0-12.0) sec INR (<1.2) APTT (22.0-30.0) sec D-Dimer (<0.60) mg/L FEU Sodium (137-145) mmol/L Potassium (3.5-5.1) mmol/L Chloride (98-107) mmol/L Carbon Dioxide (22-30) mmol/L Anion Gap mmol/L BUN (7-17) mg/dL Creatinine (0.52-1.04) mg/dL Est GFR (CKD-EPI)AfAm (>60 ml/min/1.73 sqM) Est GFR (CKD-EPI)NonAf (>60 ml/min/1.73 sqM) Glucose (74-99) mg/dL Plasma Lactic Acid Neymar (0.7-2.0) mmol/L Calcium (8.4-10.2) mg/dL Phosphorus (2.5-4.5) mg/dL Magnesium (1.6-2.3) mg/dL Total Bilirubin (0.2-1.3) mg/dL AST (14-36) U/L ALT (4-34) U/L Alkaline Phosphatase (38-126) U/L Creatine Kinase (30-135) U/L Troponin I (0.000-0.034) ng/mL NT-Pro-B Natriuret Pep pg/mL Total Protein (6.3-8.2) g/dL Albumin (3.5-5.0) g/dL TSH (0.465-4.680) mIU/L Urine Color Light Yellow Urine Appearance Clear (Clear) Urine pH 6.0 (5.0-8.0) Ur Specific [place] 1.010 (1.001-1.035) Urine Protein Negative (Negative) Urine Glucose (UA) Negative (Negative) Urine Ketones Negative (Negative) Urine Blood Negative (Negative) Urine Nitrite Negative (Negative) Urine Bilirubin Negative (Negative) Urine Urobilinogen <2.0 (<2.0) mg/dL Ur Leukocyte Esterase Negative (Negative) - Radiology Data Radiology results: report reviewed (CT brain and chest x-ray are negative for acute disease), image reviewed Disposition Clinical Impression: Dizziness, Weakness Disposition: HOME SELF-CARE Condition: Good Instructions (If sedation given, give patient instructions): Dizziness (ED) Is patient prescribed a controlled substance at d/c from ED?: No Referrals: Sue Abreu MD [Primary Care Provider] - 1-2 days
[2019-10-19 17:22] LABS: Basophils # (A) 0.1 k/uL (0-0.2); Basophils % (A) 1 %; Eosinophils # (A) 0.2 k/uL (0-0.7); Eosinophils % (A) 2 %; HGB 15.2 gm/dL (11.4-16.0); Lymphocytes # (A) 2.8 k/uL (1.0-4.8); Lymphocytes % (A) 44 %; MCH 30.4 pg (25.0-35.0); Mean Platelet Volume 7.4; Monocytes # (A) 0.4 k/uL (0-1.0); Monocytes % (A) 6 %; Neutrophils # (A) 2.8 k/uL (1.3-7.7); Neutrophils % (A) 44 %; Platelet Count 222 k/uL (150-450); RDW 12.7 % (11.5-15.5); WBC 6.3 k/uL (3.8-10.6)
--- NOTE | 2019-10-19 17:30 | CT ---
EXAMINATION TYPE: CT brain wo con DATE OF EXAM: 10/19/2019 COMPARISON: 01/26/2018 HISTORY: dizziness CT DLP: 1133.[address] of the brain was performed. The ventricles, basal cisterns and sulci overlying the cerebral convexities demonstrate a normal appe arance. There is no evidence for intracranial hemorrhage or sulcal effacement. No mass effects are seen. Osseous calvarium is intact. If symptoms persist consider MRI as clinically warranted. IMPRESSION: 1. No acute intracranial process is seen at this time.
[2019-10-19 17:34] LABS: Albumin 4.4 g/dL (3.5-5.0); Calcium 9.9 mg/dL (8.4-10.2); Magnesium 2.1 mg/dL (1.6-2.3); Potassium 3.8 mmol/L (3.5-5.1); Total Bilirubin 0.4 mg/dL (0.2-1.3); Total Protein 7.2 g/dL (6.3-8.2)
--- NOTE | 2019-10-19 17:36 | XR ---
EXAMINATION TYPE: XR chest 2V DATE OF EXAM: 10/19/2019 COMPARISON: 05/27/19 HISTORY: Shortness of breath TECHNIQUE: Frontal and lateral views of the chest are obtained. FINDINGS: Scattered senescent parenchymal changes noted. No evidence for infiltrate. No evidence for atelectasis. Heart size is stable. Mediastinal structures are stable and grossly unremarkable. No evidence for hilar prominence. Degenerative changes dorsal spine. IMPRESSION: 1. No evidence for acute pulmonary disease.
[2019-10-19 17:39] LABS: D-Dimer 0.21 mg/L FEU (<0.60); Partial Thromboplastin Time 23.3 sec (22.0-30.0); Prothrombin Time 10.1 sec (9.0-12.0)
[2019-10-19 18:37] LABS: Appearance,Urine Clear (Clear); Bilirubin,Urine Negative (Negative); Blood,Urine Negative (Negative); Color,Urine Light Yellow; Glucose,Urine (UA) Negative (Negative); Ketones,Urine Negative (Negative); Leukocyte Esterase,Urine Negative (Negative); Nitrite,Urine Negative (Negative); Protein,Urine Negative (Negative); Urobilinogen,Urine <2.0 mg/dL (<2.0)
[2019-10-19 19:10] VITALS: BP 107/62; PULSE 61; TEMP 98
== END 2019-10-19 19:12 | disposition home or self-care (01) ==
LOC: EC 16:02
DX: R42 Dizziness and giddiness (principal); R53.1 Weakness; R51 Headache; R55 Syncope and collapse; Z86.011 Personal history of benign neoplasm of the brain; Z20.828 Contact with and (suspected) exposure to other viral communicable diseases; Z79.899 Other long term (current) drug therapy; Z85.3 Personal history of malignant neoplasm of breast; Z90.11 Acquired absence of right breast and nipple
CPT/HCPCS: 36415; 93005; 85379; 83880; 80053; 82550; 83605; 83735; 84100; 84443; 84484; 85025; 85610; 85730; 81003; 71046; 70450; 99285; 96360; 96361; U0003

== ENCOUNTER → 2019-12-28 | Outpatient (CLI) | payer BC ==
[2019-12-28 09:29] LABS: Basophils # (A) 0.1 k/uL (0-0.2); Basophils % (A) 1 %; Eosinophils # (A) 0.2 k/uL (0-0.7); Eosinophils % (A) 3 %; HCT 46.6 % (34.0-46.0); HGB 14.7 gm/dL (11.4-16.0); Lymphocytes # (A) 2.3 k/uL (1.0-4.8); Lymphocytes % (A) 43 %; MCH 29.4 pg (25.0-35.0); MCHC 31.6 g/dL (31.0-37.0); MCV 93.1 fL (80.0-100.0); Mean Platelet Volume 7.6; Monocytes # (A) 0.3 k/uL (0-1.0); Monocytes % (A) 6 %; Neutrophils # (A) 2.4 k/uL (1.3-7.7); Neutrophils % (A) 46 %; Platelet Count 222 k/uL (150-450); RDW 12.9 % (11.5-15.5); WBC 5.3 k/uL (3.8-10.6)
[2019-12-28 15:33] LABS: % Iron Saturation 35.13 (12.00-45.00); African American GFR (CKD) 84.6 (60.0-200.0); Albumin 4.4 g/dL (3.80-4.90); Albumin/Globulin Ratio 1.91 (1.60-3.17); Anion Gap 7.8 mmol/L (4.00-12.00); BUN/Creat Ratio 23.33 Ratio (12.00-20.00); Calcium 9.8 mg/dL (8.7-10.3); Carbon Dioxide 26.2 mmol/L (21.6-31.8); Chol/HDL Ratio 3.06; Globulin 2.3 g/dL (1.6-3.3); LDL Cholesterol,Calculated 165.2 mg/dL (0.0-131.0); Total Bilirubin 0.6 mg/dL (0.2-1.2); Total Protein 6.7 g/dL (6.2-8.2); VLDL Calculation 15.8 mg/dL (5.00-40.00)
[2019-12-28 15:58] LABS: Ferritin 363.2 ng/mL (10.0-291.0)
== END | disposition home or self-care (01) ==
LOC: LABWHC1 07:56
PROVIDERS: ATTEND Psychiatry & Neurology Neurology
DX: E55.9 Vitamin D deficiency, unspecified (principal); R53.83 Other fatigue; Z51.81 Encounter for therapeutic drug level monitoring
CPT/HCPCS: 36415; 80053; 80061; 82306; 82607; 82728; 83540; 83550; 84466; 85025

== ENCOUNTER → 2020-01-18 | Outpatient (CLI) | payer BC ==
--- NOTE | 2020-01-18 13:31 | CT ---
EXAMINATION TYPE: CT chest w con DATE OF EXAM: 01/18/2020 COMPARISON: 06/08/2019 HISTORY: SOB CT DLP: 186.7 mGycm, Automated exposure control for dose reduction was used. CONTRAST: Performed injected with 100 mL of Isovue 300. TECHNIQUE: Axial images were obtained at 5 mm thick sections. Reconstructed images are reviewed on [employer] computer in the coronal plane. FINDINGS: Portion of the thyroid visualized is normal. There is a stable 0.4 cm nodule anterior right middle lobe region series 4 image 34. This was present previously on 10/22/2018 and 10/02/2016. Lung windows otherwise appear clear. No enlarged mediastinal or hilar adenopathy is evident. The ascending aorta diameter at the level o f the main pulmonary artery is 3.0 cm. The main pulmonary artery diameter at the bifurcation is 3.3 cm. Correlate for pulmonary hypertension Limited CT sections are obtained through the upper abdomen. Abdomen is essentially unremarkable. IMPRESSIONS: 1. Small right middle lobe nodule stable over the course of greater than 2 years. 2. Prominence of the main pulmonary artery. Correlate for pulmonary hypertension. 3. No suspicious acute CT chest changes.
== END | disposition home or self-care (01) ==
LOC: RADCTMAIN 07:14
PROVIDERS: ATTEND Internal Medicine
DX: R91.1 Solitary pulmonary nodule (principal); R06.02 Shortness of breath
CPT/HCPCS: 71260; Q9967

== ENCOUNTER → 2020-01-19 | Outpatient (CLI) | payer BC ==
[2020-01-19 19:36] LABS: T4, Free (Free Thyroxine) 1.1 ng/dL (0.80-1.80)
== END | disposition home or self-care (01) ==
LOC: LABWHC1 08:39
PROVIDERS: ATTEND Nurse Practitioner
DX: R00.2 Palpitations (principal)
CPT/HCPCS: 36415; 84439; 84443

== ENCOUNTER → 2020-01-20 | Outpatient (CLI) | payer BC ==
--- NOTE | 2020-01-20 11:28 | MR ---
EXAMINATION TYPE: MR cspine/lspine wo con DATE OF EXAM: 01/20/2020 COMPARISON: Lumbar MRI 08/19/2018, cervical spine MRI 07/14/2018, 08/06/2016 HISTORY: Neck and lower back pain, headaches, BUE/RLE radic. Known brainstem tumor. M 54.2, M 54.5 TECHNIQUE: Multiplanar, multisequence imaging of the lumbar and cervical spine is performed without I V contrast. FINDINGS: Lumbar spine MRI: There is a spinal curvature as on prior. Sagittal images of the lumbar spine show vertebral body heig hts and alignment to appear stable. There is multilevel spondylosis with endplate discogenic marrow s ignal change, loss of disc height and signal at the intervertebral levels greatest at L3-4, L2-3, L1- 2. The conus medullaris is normal in position and signal. L5-S1 shows facet arthropathy change. There is posterior disc bulge causing mild anterior mass effect on the thecal sac. No significant foraminal encroachment or spinal stenosis L4-5: Facet arthropathy with hypertrophy ligamentum flavum causes some posterior lateral mass effect on the thecal sac, circumferential extension laterally endplate disc complex causes some foraminal en croachment. No significant spinal stenosis. L3-4: Broad-based posterior disc bulge again noted causing mild anterior mass effect on the thecal sa c. There is facet arthropathy. No significant spinal stenosis. Circumferential extension of endplate causes some foraminal encroachment. L2-3: Mild anterior mass effect on the thecal sac due to circumferential posterior broad-based disc b ulge is noted. There is facet arthropathy with hypertrophy ligamentum flavum causing posterior latera l mass effect on the thecal sac. Circumferential extension endplate disc complex causes some mild for aminal encroachment. L1-2: Minimal posterior disc bulge noted. No significant spinal stenosis or foraminal encroachment. impression: Stable degenerative disc disease, facet arthropathy, foraminal encroachment. Cervical spine MRI: Brainstem lesion is again noted. There is multilevel spondylosis, loss of disc he ight greatest at C5-6 as on prior, there is posterior extension endplate disc complex causing mild sp inal stenosis at C5-6. Bilateral uncovertebral joint hypertrophy causes some probable foraminal encro achment. Alignment is stable. IMPRESSION: Stable degenerative disc disease. Brain stem lesion again noted.
== END | disposition home or self-care (01) ==
LOC: RADMRIMAIN 09:26
PROVIDERS: ATTEND Nurse Practitioner Acute Care
DX: M50.30 Other cervical disc degeneration, unspecified cervical region (principal); M51.36 Other intervertebral disc degeneration, lumbar region; M47.816 Spondylosis without myelopathy or radiculopathy, lumbar region
CPT/HCPCS: 72141; 72148

== ENCOUNTER → 2020-06-10 | Outpatient (CLI) | payer BC ==
--- NOTE | 2020-06-11 01:47 | MR ---
EXAMINATION TYPE: MR brain wo/w con DATE OF EXAM: 06/10/2020 COMPARISON: 05/25/2019 HISTORY: Headache CONTRAST: Standard multiplanar, multisequence MRI departmental protocol utilizing 7 mL intravenous gadolinium c ontrast. The ventricles have normal size. There is no mass effect nor midline shift. There is no sign of intra cranial hemorrhage. There is 7 mm slightly irregular area of increased signal on the T2 and FLAIR brenda ges in the medulla anteriorly and towards left side. The contrast images show some relatively dense e nhancement of this area. The margins are sharp. There is no evidence of any adjacent edema. There is no mass effect. There is no expansion of the medulla..The lesion has low signal on T1 images Corpus callosum appears normal. Sella turcica is normal. There is no evidence of cerebral cortical ed vicki. The globes are symmetric. There is normal enhancement of the venous sinuses. Impression 7 mm enhancing mass within the medulla as above not significantly different than old MR scan. This co uld be a vascular malformation. No mass effect or expansion.
--- NOTE | 2020-06-12 17:15 | MR ---
EXAMINATION TYPE: MR angio head wo con DATE OF EXAM: 06/10/2020 COMPARISON: Brain MR 06/10/2020 HISTORY: Abnormal brain MRI TECHNIQUE: Time of flight images focusing on the [place] of [place] were performed without contrast. Th ree-dimensional reconstructions performed on an alternate workstation. FINDINGS: Anterior and posterior circulation are intact. There is no evident aneurysm, vascular malfo rmation, dissection, or embolus. Right vertebral artery is dominant. The enhancing lesion seen within the brainstem on prior brain MRI is not evident on MRA of the [place]. IMPRESSION: No abnormality evident.
== END | disposition home or self-care (01) ==
LOC: RADMRIMAIN 21:31
PROVIDERS: ATTEND Psychiatry & Neurology Neurology
DX: G93.89 Other specified disorders of brain (principal); R51.9 Headache, unspecified
CPT/HCPCS: 70544; 70553; A9585

== ENCOUNTER → 2020-06-18 | Outpatient (CLI) | payer BC ==
--- NOTE | 2020-06-20 11:56 | MM ---
Reason for exam: screening (asymptomatic). Last mammogram was performed 1 year and 7 months ago. History: Patient has history of high-risk lesion on a previous biopsy at age 52. Benign MG pre op needle loc RT of the right breast, October 28, 2017. High risk MG stereo VAD BX RT of the right breast, October 07, 2017. Benign US biopsy breast VAD RT of the right breast, October 07, 2017. Took hormonal contraceptives for 6 months. Physical Findings: A clinical breast exam by your physician is recommended on an annual basis and results should be correlated with mammographic findings. MG Screening Mammo w CAD Bilateral CC and MLO view(s) were taken. Prior study comparison: November 29, 2018, bilateral MG diagnostic mammo w CAD [facility]. May 05, 2018, bilateral MG diagnostic mammo w CAD [facility]. There are scattered fibroglandular densities. Previous mammotome biopsy in the right breast. There is chronic nodularity bilaterally. No significant changes when compared with prior studies. ASSESSMENT: Benign, BI-RAD 2 RECOMMENDATION: Routine screening mammogram of both breasts in 1 year.
== END ==
LOC: RADMAMWWP 08:14
PROVIDERS: ATTEND Internal Medicine
DX: Z12.31 Encounter for screening mammogram for malignant neoplasm of breast (principal)
CPT/HCPCS: 77067

== ENCOUNTER → 2020-09-27 | Outpatient (CLI) | payer BC ==
[2020-09-27 14:42] LABS: Basophils # (A) 0.04 X 10*3/uL (0.00-0.10); Basophils % (A) 0.8 %; Eosinophils % (A) 1.9 %; HCT 42.3 % (37.2-46.3); HGB 14.1 g/dL (12.0-15.0); Lymphocytes # (A) 2.25 X 10*3/uL (0.90-5.00); Lymphocytes % (A) 43.4 %; MCH 31.1 pg (27.0-32.0); MCHC 33.3 g/dL (32.0-37.0); MCV 93.4 fL (80.0-97.0); Mean Platelet Volume 10.5 fL (9.5-12.2); Monocytes # (A) 0.38 X 10*3/uL (0.20-1.00); Monocytes % (A) 7.3 %; Neutrophils # (A) 2.42 X 10*3/uL (1.80-7.70); Neutrophils % (A) 46.6 %; Platelet Count 197 X 10*3/uL (140-440); RBC 4.53 X 10*6/uL (4.10-5.20); RDW 12.1 % (11.5-14.5); WBC 5.19 X 10*3/uL (4.50-10.00)
[2020-09-27 17:37] LABS: African American GFR (CKD) 96.9 (60.0-200.0); Albumin 4.4 g/dL (3.80-4.90); Albumin/Globulin Ratio 1.91 (1.60-3.17); Anion Gap 10.4 mmol/L (4.00-12.00); Calcium 9.4 mg/dL (8.7-10.3); Carbon Dioxide 23.6 mmol/L (21.6-31.8); Chol/HDL Ratio 2.72; Globulin 2.3 g/dL (1.6-3.3); LDL Cholesterol,Calculated 117.6 mg/dL (0.0-131.0); Non-African American GFR(CKD) 83.6 (60.0-200.0); Potassium 3.9 mmol/L (3.5-5.5); Total Bilirubin 0.5 mg/dL (0.3-1.2); Total Protein 6.7 g/dL (6.2-8.2); VLDL Calculation 11.4 mg/dL (5.00-40.00)
[2020-09-27 17:45] LABS: T4, Free (Free Thyroxine) 1.1 ng/dL (0.80-1.80)
== END | disposition home or self-care (01) ==
LOC: LABWHC1 10:05
PROVIDERS: ATTEND Nurse Practitioner Acute Care
DX: E55.9 Vitamin D deficiency, unspecified (principal); E78.2 Mixed hyperlipidemia; M62.838 Other muscle spasm; R53.83 Other fatigue
CPT/HCPCS: 36415; 80053; 80061; 82306; 82607; 84207; 84439; 84443; 84481; 85025

== ENCOUNTER 2020-10-27 | Emergency (ER) | payer BC | END 2020-10-27 21:31 | disposition home or self-care (01) ==

== ENCOUNTER → 2020-12-09 | Outpatient (CLI) | payer BC ==
--- NOTE | 2020-12-09 10:11 | CT ---
EXAMINATION TYPE: CT brain wo/w con DATE OF EXAM: 12/09/2020 COMPARISON: 10/19/2019. MRI 06/10/2020, 05/25/2019, and 06/16/2018 HISTORY: 55-year-old female G93.89; R93.0; R42. Mass, RUBIN TECHNIQUE: Examination was done in axial plane before and after administration of 100 mL Isovue-300 IV contrast. Coronal and sagittal reconstructions performed. CT DLP: 1999.6 mGycm Automated exposure control for dose reduction was used. FINDINGS: Redemonstrated are enhancing lesion within the left paramedian ventral medulla measuring 7 mm. Domina nt right vertebral artery. Dural venous sinuses are patent. No additional enhancing intracranial lesi ons seen. There is no evidence of acute intracranial hemorrhage, acute ischemic changes, mass effect, or extr a-axial fluid collection. There is no effacement of cerebral sulci or basal subarachnoid cisterns. There is no hydrocephalus. There is no midline shift. Sosa-white matter distinction is preserved. IMPRESSION: Stable 7 mm enhancing lesion left paramedian ventral medulla compared back to at least to 06/16/2018. No acute intracranial abnormality seen.
== END | disposition home or self-care (01) ==
LOC: RADCTMAIN 07:43
PROVIDERS: ATTEND Psychiatry & Neurology Neurology
DX: R22.0 Localized swelling, mass and lump, head (principal); R93.0 Abnormal findings on diagnostic imaging of skull and head, not elsewhere classified
CPT/HCPCS: 70470; Q9967

== ENCOUNTER → 2021-02-27 | Outpatient (CLI) | payer BC ==
--- NOTE | 2021-02-27 22:20 | MR ---
EXAMINATION TYPE: MR cspine/lspine wo con DATE OF EXAM: 02/27/2021 COMPARISON: MRI cervical and lumbar spine January 20, 2020 HISTORY: Headaches, neck pain that goes into both arms to fingers for a few years, low back pain that goes down both legs for a few years TECHNIQUE: Multiplanar, multisequence imaging of the cervical and lumbar spine are performed without IV contrast. C-SPINE: FINDINGS: Sagittal images of the cervical spine show the craniocervical junction to remain within nor mal limits. The cervical and upper thoracic spinal cord is normal in caliber and signal. Stable grad e 1 retrolisthesis C5 on C6. The vertebral body and intravertebral disk heights remain normal. The bone marrow signal intensity remains overall heterogeneous. Small posterior disc herniations in the u pper thoracic spine sagittal image 7 are redemonstrated. Axial images show C2-C3, C3-C4, and C4-C5 levels all to remain within normal limits. Axial images at C5-C6 level shows spondylolisthesis with broad-based posterior disc protrusion effaci ng anterior thecal sac and causing mild to moderate left greater than right bilateral neural foramina l narrowing. No significant change from prior. Axial images at C6-C7 level, broad-based posterior disc protrusion mildly facing anterior thecal sac, patent bilateral neural foramina. No significant change from prior. Axial images at C7-T1 levels remain within normal limits. IMPRESSION: Spondylolisthesis and degenerative change C5-C6 level redemonstrated. No significant davis ge from most recent MRI. L-SPINE: FINDINGS: Sagittal images of the lumbar spine show vertebral body heights and alignment to remain satisfactory. There is multilevel disc desiccation and mild disc space narrowing with relative sparing of L4-L5 an d L5-S1 levels. The conus medullaris remains normal in position and signal. The bone marrow signal intensity remains overall heterogeneous. Axial images at T12-L1 level remain within normal limits. Axial images at the L1-L2 level redemonstrate mild broad disc bulge mildly effaces the anterior theca l sac. Patent bilateral neural foramina. No significant change from prior. Axial images at L2-L3 level redemonstrate moderate broad-based posterior disc protrusion effaces the anterior thecal sac along with mild facet degenerative changes and ligament flavum hypertrophy causin g posterolateral thecal sac. There is mild to moderate bilateral neural foraminal narrowing. There is no significant change from prior. Axial images at the L3-L4 level redemonstrate mild broad disc bulge mildly effaces the anterior theca l sac. There is rjoo-oe-jompueva facet degenerative changes and ligamentum flavum hypertrophy causing posterior lateral thecal sac. There is mild bilateral neural foraminal narrowing. There is no signif icant change from prior. Axial images at the L4-L5 level shows moderate facet arthropathy and ligamentum flavum hypertrophy pa tient. Rule out thecal sac. There is moderate broad-based posterior disc protrusion effaces the anter ior thecal sac. There is moderate bilateral neural foraminal narrowing. No significant degenerative p rogression from prior. Axial images at the L5-S1 level redemonstrate moderate facet arthropathy bilaterally. There is tiny c entral disc protrusion. Spinal canal is preserved. Patent bilateral neural foramina. No significant c hange from prior. Paraspinal muscle bulk is maintained. IMPRESSION: [id number] multilevel degenerative changes in lumbar spine as detailed above. No si gnificant degenerative progression from January 2020 MRI.
== END | disposition home or self-care (01) ==
LOC: RADMRIMAIN 10:28
PROVIDERS: ATTEND Psychiatry & Neurology Neurology
DX: M51.17 Intervertebral disc disorders with radiculopathy, lumbosacral region (principal); M47.27 Other spondylosis with radiculopathy, lumbosacral region; M99.73 Connective tissue and disc stenosis of intervertebral foramina of lumbar region; M47.22 Other spondylosis with radiculopathy, cervical region; M43.12 Spondylolisthesis, cervical region
CPT/HCPCS: 72141; 72148

== ENCOUNTER → 2021-05-02 | Outpatient (CLI) | payer BC ==
[2021-05-02 10:39] LABS: Basophils # (A) 0.04 X 10*3/uL (0.00-0.10); Basophils % (A) 0.6 %; Eosinophils # (A) 0.11 X 10*3/uL (0.04-0.35); Eosinophils % (A) 1.7 %; HCT 44.3 % (37.2-46.3); HGB 14.3 g/dL (12.0-15.0); Lymphocytes # (A) 2.26 X 10*3/uL (0.90-5.00); Lymphocytes % (A) 34.3 %; MCHC 32.3 g/dL (32.0-37.0); MCV 92.9 fL (80.0-97.0); Mean Platelet Volume 10.5 fL (9.5-12.2); Monocytes # (A) 0.46 X 10*3/uL (0.20-1.00); Neutrophils % (A) 56.2 %; Platelet Count 214 X 10*3/uL (140-440); RBC 4.77 X 10*6/uL (4.10-5.20); RDW 12.1 % (11.5-14.5); WBC 6.58 X 10*3/uL (4.50-10.00)
[2021-05-02 11:07] LABS: Albumin 4.6 g/dL (3.8-4.9); Albumin/Globulin Ratio 2.19 (1.60-3.17); Anion Gap 15.3 mmol/L (10.00-18.00); BUN/Creat Ratio 21.44 Ratio (12.00-20.00); Blood Urea Nitrogen 19.3 mg/dL (9.0-27.0); Calcium 10.2 mg/dL (8.7-10.3); Carbon Dioxide 22.7 mmol/L (20.0-27.5); Globulin 2.1 g/dL (1.6-3.3); Non-African American GFR(CKD) 72.5 (60.0-200.0); Potassium 3.9 mmol/L (3.5-5.5); T4, Free (Free Thyroxine) 1.39 ng/dL (0.800-1.800); Total Bilirubin 0.4 mg/dL (0.30-1.20); Total Protein 6.7 g/dL (6.2-8.2)
== END | disposition home or self-care (01) ==
LOC: LABWHC1 07:41
PROVIDERS: ATTEND Nurse Practitioner Acute Care
DX: Z51.81 Encounter for therapeutic drug level monitoring (principal); E55.9 Vitamin D deficiency, unspecified; R51.0 Headache with orthostatic component, not elsewhere classified
CPT/HCPCS: 36415; 80053; 82306; 82607; 84207; 84439; 84443; 84481; 85025

== ENCOUNTER → 2021-05-17 | Outpatient (CLI) | payer BC ==
--- NOTE | 2021-05-17 09:48 | MR ---
EXAMINATION TYPE: MR angio head wo con DATE OF EXAM: 05/17/2021 COMPARISON: 06/10/2020 HISTORY: Dizziness, Headaches, F/U brain mass TECHNIQUE: Time of flight images focusing on the [place] of [place] were performed without contrast. FINDINGS: The vertebrobasilar and carotid systems are patent without stenosis or segmental occlusion. No sizable aneurysm sac or vascular malformation is seen. IMPRESSION: No significant abnormality seen with no interval change.
--- NOTE | 2021-05-17 09:54 | MR ---
EXAMINATION TYPE: MR shoulder LT wo con DATE OF EXAM: 05/17/2021 COMPARISON: None HISTORY: Lt shoulder pain since flu shot TECHNIQUE: Multiplanar, multisequence imaging of the left shoulder is performed without contrast. FINDINGS: There is moderate osteoarthritic change of the acromioclavicular joint resulting in mild shoulder imp ingement. There is abnormal signal intensity within the substance of the infraspinatus musculotendino us junction consistent with tear. There is a small intrasubstance tear of the supraspinatus tendon ne ar its attachment to the greater tuberosity consistent with a small rim rent tear. The glenohumeral joint is intact. There are small subchondral cysts in the humeral head near the raj chment of this infraspinatus tendon. The biceps tendon is normal in location and signal intensity. Glenohumeral joint is grossly intact. IMPRESSION: 2 rotator cuff tears as described above and mild shoulder impingement secondary to moderate osteophyt ic change of the acromioclavicular joint.
--- NOTE | 2021-05-23 11:47 | MR ---
PRE AND POSTCONTRAST ENHANCED MRI OF THE BRAIN: CLINICAL HISTORY: R42. R51.9 CONTRAST: 11 ML Multihance COMPARISON: 06/10/2020 Multiplanar and multispin-echo imaging of the brain was performed both before and after the administr ation of contrast. The ventricles, basal cisterns and sulci overlying the cerebral convexities are within normal limits. There is no evidence for midline shift or mass effect. Acute intracranial hemorrhage or extra-axial collection is not evident. There are no abnormal areas of increased or decreased signal intensity within the brain parenchyma. Following the administration of contrast again noted is a 7 mm enhancing lesion involving the medulla . No additional lesions are seen at this time. The paranasal sinuses and mastoid air cells are well-aerated. IMPRESSION: Stable 7 mm enhancing lesion involving the medulla.
== END | disposition home or self-care (01) ==
LOC: RADMRIMAIN 08:21
PROVIDERS: ATTEND Nurse Practitioner Acute Care
DX: G93.9 Disorder of brain, unspecified (principal); M75.112 Incomplete rotator cuff tear or rupture of left shoulder, not specified as traumatic
CPT/HCPCS: 70544; 70553; 73221; A9585

== ENCOUNTER → 2021-07-29 | Outpatient (CLI) | payer BC ==
--- NOTE | 2021-07-30 15:01 | MM ---
Reason for exam: screening (asymptomatic). Last mammogram was performed 1 year and 1 month ago. History: Patient is postmenopausal and has history of high-risk lesion on a previous biopsy at age 52. Benign MG pre op needle loc RT of the right breast, October 28, 2017. High risk MG stereo VAD BX RT of the right breast, October 07, 2017. Benign US biopsy breast VAD RT of the right breast, October 07, 2017. Took hormonal contraceptives for 6 months. Physical Findings: A clinical breast exam by your physician is recommended on an annual basis and results should be correlated with mammographic findings. MG 3D Screening Mammo W/Cad Bilateral CC and MLO view(s) were taken. Prior study comparison: June 18, 2020, bilateral MG screening mammo w CAD. November 29, 2018, bilateral MG diagnostic mammo w CAD [facility]. The breast tissue is heterogeneously dense. This may lower the sensitivity of mammography. Stable benign calcifications. There is chronic nodularity bilaterally. There is no dominant lesion. There is no discrete abnormality. No significant changes when compared with prior studies. ASSESSMENT: Benign, BI-RAD 2 RECOMMENDATION: Routine screening mammogram of both breasts in 1 year.
== END | disposition home or self-care (01) ==
LOC: RADMAMWWP 07:25
PROVIDERS: ATTEND Internal Medicine
DX: Z12.31 Encounter for screening mammogram for malignant neoplasm of breast (principal); Z78.0 Asymptomatic menopausal state
CPT/HCPCS: 77063; 77067

== ENCOUNTER → 2022-01-13 | Outpatient (CLI) | payer BC ==
[2022-01-13 14:31] LABS: Basophils # (A) 0.05 X 10*3/uL (0.00-0.10); Basophils % (A) 0.8 %; Eosinophils # (A) 0.07 X 10*3/uL (0.04-0.35); Eosinophils % (A) 1.1 %; HGB 14.4 g/dL (12.0-15.0); Immature Grans, Automated 0.2 %; Lymphocytes # (A) 2.31 X 10*3/uL (0.90-5.00); Lymphocytes % (A) 34.9 %; MCH 30.3 pg (27.0-32.0); MCHC 33.5 g/dL (32.0-37.0); MCV 90.3 fL (80.0-97.0); Mean Platelet Volume 10.4 fL (9.5-12.2); Monocytes # (A) 0.36 X 10*3/uL (0.20-1.00); Monocytes % (A) 5.4 %; NRBC Per 100 WBC 0 /100 WBCS (0.0-0.0); Neutrophils # (A) 3.81 X 10*3/uL (1.80-7.70); Neutrophils % (A) 57.6 %; Platelet Count 215 X 10*3/uL (140-440); RBC 4.76 X 10*6/uL (4.10-5.20); RDW 12.1 % (11.5-14.5); WBC 6.61 X 10*3/uL (4.50-10.00)
[2022-01-13 15:23] LABS: African American GFR (CKD) 96.2 (60.0-200.0); Albumin 4.4 g/dL (3.8-4.9); Albumin/Globulin Ratio 1.91 (1.60-3.17); Anion Gap 11.8 mmol/L (10.00-18.00); BUN/Creat Ratio 20.75 Ratio (12.00-20.00); Blood Urea Nitrogen 16.6 mg/dL (9.0-27.0); Calcium 9.8 mg/dL (8.7-10.3); Carbon Dioxide 24.2 mmol/L (20.0-27.5); Globulin 2.3 g/dL (1.6-3.3); T4, Free (Free Thyroxine) 1.18 ng/dL (0.800-1.800); Total Bilirubin 0.4 mg/dL (0.30-1.20); Total Protein 6.7 g/dL (6.2-8.2)
== END | disposition home or self-care (01) ==
LOC: LABWHC1 10:36
PROVIDERS: ATTEND Nurse Practitioner Acute Care
DX: E55.9 Vitamin D deficiency, unspecified (principal); R51.9 Headache, unspecified; R42 Dizziness and giddiness; R47.01 Aphasia; R13.10 Dysphagia, unspecified; R53.83 Other fatigue; E53.9 Vitamin B deficiency, unspecified
CPT/HCPCS: 36415; 80053; 82306; 82607; 84207; 84439; 84443; 84481; 85025

== ENCOUNTER → 2022-03-06 | Outpatient (CLI) | payer BC ==
--- NOTE | 2022-03-06 08:16 | MR ---
EXAMINATION TYPE: MR cspine/lspine wo con DATE OF EXAM: 03/06/2022 COMPARISON: MRI cervical and lumbar spine February 27, 2021 and older studies. HISTORY: Increasing neck and back pain, spondylosis. Back pain for years radiating into bilateral thi ghs per patient. Headache with increasing neck pain causing pain or weakness into both arms and finge rs per patient. TECHNIQUE: Multiplanar, multisequence imaging of the cervical and lumbar spine are performed without IV contrast. FINDINGS: C-SPINE: Sagittal images of the cervical spine show the craniocervical junction to redemonstrate heterogeneous 6 mm slightly T2 hyperintense round lesion involving the anterior inferior medulla sagittal image 6 unchanged from prior studies back through 2017. Stability from 2017 suggests benign etiology. The ce rvical and upper thoracic spinal cord is otherwise normal in caliber and signal. Grade 1 retrolisthes is C5 on C6 is redemonstrated. Mild to moderate disc space narrowing C5-C6 level redemonstrated other carney the vertebral body and intravertebral disk heights remain normal. The bone marrow signal intens ity remains overall heterogeneous. Axial images at C2-C3 level shows slight left paracentral bony projection minimally effacing the ante rior thecal sac and causing asymmetric mild left-sided neural foraminal narrowing similar to prior. Axial images at C3-C4 and C4-C5 levels remain within normal limits. Axial images at C5-C6 level shows spondylolisthesis with broad-based posterior disc protrusion effaci ng anterior thecal sac and causing moderate bilateral neural foraminal narrowing. More blooming artif act on current study makes accurate evaluation suboptimal. No obvious change on sagittal images. Axial images at C6-C7 level show broad-based posterior disc protrusion mildly effacing the anterior t hecal sac, patent bilateral neural foramina. No significant change from prior. Axial images at C7-T1 levels remain within normal limits. IMPRESSION: Spondylolisthesis and degenerative change C5-C6 level redemonstrated. No significant davis ge from most recent MRI. L-SPINE: FINDINGS: Sagittal images of the lumbar spine show vertebral body heights and alignment to remain satisfactory. There is multilevel disc desiccation and mild to moderate disc space narrowing L2-L3 and L3-L4 level s redemonstrated. The conus medullaris remains normal in position and signal ending mid L1 level. T he bone marrow signal intensity remains overall heterogeneous. Axial images at T12-L1 level remain within normal limits. Axial images at the L1-L2 level redemonstrates mild broad disc bulge mildly effacing the anterior the montserrat sac. Patent bilateral neural foramina. No significant change from prior. Axial images at L2-L3 level redemonstrate moderate broad-based posterior disc protrusion effacing the anterior thecal sac along with mild to moderate facet degenerative changes and ligament flavum hyper trophy effacing the posterolateral thecal sac. There is mild bilateral anterior inferior neural mary inal narrowing. There is no significant change from prior. Axial images at the L3-L4 level redemonstrates mild broad disc bulge mildly effacing the anterior the montserrat sac. There is [id number] facet degenerative changes and ligamentum flavum hypertrophy effac ing the posterior lateral thecal sac. There is mild to moderate right greater than left bilateral adriana ral foraminal narrowing. There is no significant change from prior. Axial images at the L4-L5 level redemonstrates moderate facet arthropathy and ligamentum flavum hyper trophy mildly effacing the left posterior lateral thecal sac. There is moderate broad-based posterior disc protrusion and posterior annular tear effacing the anterior thecal sac. There is moderate bilat eral neural foraminal narrowing. No significant degenerative progression from prior. Axial images at the L5-S1 level redemonstrate moderate facet arthropathy bilaterally. There is tiny c entral disc protrusion. Spinal canal is preserved as there is increased epidural fat. Patent bilatera l neural foramina. No significant change from prior. Paraspinal muscle bulk is maintained. IMPRESSION: Gvsi-[id number]-[id number] multilevel degenerative changes in lumbar spine as detailed above. No si gnificant degenerative progression from February 2021 MRI.
== END | disposition home or self-care (01) ==
LOC: RADMRIMAIN 06:37
PROVIDERS: ATTEND Psychiatry & Neurology Neurology
DX: M47.812 Spondylosis without myelopathy or radiculopathy, cervical region (principal); M47.816 Spondylosis without myelopathy or radiculopathy, lumbar region; M99.74 Connective tissue and disc stenosis of intervertebral foramina of sacral region; M51.26 Other intervertebral disc displacement, lumbar region; M50.223 Other cervical disc displacement at C6-C7 level; M43.12 Spondylolisthesis, cervical region
CPT/HCPCS: 72141; 72148

== ENCOUNTER → 2022-05-18 | Outpatient (CLI) | payer BC ==
--- NOTE | 2022-05-19 20:42 | MR ---
EXAMINATION TYPE: MR brain wo con DATE OF EXAM: 05/18/2022 7:18 AM COMPARISON: 07/06/2022, MR brain 05/17/2021, 06/10/2020. CLINICAL INDICATION:Female, 56 years old with history of R93.0 abnormal findings on DI imaging; Lesio ns, abn findings past dx imaging TECHNIQUE: Multi planar, multi sequence imaging was performed through the brain including: T1, T2, In version recovery, Diffusion weighted imaging, and gradient echo imaging. No gadolinium was given. FINDINGS: Prior enhancing lesion within the lingula demonstrates high T2 signal with associated low T 1 signal and measures similarly at 7 x 9 mm. This does demonstrate susceptibility artifact. 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 The ventricular system, and cisterns appear unremarka ble. Scattered foci of high T2 signal intensity are seen within the periventricular white matter. Mi dline structures show no abnormality. Diffusion-weighted imaging shows no evidence of restricted diff usion. The susceptibility weighted images demonstrates blooming artifact in the area of the medial le kenneth. No additional foci of susceptibility artifact identified.. The bone marrow signal is within normal limits. Paranasal sinuses and mastoid air cells: No significant paranasal sinus disease. Visualized orbits: Orbital contents are intact. IMPRESSION: Similar size of the medullary lesion measuring 9 x 7 mm when comparing to 05/17/2021. No new lesions i dentified. Finding remains suspicious for vascular malformation.
--- NOTE | 2022-05-19 20:47 | MR ---
EXAMINATION TYPE: MR angio head wo con DATE OF EXAM: 05/18/2022 7:19 AM CLINICAL INDICATION:Female, 56 years old with history of R93.0 abnormal findings on DI imaging; Lesio ns, abn findings past dx imaging COMPARISON: 05/17/2021, 06/10/2020 Technical: 3-D [id number] Axial with MIP reconstruction created on a separate workstation.. IV Contrast: None Findings: Vertebral arteries: The vertebral arteries are patent. The right vertebral artery is dominant. Basilar artery: The basilar artery is intact. The basilar artery bifurcation is normal. Internal Carotid arteries: The cervical, petrous, cavernous and supraclinoid segments are normal. MARY: Patent with no evidence of aneurysm. Azygous anterior cerebral artery. ACOM: Present without evidence of aneurysm. MCA: Patent with no evidence of aneurysm. P[employer]: Patent with no evidence of aneurysm. PCOM: Hypoplastic bilaterally. IMPRESSION: No evidence of aneurysm or significant stenosis.
== END | disposition home or self-care (01) ==
LOC: RADMRIMAIN 06:25
PROVIDERS: ATTEND Nurse Practitioner Acute Care
DX: G93.9 Disorder of brain, unspecified (principal); H53.8 Other visual disturbances; R51.9 Headache, unspecified; R93.0 Abnormal findings on diagnostic imaging of skull and head, not elsewhere classified; R20.8 Other disturbances of skin sensation
CPT/HCPCS: 70544; 70551

== ENCOUNTER → 2022-08-28 | Outpatient (CLI) | payer BC ==
--- NOTE | 2022-08-31 18:30 | MM ---
Reason for Exam: Screening (asymptomatic). Last mammogram was performed 1 year(s) and 1 month(s) ago. Patient History: Menarche at age 12. First Full-Term at age 20. Hysterectomy at age 38. Postmenopausal. Hormonal Contraceptives for 6 months. 10/28/2017, Benign Core Biopsy on the right side. 10/07/2017, Benign Core Biopsy on the right side. 10/07/2017, High risk Core Biopsy on the right side. Risk Values: Phuong 5 year model risk: 1.5%. NCI Lifetime model risk: 9.5%. Prior Study Comparison: 11/29/2018 Bilateral Diagnostic Mammogram, [facility]. 06/18/2020 Bilateral Screening Mammogram, [facility]. 07/29/2021 Bilateral Screening Mammogram, [facility]. Tissue Density: The breast tissue is heterogeneously dense. This may lower the sensitivity of mammography. Findings: Analyzed By CAD. Chronic bilateral breast nodularity. Microclip anterior right breast from prior biopsy. There is no suspicious group of microcalcifications or new suspicious mass in either breast. Overall Assessment: Benign, BI-RAD 2 Management: Screening Mammogram of both breasts in 1 year. . Patient should continue monthly self-breast exams. A clinical breast exam by your physician is recommended on an annual basis. This exam should not preclude additional follow-up of suspicious palpable abnormalities. Note on Phuong scores and lifetime risk: 1. A Phuong score greater than 3% is considered moderate risk. If this is the case, consider specialist referral to assess eligibility for a risk reducing agent. 2. If overall lifetime risk for the development of breast cancer is 20% or higher, the patient may qualify for future screening with alternating mammogram and breast MRI. Electronically signed and approved by: Victoriano Crowe M.D. Radiologist
== END | disposition home or self-care (01) ==
LOC: RADMAMWWP 07:11
PROVIDERS: ATTEND Family Medicine
DX: Z12.31 Encounter for screening mammogram for malignant neoplasm of breast (principal); Z78.0 Asymptomatic menopausal state; Z98.890 Other specified postprocedural states
CPT/HCPCS: 77063; 77067

== ENCOUNTER 2022-10-18 09:46 | Emergency (ER) | payer BC ==
[2022-10-18 10:03] VITALS: TEMP 99
[2022-10-18] MEDS ORDERED: MORPHINE SULFATE 2 MG/ML SYRINGE IVP STA (10:32)
[2022-10-18] MEDS ORDERED: KETOROLAC 15 MG/ML 1 ML VIAL IVP STA (10:32)
[2022-10-18] MEDS ORDERED: SODIUM CHLORIDE 0.9% 1,000 ML IV STA (10:32)
[2022-10-18] MEDS ORDERED: ONDANSETRON 4 MG/2 ML VIAL IVP STA (10:32)
[2022-10-18 10:49] LABS: ALT 34 U/L (4-34); African American GFR (CKD) >90 (>60 ml/min/1.73 sqM); Albumin 4.4 g/dL (3.5-5.0); Anion Gap 10 mmol/L; Basophils % (A) 0 %; Blood Urea Nitrogen 16 mg/dL (7-17); Calcium 9.7 mg/dL (8.4-10.2); Carbon Dioxide 21 mmol/L (22-30); Chloride 109 mmol/L (98-107); Eosinophils # (A) 0.2 k/uL (0-0.7); Eosinophils % (A) 3 %; Glucose 114 mg/dL (74-99); HCT 46.8 % (34.0-46.0); HGB 15.5 gm/dL (11.4-16.0); Lymphocytes # (A) 2.2 k/uL (1.0-4.8); Lymphocytes % (A) 38 %; MCH 31.1 pg (25.0-35.0); MCHC 33.1 g/dL (31.0-37.0); MCV 93.9 fL (80.0-100.0); Mean Platelet Volume 7.9; Monocytes # (A) 0.3 k/uL (0-1.0); Monocytes % (A) 5 %; Neutrophils # (A) 3.1 k/uL (1.3-7.7); Neutrophils % (A) 52 %; Non-African American GFR(CKD) >90 (>60 ml/min/1.73 sqM); Platelet Count 195 k/uL (150-450); RBC 4.98 m/uL (3.80-5.40); RDW 12.6 % (11.5-15.5); Sodium 140 mmol/L (137-145); Total Bilirubin 0.7 mg/dL (0.2-1.3); Total Protein 7.4 g/dL (6.3-8.2); WBC 5.8 k/uL (3.8-10.6)
[2022-10-18 10:53] LABS: AST 39 U/L (14-36); Alkaline Phosphatase 97 U/L (38-126); Potassium 4.1 mmol/L (3.5-5.1)
--- NOTE | 2022-10-18 10:55 | ED ---
Chest Pain HPI - General Chief Complaint: Neuro Symptoms/Deficit Stated Complaint: chest pain and headache Time Seen by Provider: 10/18/22 10:24 Source: patient, RN notes reviewed Mode of arrival: ambulatory Limitations: no limitations - History of Present Illness Initial Comments: This is a 57-year-old female who presents to the emergency department for chest pain, blurred vision, and headaches. States that she was sitting in taoism today, when she suddenly started to feel dizzy and she noticed that the vision in her left eye was blurry. She started to develop a left-sided headache as well. States that since being here this has started to spread to the other side of her head as well. She has had headaches before, but states that this feels d ifferent. 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 Follows with Dr. Cardona, neurology, and the plan is just to monitor this at this time. She does continue to have right-sided chest tightness. States that she has had similar chest pain problems before, but denies any history of heart attacks. She does follow with cardiology. She has ongoing shortness of breath, which is not any worse than normal. Denies any fevers, chills, sore throat, cough, palpitations, abdominal pain, vomiting, or diarrhea. MD Complaint: chest pain - Related Data Home Medications Medication Instructions Recorded Confirmed Multivitamins, Thera [Multivitamin 1 tab PO DAILY 10/28/16 10/19/19 (formulary)] Topiramate [Topamax] 50 mg PO BID 03/29/17 10/19/19 Allergies Allergy/AdvReac Type Severity Reaction Status Date / Time No Known Allergies Allergy Verified 10/27/20 19:19 Review of Systems ROS Statement: Those systems with pertinent positive or pertinent negative responses have been documented in the HPI. ROS Other: All systems not noted in ROS Statement are negative. Past Medical History Past Medical History: Chest Pain / Angina Additional Past Medical History / Comment(s): Benign brain stem tumor, bradycardia, R breast pre-cancer (hyperplasia) with lumpectomy, palpitations, constipation, diverticular disease, UTI in past, ear infections in past mostly in R ear. History of Any Multi-Drug Resistant Organisms: None Reported Past Surgical History: Appendectomy, Breast Surgery, Section, Cholecystectomy, Hysterectomy Additional Past Surgical History / Comment(s): x 3, R breast biopsies, R breast lumpectomy, colonoscopy Past Anesthesia/Blood Transfusion Reactions: No Reported Reaction Past Psychological History: No Psychological Hx Reported Smoking Status: Never smoker Past Alcohol Use History: Occasional Past Drug Use History: None Reported - Past Family History Father History Unknown: Yes Family Medical History: Unable to Obtain Additional Family Medical History / Comment(s): Father in a MVA when pt was little. Mother Family Medical History: Cancer Additional Family Medical History / Comment(s): uterine and lung cancer Brother(s) Family Medical History: No Reported History Daughter(s) Family Medical History: No Reported History Son(s) Family Medical History: No Reported History General Exam Limitations: no limitations General appearance: alert, in no apparent distress Head exam: Present: atraumatic, normocephalic, normal inspection Eye exam: Present: normal appearance, PERRL, EOMI. Absent: scleral icterus, conjunctival injection, periorbital swelling Pupils: Present: normal accommodation Respiratory exam: Present: normal lung sounds bilaterally. Absent: respiratory distress, wheezes, rales, rhonchi, stridor Cardiovascular Exam: Present: regular rate, normal rhythm, normal heart sounds. Absent: systolic murmur, diastolic murmur, rubs, gallop, clicks Neurological exam: Present: alert, oriented X3, CN II-XII intact Expanded Speech: Present: fluid speech Cerebellar function: Finger to Nose: Normal, Romberg: Normal Motor strength exam: RUE: 5, LUE: 5, RLE: 5, LLE: 5 Psychiatric exam: Present: normal affect, normal mood Skin exam: Present: warm, dry, intact, normal color. Absent: rash Course Vital Signs 10/18/22 10/18/22 10/18/22 09:46 09:56 10:04 Temperature 99.0 F 99 F Pulse Rate 107 H 107 H Pulse Rate [ 78 Bilateral] Respiratory 20 20 Rate Blood Pressure 168/96 168/96 O2 Sat by Pulse 98 Oximetry 10/18/22 10/18/22 12:00 14:07 Temperature Pulse Rate 66 66 Pulse Rate [ Bilateral] Respiratory 16 18 Rate Blood Pressure 120/54 102/69 O2 Sat by Pulse 98 100 Oximetry Chest Pain MDM - MDM This is a 57-year-old female who presents to the emergency department for chest pain and headaches. Was pt. sent in by a medical professional or institution? @ -No Did you speak to anyone other than the patient for history? @ -No Did you review nursing and triage notes? @ -Yes, and I agree, it is accurate with regards to the patient's symptoms. Were old charts reviewed? @ -No Differential Diagnosis? @ -Differential Headache: Migraine, tension, cluster, carbon monoxide, central venous thrombosis, pension karma temporal arteritis, acute closure glaucoma, intercranial hemorrhage, mastoiditis, sinusitis, head injury, this is not meant to be an all-inclusive list. -Differential Chest Pain: Stable Angina, Unstable Angina, STEMI, NSTEMI Aortic Dissection, Pneumothorax, Musculoskeletal, Esophageal Spasm GERD, Cholecystitis, Pancreatitis, Zoster, this is not meant to be an all-inclusive list. EKG interpreted by me (3pts min.)? @ -EKG interpreted by me demonstrating the following: Sinus rhythm. Ventricular rate 75 beats per minute, SC interval 166 ms, QRS duration 81 ms, QTC 400 ms. X-rays interpreted by me (1pt min.)? @ -Chest x-ray obtained, my interpretation identifies no localized consolidations or infiltrates. CT interpreted by me (1pt min.)? @ -Computed tomography scan of the brain and CTA of the head and neck obtained. My interpretation identifies no evidence of an acute intracranial hemorrhage, skull fracture, or aneurysm. U/S interpreted by me (1pt. min.)? @ -Not obtained. What testing was considered but not performed? (CT, X-rays, U/S, labs)? Why? @ -None What meds were considered but not given? Why? @ -None Did you discuss the management of the patient with other professionals? @ -No Did you reconcile home meds? @ -No Was smoking cessation discussed for >3mins.? @ -No Was critical care preformed (if so, how long)? @ -No Were there social determinants of health that impacted care today? How? (Homelessness, low income, unemployed, alcoholism, drug addiction, transportation, low edu. Level, literacy, decrease access to med. care, intermediate, rehab)? @ -No Was there de-escalation of care discussed even if they declined? (Discuss DNR or withdrawal of care, Hospice)? @ -No What co-morbidities impacted this encounter? (DM, HTN, Smoking, COPD, CAD, Cancer, CVA, Hep., AIDS, mental health diagnosis, sleep apnea, morbid obesity)? @ -None Was patient admitted / discharged? @ -Discharged. Lab work obtained and found to be nonactionable. We did also obtain a second troponin at the 3 hour michelle, which was also negative. Chest x- ray revealed no acute process. Given the severity of her headache with known brain lesion, and because this was different from headaches she's had in the past, computed tomography scan of the brain and CT angiogram of the head and neck were obtained. This also revealed no acute findings. Symptoms were well controlled in the emergency department with IV fluids, toradol, morphine, zofran, and pepcid. Patient overall felt significantly improved with regards to both the chest pain and headache, and felt stable for discharge home. Advised close follow up with her primary care provider. Undiagnosed new problem with uncertain prognosis? @ -None Drug Therapy requiring intensive monitoring for toxicity (Heparin, Nitro, Insulin, Cardizem)? @ -None Were any procedures done? @ -None Diagnosis/symptom? @ -Headache, chest pain Acute, or Chronic, or Acute on Chronic? @ -Acute Uncomplicated (without systemic symptoms) or Complicated (systemic symptoms)? @ -Uncomplicated Side effects of treatment? @ -None Exacerbation, Progression, or Severe Exacerbation] @ -Not applicable Poses a threat to life or bodily function? @ -No Return precautions reviewed in depth, the patient is instructed to return to the emergency department with any new, worsening, or concerning symptoms. Patient verbalized understanding. This case was discussed in detail with the attending ED physician, Dr. Bolden Presentation, findings, and treatment plan discussed in detail as well. Disposition Clinical Impression: Chest pain, Headache Disposition: HOME SELF-CARE Instructions (If sedation given, give patient instructions): Chest Pain (ED), General Headache (ED) Additional Instructions: Return to the emergency department with any new, worsening, or concerning symptoms. Alternate with ibuprofen and Tylenol as needed. Make sure that you remain well-hydrated. Follow up with your primary care provider in 1-2 days. Is patient prescribed a controlled substance at d/c from ED?: No Referrals: Anabelle Vega, [Primary Care Provider] - 1-2 days
[2022-10-18 11:01] LABS: INR 0.9 (<1.2); Partial Thromboplastin Time 22.6 sec (22.0-30.0); Prothrombin Time 10.1 sec (9.0-12.0)
--- NOTE | 2022-10-18 11:29 | CT ---
EXAMINATION TYPE: CT brain wo con DATE OF EXAM: 10/18/2022 COMPARISON: 12/09/2020, MRI 05/18/2022 INDICATION: Severe headache, known brain stem lesion DLP: 1514.5 mGycm, Automated exposure control for dose reduction was used. CONTRAST: None CT of the brain is performed utilizing 3 mm thick sections through the posterior fossa and 3 mm thick sections through the remaining calvarium. Study is performed within 24 hours of arrival to the hosp [facility]. No abnormal hyperdensity is present to suggest an acute intracranial hemorrhage. No mass lesion is evident. Subtle hypodensity is not excluded within the brain stem below the helga. T his area near the foramen magnum could correlate with the abnormality on MRI. Otherwise, patient's re ported brain stem lesions are not clearly identified during this exam. No acute infarcts are evident. Ventricles and sulci are appropriate for the patient age. Paranasal sinuses and mastoid air cells within the [id number] are clear. IMPRESSIONS: 1. No acute intracranial process. Follow-up MRI can be performed as clinically indicated. 2. Patient's reported brainstem abnormalities not clearly identified during this exam. This could be followed up with MRI.
[2022-10-18] MEDS ORDERED: FAMOTIDINE 20 MG/2 ML VIAL IV STA (11:39)
--- NOTE | 2022-10-18 11:45 | CT ---
EXAMINATION TYPE: CT angio head neck DATE OF EXAM: 10/18/2022 HISTORY: Severe headache, known brainstem lesions COMPARISON: None CT DLP: 1514.5 mGycm. Automated Exposure Control for Dose Reduction was Utilized. TECHNIQUE: CTA scan of the neck is performed without and with IV Contrast, patient injected with 65 ml mL of Isovue 370, axial images are obtained, coronal and sagittal reformatted images are reviewed. Three-D reconstructed images are created on an independent workstation and reviewed. Source images are reviewed. FINDINGS: Carotid/Vascular Structures: There is a three-vessel arch. Vertebral arteries are codominant. Common carotid artery bifurcations appear normal without significant flow-limiting stenosis. No significant plaquing is present. Internal carotid arteries and vertebral arteries are patent to the skull base. Cervical of Lam: Vertebral basilar system appears normal. Posterior cerebral vasculature is unrema rkable. Internal carotid arteries bifurcate normally into A1 and M1 posterior communicating arteries are not clearly identified. This may be faintly visualized as patent on the left source images. IMPRESSION: 1. No flow-limiting stenosis bilateral carotid bifurcations. 2. Normal [place] NASCET criteria was used in interpretation of this exam?
--- NOTE | 2022-10-18 12:40 | XR ---
EXAMINATION TYPE: XR chest 2V DATE OF EXAM: 10/18/2022 COMPARISON: 10/19/2019 INDICATION: Chest pain TECHNIQUE: Frontal and lateral views of the chest are obtained. FINDINGS: The heart size is normal. The pulmonary vasculature is normal. The lungs are clear. IMPRESSION: 1. No acute pulmonary process.
[2022-10-18] MEDS ORDERED: DEXAMETHASONE SOD PHOSPHATE 10 MG/ML 1 ML VIAL IVP STA (12:44)
[2022-10-18] MEDS ORDERED: ACETAMINOPHEN TAB 500 MG TAB PO STA (12:44)
[2022-10-18 12:58] VITALS: PULSE 66
[2022-10-18 14:10] VITALS: BP 102/69; RESP 18
== END 2022-10-18 14:09 | disposition home or self-care (01) ==
LOC: EC 09:46
DX: R07.89 Other chest pain (principal); R51.9 Headache, unspecified
CPT/HCPCS: 99285 ×2; 96374 ×2; 96375 ×4; 96361 ×2; 36415; 93005; 80053; 83735; 84484; 85025; 85610; 85730; 71046; 70496; 70450; 70498; J2405; J2270; J1885; Q9967

== ENCOUNTER → 2023-02-13 | Outpatient (CLI) | payer BC ==
--- NOTE | 2023-02-14 14:38 | MR ---
EXAMINATION TYPE: MR cspine/tspine/lspine wo con DATE OF EXAM: 03/06/2022 COMPARISON: None HISTORY: Neck and back pain into yaniv upper and lower extremities CONTRAST: Performed utilizing 0 mL intravenous Gadavist gadolinium contrast. TECHNIQUE: Multiplanar multiecho imaging on a 3.0 Helen magnet is performed through the cervical thor acic and lumbar spine. FINDINGS: At the skull base there is some increased linear signal within the mid to near the foramen magnum, ex ample image is series 501 image 7, series 401 image 7. This could be vascular related. Finding was pr esent on the 05/18/2022 MRI brain and MRI cervical spine 03/06/2022. Cervical spine: C6-7: There is mild broad-based disc bulge with anterior thecal sac flattening. No AP spinal canal st enosis present. Neural foramen are patent. C5-6: Broad-based disc bulge is present with moderate anterior thecal sac compression. This is greate r in the left paracentral region with cord contact and some cord flattening some spinal canal stenosi s is present. C2-3: Small left paracentral disc bulge is present with mild anterior thecal sac compression. No AP s jerry canal stenosis present. No cord contact is evident. Remaining cervical spine levels appear without significant disc bulge focal disc herniation spinal ca nal stenosis or neural foraminal stenosis. Thoracic spine: T7-8: There is left paracentral disc bulging with moderate anterior thecal sac compression. Cord cont act and cord flattening is evident. AP spinal canal stenosis is not present. T3-4: Some facet hypertrophy has mild posterior lateral thecal sac compression which may have some co rd deformity posterior lateral right aspect. Example series 1401 image 12. No spinal canal stenosis i s present. Lumbar spine: L4-5: Broad-based disc bulge is present with mild to moderate anterior thecal sac flattening. There i s increased signal within the disc space on T2-weighted images, annular tear may be present. Facet hy pertrophy and ligamentum flavum laxity and posterior lateral thecal sac contact. Some spinal canal na rrowing is present without focal stenosis. Mild to moderate bilateral foraminal stenosis is present. L3-4: Facet hypertrophy and ligamentum flavum laxity and mild posterior lateral thecal sac compressio n. No spinal canal stenosis is evident. Neural foramen are patent. L2-3: Facet hypertrophy with ligamentum flavum laxity with posterior lateral thecal sac impression, g reater on the right. AP spinal canal stenosis is not present. There is some mild canal narrowing. Betsy ral foramen are patent. L1-2: Minimal disc bulge has anterior thecal sac flattening. No spinal canal stenosis or neural mary inal stenosis is present. IMPRESSION: 1. T2 hyperintensity within the medulla present previously. 2. Disc bulging C5-6 in the left paracentral region with cord contact, cord flattening and spinal can al stenosis. 3. Small left paracentral disc bulge C2-C3 and broad-based disc bulge C6-7 without spinal canal steno sis or cord contact. 4. Left paracentral disc bulging T7-8 with moderate anterior thecal sac compression cord contact and cord flattening. 5. Facet hypertrophy with right posterior lateral thecal sac contact T3-4. 6. Moderate broad-based disc bulge L4-5 and facet hypertrophy with ligamentum flavum laxity contribut ing to mild spinal canal narrowing without stenosis. 7. Facet hypertrophy with ligamentum flavum laxity contributing to mild spinal canal narrowing withou t stenosis at the L2-3 level.
== END | disposition home or self-care (01) ==
LOC: RADMRIMAIN 07:52
PROVIDERS: ATTEND Psychiatry & Neurology Neurology
DX: M51.36 Other intervertebral disc degeneration, lumbar region (principal); M50.30 Other cervical disc degeneration, unspecified cervical region; M51.34 Other intervertebral disc degeneration, thoracic region; M47.814 Spondylosis without myelopathy or radiculopathy, thoracic region; M47.816 Spondylosis without myelopathy or radiculopathy, lumbar region; M50.31 Other cervical disc degeneration, high cervical region
CPT/HCPCS: 72141; 72146; 72148

== ENCOUNTER → 2023-03-31 | Outpatient (CLI) | payer BC ==
--- NOTE | 2023-03-31 13:18 | CT ---
EXAMINATION TYPE: CT abdomen w con DATE OF EXAM: 03/31/2023 COMPARISON: 10/22/2018 HISTORY: upper abdominal pain and stool color changes CT DLP: 1027 mGycm Automated exposure control for dose reduction was used. TECHNIQUE: Helical acquisition of images was performed from the lung bases through the top of iliac crest to include entire abdomen. CONTRAST: Performed with Oral Contrast and with IV Contrast, patient injected with 100ml mL of Isovue 300. FINDINGS: LUNG BASES: No significant abnormality is appreciated. LIVER/GB: Liver slightly reduced attenuation which would represent a mild ptosis. Cholecystectomy charla nges. PANCREAS: No significant abnormality is seen. SPLEEN: No significant abnormality is seen. ADRENALS: No significant abnormality is seen. KIDNEYS: No hydronephrosis. There is bilateral cortical lobulation. There are two punctate nonobstruc ting left renal calculi measuring 2 mm BOWEL: Small hiatal hernia. Mild narrowing of the gastric antral wall could be related to incomplete distention. No evidence obstruction. LYMPH NODES: No significant abnormality is seen. OSSEOUS STRUCTURES: Multilevel hypertrophic and degenerative changes of the spine. FREE AIR: No free air is visualized. OTHER: Bilateral cystic adnexal lesions partially included [id number] greater on the right measuri ng 3.5 cm. Surgical clips in the left pelvis. Small fat-containing. Helical hernia. IMPRESSION: 1. Nonobstructing left renal calculi. 2. Bilateral adnexal cystic masses recommend pelvic ultrasound. 3. Small hiatal hernia. There is mild thickening of the wall of the gastric antrum which could be sec ondary to incomplete distention. If clinical history is suggestive of a gastritis or peptic ulcer dis ease consider EGD.
== END | disposition home or self-care (01) ==
LOC: RADCTMAIN 11:44
PROVIDERS: ATTEND Family Medicine
DX: K44.9 Diaphragmatic hernia without obstruction or gangrene (principal); K29.50 Unspecified chronic gastritis without bleeding; K21.9 Gastro-esophageal reflux disease without esophagitis; N20.0 Calculus of kidney; R19.5 Other fecal abnormalities
CPT/HCPCS: 74160; Q9967

== ENCOUNTER → 2023-04-09 | Outpatient (CLI) | payer BC ==
--- NOTE | 2023-04-10 10:03 | US ---
EXAMINATION TYPE: US transvaginal DATE OF EXAM: 04/09/2023 COMPARISON: CT 03/31/2023. 03/06/2022 MRI. CLINICAL INDICATION: Female, 57 years old with history of R10.9 ABD PAIN N94.89 COND ASSOC W GEN ORGA NS; Hysterectomy 2003 due to heavy menses ?bladder tumor found during surgery. CT shower bilateral adnexal masses; TECHNIQUE: . . Transvaginal sonographic images were ordered by doctor Date of LMP: 2003 EXAM MEASUREMENTS: Uterus: Surgically absent cm Endometrial Stripe: Surgically absent cm Right Ovary: 5.4 x 3.7 x 3.9 cm Left Ovary: 4.8 x 3.3 x 2.9 cm 1. Uterus: na 2. Endometrium: na 3. Right Ovary: simple cyst = 3.3 x 2.8 x 2.7 4. Left Ovary: simple cyst = 3.1 x 2.2 x 1.6 5. Bilateral Adnexa: wnl 6. Posterior cul-de-sac: wnl IMPRESSION: 1. Uterus is surgically absent. 2. Bilateral simple ovarian cysts. Seen dating back to MRI 03/06/2022.
== END | disposition home or self-care (01) ==
LOC: RADUSWWP 13:33
PROVIDERS: ATTEND Family Medicine
DX: N83.291 Other ovarian cyst, right side (principal); N83.292 Other ovarian cyst, left side; N94.89 Other specified conditions associated with female genital organs and menstrual cycle; Z90.710 Acquired absence of both cervix and uterus
CPT/HCPCS: 76830

== ENCOUNTER 2023-06-07 14:23 | Emergency (ER) | payer BC ==
[2023-06-07 14:46] VITALS: RESP 18
--- NOTE | 2023-06-07 15:25 | ED ---
General Adult HPI - General Chief complaint: Abdominal Pain Stated complaint: Chest Pain-Post Colonoscopy Time Seen by Provider: 06/07/23 15:05 Source: patient, family, RN notes reviewed Mode of arrival: ambulatory Limitations: no limitations - History of Present Illness Initial comments: 57-year-old female presents to the emergency department for evaluation of left- sided abdominal pain x4 days. Patient states that she had a colonoscopy with Dr. Vera at [facility] on . She states that following a history started having some left-sided abdominal pain. This progressed to left- sided shoulder pain and pain into her left sided flank. She states that she has not been able to eat much because she gets a lot of pain. She admits to nausea without vomiting. Last bowel movement was . She is passing gas. Denies fever, chills. - Related Data Home Medications Medication Instructions Recorded Confirmed Multivitamins, Thera [Multivitamin 1 tab PO DAILY 10/28/16 06/07/23 (formulary)] Topiramate [Topamax] 50 mg PO BID 03/29/17 06/07/23 Atorvastatin [Lipitor] 40 mg PO HS 06/07/23 06/07/23 Omeprazole 40 mg PO AC-BRKFST 06/07/23 06/07/23 Previous Rx's Medication Instructions Recorded Cephalexin [Keflex] 500 mg PO Q12HR 7 Days #14 cap 06/07/23 HYDROcodone/APAP 5-325MG [[place] 1 tab PO Q6HR PRN 3 Days #12 tab 06/07/23 5-325] Tamsulosin [Flomax] 0.4 mg PO DAILY #5 cap 06/07/23 Allergies Allergy/AdvReac Type Severity Reaction Status Date / Time No Known Allergies Allergy Verified 06/07/23 16:20 Review of Systems ROS Statement: Those systems with pertinent positive or pertinent negative responses have been documented in the HPI. ROS Other: All systems not noted in ROS Statement are negative. Past Medical History Past Medical History: Chest Pain / Angina Additional Past Medical History / Comment(s): Benign brain stem tumor, bradycardia, R breast pre-cancer (hyperplasia) with lumpectomy, palpitations, constipation, diverticular disease, UTI in past, ear infections in past mostly in R ear. History of Any Multi-Drug Resistant Organisms: None Reported Past Surgical History: Appendectomy, Breast Surgery, Section, Cholecystectomy, Hysterectomy Additional Past Surgical History / Comment(s): x 3, R breast biopsies, R breast lumpectomy, colonoscopy Past Anesthesia/Blood Transfusion Reactions: No Reported Reaction Past Psychological History: No Psychological Hx Reported Smoking Status: Never smoker Past Alcohol Use History: Occasional Past Drug Use History: None Reported - Past Family History Father History Unknown: Yes Family Medical History: Unable to Obtain Additional Family Medical History / Comment(s): Father in a MVA when pt was little. Mother Family Medical History: Cancer Additional Family Medical History / Comment(s): uterine and lung cancer Brother(s) Family Medical History: No Reported History Daughter(s) Family Medical History: No Reported History Son(s) Family Medical History: No Reported History General Exam Limitations: no limitations General appearance: alert Head exam: Present: atraumatic, normocephalic, normal inspection Eye exam: Present: normal appearance, PERRL, EOMI. Absent: scleral icterus, conjunctival injection, periorbital swelling ENT exam: Present: normal exam, mucous membranes moist Neck exam: Present: normal inspection. Absent: tenderness, meningismus, lymph adenopathy Respiratory exam: Present: normal lung sounds bilaterally. Absent: respiratory distress, wheezes, rales, rhonchi, stridor Cardiovascular Exam: Present: regular rate, normal rhythm, normal heart sounds. Absent: systolic murmur, diastolic murmur, rubs, gallop, clicks GI/Abdominal exam: Present: tenderness, guarding, hypoactive bowel sounds. Absent: rebound, rigid Extremities exam: Present: normal inspection, full ROM, normal capillary refill. Absent: tenderness, pedal edema, joint swelling, calf tenderness Back exam: Present: normal inspection Neurological exam: Present: alert, oriented X3 Psychiatric exam: Present: normal affect, normal mood Skin exam: Present: warm, dry, intact, normal color. Absent: rash Course Vital Signs 06/07/23 06/07/23 14:36 18:20 Temperature 99.0 F 97.9 F Pulse Rate 97 65 Respiratory 18 18 Rate Blood Pressure 137/98 103/72 O2 Sat by Pulse 100 99 Oximetry Medical Decision Making - Medical Decision Making Was pt. sent in by a medical professional or institution (, PA, INSPECTOR OF WEIGHTS AND MEASURES, urgent care, hospital, or fpc...) When possible be specific @ -No Did you speak to anyone other than the patient for history (EMS, parent, family, police, friend...)? What history was obtained from this source @ -No Did you review nursing and triage notes (agree or disagree)? Why? @ -I reviewed and agree with nursing and triage notes Were old charts reviewed (outside hosp., previous admission, EMS record, old EKG, old radiological studies, urgent care reports/EKG's, fpc records)? Report findings @ -No old charts were reviewed Differential Diagnosis (chest pain, altered mental status, abdominal pain women, abdominal pain men, vaginal bleeding, weakness, fever, dyspnea, syncope, headache, dizziness, GI bleed, back pain, seizure, CVA, palpatations, mental health, musculoskeletal)? @ -Differential Abdominal Pain Women: Appendicitis, Cholecystitis, diverticulosis, ischemic bowel, pancreatitis, hepatitis, UTI, gastroenteritis, AAA, incarcerated hernia, bowel obstruction, constipation, inflammatory bowel, hepatitis, peptic ulcer disease, splenic infarction, perforated viscus, vulvitis, ovarian torsion, PID, kidney stone, placenta abruption, this is not meant to be an all-inclusive list EKG interpreted by me (3pts min.). @ -EKG at 1549 shows sinus rhythm rate 63, OR 143, QRS 85, QTQTc 509806; comparable to prior X-rays interpreted by me (1pt min.). @ -None done CT interpreted by me (1pt min.). @ -CT abdomen pelvis shows a 2 to 3 mm stone in the left ureter, bilateral ovarian cysts U/S interpreted by me (1pt. min.). @ -None done What testing was considered but not performed or refused? (CT, X-rays, U/S, labs)? Why? @ -None What meds were considered but not given or refused? Why? @ -None Did you discuss the management of the patient with other professionals (professionals i.e. , PA, INSPECTOR OF WEIGHTS AND MEASURES, lab, RT, psych nurse, social services analyst, systems lead, teacher, sustainability officer, therapeutic case manager)? Give summary @ -Dr. Cabello discussed the case with the radiologist because of concern for a kidney stone in the left ureter which was confirmed, addendum was created Was smoking cessation discussed for >3mins.? @ -No Was critical care preformed (if so, how long)? @ -No Were there social determinants of health that impacted care today? How? (Homelessness, low income, unemployed, alcoholism, drug addiction, transpor tation, low edu. Level, literacy, decrease access to med. care, senior care, rehab)? @ -No Was there de-escalation of care discussed even if they declined (Discuss DNR or withdrawal of care, Hospice)? DNR status @ -No What co-morbidities impacted this encounter? (DM, HTN, Smoking, COPD, CAD, Cancer, CVA, ARF, Chemo, Hep., AIDS, mental health diagnosis, sleep apnea, morbid obesity)? @ -None Was patient admitted / discharged? Hospital course, mention meds given and route, prescriptions, significant lab abnormalities, going to OR and other pertinent info. @ -Discharged. Patient presented to the emergency department for evaluation of left-sided abdominal pain. Patient had a colonoscopy on Wednesday. Laboratory studies obtained.CBC shows normal WBC at 6.4; normal coagulation studies, lactic acid 1.2; UA shows trace protein, 3+ ketones, moderate leukocyte esterase, 17 WBCs. Patient was given 1 L normal saline in the emergency department. Patient also received morphine for pain control. Patient given 1 g of Rocephin for possible UTI. CT obtained which shows left-sided ureterolithiasis with mild hydronephrosis. Patient will be provided medication for pain control at home, Flomax, antibiotics. Advised to follow-up with her PCP and urology. Patient understanding agreeable with plan. Patient stable at time of discharge. Case discussed with Dr. Cabello. Undiagnosed new problem with uncertain prognosis? @ -No Drug Therapy requiring intensive monitoring for toxicity (Heparin, Nitro, Insulin, Cardizem)? @ -No Were any procedures done? @ -No Diagnosis/symptom? @ -Ureterolithiasis, abdominal pain Acute, or Chronic, or Acute on Chronic? @ -Acute Uncomplicated (without systemic symptoms) or Complicated (systemic symptoms)? @ -Uncomplicated Side effects of treatment? @ -No Exacerbation, Progression, or Severe Exacerbation? @ -No Poses a threat to life or bodily function? How? (Chest pain, [place], [place], pneumonia, PE, COPD, DKA, ARF, appy, cholecystitis, CVA, Diverticulitis, Homicidal, Suicidal, threat to staff... and all critical care pts) @ -No - Lab Data Result diagrams: 06/07/23 15:36 06/07/23 15:36 Lab Results 06/07/23 06/07/23 06/07/23 Range/Units 15:36 15:36 15:36 WBC 6.4 (3.8-10.6) k/uL RBC 4.93 (3.80-5.40) m/uL Hgb 15.3 (11.4-16.0) gm/dL Hct 45.6 (34.0-46.0) % MCV 92.5 (80.0-100.0) fL MCH 30.9 (25.0-35.0) pg MCHC 33.5 (31.0-37.0) g/dL RDW 12.4 (11.5-15.5) % Plt Count 217 (150-450) k/uL MPV 7.9 Neutrophils % 49 % Lymphocytes % 39 % Monocytes % 7 % Eosinophils % 2 % Basophils % 1 % Neutrophils # 3.1 (1.3-7.7) k/uL Lymphocytes # 2.5 (1.0-4.8) k/uL Monocytes # 0.4 (0-1.0) k/uL Eosinophils # 0.1 (0-0.7) k/uL Basophils # 0.1 (0-0.2) k/uL PT 10.4 (10.0-12.5) sec INR 0.9 (<1.2) APTT 22.8 (22.0-30.0) sec Sodium (137-145) mmol/L Potassium (3.5-5.1) mmol/L Chloride (98-107) mmol/L Carbon Dioxide (22-30) mmol/L Anion Gap mmol/L BUN (7-17) mg/dL Creatinine (0.52-1.04) mg/dL Est GFR (CKD-EPI)AfAm (>60 ml/min/1.73 sqM) Est GFR (CKD-EPI)NonAf (>60 ml/min/1.73 sqM) Glucose (74-99) mg/dL Plasma Lactic Acid Neymar (0.7-2.0) mmol/L Calcium (8.4-10.2) mg/dL Total Bilirubin (0.2-1.3) mg/dL AST (14-36) U/L ALT (4-34) U/L Alkaline Phosphatase (38-126) U/L Total Protein (6.3-8.2) g/dL Albumin (3.5-5.0) g/dL Amylase (30-110) U/L Lipase (23-300) U/L Urine Color Yellow Urine Appearance Cloudy H (Clear) Urine pH 5.5 (5.0-8.0) Ur Specific [place] 1.031 (1.001-1.035) Urine Protein Trace H (Negative) Urine Glucose (UA) Negative (Negative) Urine Ketones 3+ H (Negative) Urine Blood Negative (Negative) Urine Nitrite Negative (Negative) Urine Bilirubin Negative (Negative) Urine Urobilinogen <2.0 (<2.0) mg/dL Ur Leukocyte Esterase Moderate H (Negative) Urine RBC 2 (0-5) /hpf Urine WBC 17 H (0-5) /hpf Ur Squamous Epith Cells 1 (0-4) /hpf Calcium Oxalate Crystal Many H (None) /hpf Urine Mucus Many H (None) /hpf 06/07/23 06/07/23 Range/Units 15:36 15:36 WBC (3.8-10.6) k/uL RBC (3.80-5.40) m/uL Hgb (11.4-16.0) gm/dL Hct (34.0-46.0) % MCV (80.0-100.0) fL MCH (25.0-35.0) pg MCHC (31.0-37.0) g/dL RDW (11.5-15.5) % Plt Count (150-450) k/uL MPV Neutrophils % % Lymphocytes % % Monocytes % % Eosinophils % % Basophils % % Neutrophils # (1.3-7.7) k/uL Lymphocytes # (1.0-4.8) k/uL Monocytes # (0-1.0) k/uL Eosinophils # (0-0.7) k/uL Basophils # (0-0.2) k/uL PT (10.0-12.5) sec INR (<1.2) APTT (22.0-30.0) sec Sodium 142 (137-145) mmol/L Potassium 3.6 (3.5-5.1) mmol/L Chloride 108 H (98-107) mmol/L Carbon Dioxide 24 (22-30) mmol/L Anion Gap 10 mmol/L BUN 15 (7-17) mg/dL Creatinine 0.77 (0.52-1.04) mg/dL Est GFR (CKD-EPI)AfAm >90 (>60 ml/min/1.73 sqM) Est GFR (CKD-EPI)NonAf 87 (>60 ml/min/1.73 sqM) Glucose 103 H (74-99) mg/dL Plasma Lactic Acid Neymar 1.2 (0.7-2.0) mmol/L Calcium 9.7 (8.4-10.2) mg/dL Total Bilirubin 0.7 (0.2-1.3) mg/dL AST 33 (14-36) U/L ALT 25 (4-34) U/L Alkaline Phosphatase 83 (38-126) U/L Total Protein 7.0 (6.3-8.2) g/dL Albumin 4.3 (3.5-5.0) g/dL Amylase 60 (30-110) U/L Lipase 95 (23-300) U/L Urine Color Urine Appearance (Clear) Urine pH (5.0-8.0) Ur Specific [place] (1.001-1.035) Urine Protein (Negative) Urine Glucose (UA) (Negative) Urine Ketones (Negative) Urine Blood (Negative) Urine Nitrite (Negative) Urine Bilirubin (Negative) Urine Urobilinogen (<2.0) mg/dL Ur Leukocyte Esterase (Negative) Urine RBC (0-5) /hpf Urine WBC (0-5) /hpf Ur Squamous Epith Cells (0-4) /hpf Calcium Oxalate Crystal (None) /hpf Urine Mucus (None) /hpf Disposition Clinical Impression: Nephrolithiasis Disposition: HOME SELF-CARE Condition: Stable Instructions (If sedation given, give patient instructions): Kidney Stones (ED) Additional Instructions: Please follow up with your surgeon and urology. Return to the emergency depart ment for new or worsening symptoms as we discussed. Prescriptions: Tamsulosin [Flomax] 0.4 mg PO DAILY #5 cap Cephalexin [Keflex] 500 mg PO Q12HR 7 Days #14 cap HYDROcodone/APAP 5-325MG [[place] 5-325] 1 tab PO Q6HR PRN 3 Days #12 tab PRN Reason: Pain Is patient prescribed a controlled substance at d/c from ED?: No Referrals: Anabelle Vega DO [Primary Care Provider] - 1-2 days Chip Ren MD [STAFF PHYSICIAN] - 1-2 days Time of Disposition: 18:11
[2023-06-07] MEDS: SODIUM CHLORIDE 0.9% 1,000 ML IV STA (15:46)
[2023-06-07] MEDS: ONDANSETRON 4 MG/2 ML VIAL IVP STA (15:55)
[2023-06-07] MEDS: MORPHINE SULFATE 4 MG/ML SYRINGE IVP STA (15:55)
[2023-06-07 16:19] LABS: Basophils # (A) 0.1 k/uL (0-0.2); Basophils % (A) 1 %; Eosinophils # (A) 0.1 k/uL (0-0.7); Eosinophils % (A) 2 %; HCT 45.6 % (34.0-46.0); HGB 15.3 gm/dL (11.4-16.0); Lymphocytes # (A) 2.5 k/uL (1.0-4.8); Lymphocytes % (A) 39 %; MCH 30.9 pg (25.0-35.0); MCHC 33.5 g/dL (31.0-37.0); MCV 92.5 fL (80.0-100.0); Mean Platelet Volume 7.9; Monocytes # (A) 0.4 k/uL (0-1.0); Monocytes % (A) 7 %; Neutrophils # (A) 3.1 k/uL (1.3-7.7); Neutrophils % (A) 49 %; Platelet Count 217 k/uL (150-450); RBC 4.93 m/uL (3.80-5.40); RDW 12.4 % (11.5-15.5); WBC 6.4 k/uL (3.8-10.6)
[2023-06-07 16:25] LABS: ALT 25 U/L (4-34); AST 33 U/L (14-36); African American GFR (CKD) >90 (>60 ml/min/1.73 sqM); Albumin 4.3 g/dL (3.5-5.0); Alkaline Phosphatase 83 U/L (38-126); Amylase 60 U/L (30-110); Anion Gap 10 mmol/L; Blood Urea Nitrogen 15 mg/dL (7-17); Calcium 9.7 mg/dL (8.4-10.2); Carbon Dioxide 24 mmol/L (22-30); Chloride 108 mmol/L (98-107); Glucose 103 mg/dL (74-99); Lipase 95 U/L (23-300); Non-African American GFR(CKD) 87 (>60 ml/min/1.73 sqM); Potassium 3.6 mmol/L (3.5-5.1); Sodium 142 mmol/L (137-145); Total Bilirubin 0.7 mg/dL (0.2-1.3)
[2023-06-07 16:33] LABS: Appearance,Urine Cloudy (Clear); Bilirubin,Urine Negative (Negative); Blood,Urine Negative (Negative); Calcium Oxalate Crystals,Urine Many /hpf; Color,Urine Yellow; Glucose,Urine (UA) Negative (Negative); Ketones,Urine 3+ (Negative); Leukocyte Esterase,Urine Moderate (Negative); Mucus,Urine Many /hpf; Nitrite,Urine Negative (Negative); PH, Urine 5.5 (5.0-8.0); Protein,Urine Trace (Negative); RBC,Urine 2 /hpf (0-5); Specific Gravity,Urine 1.031 (1.001-1.035); Squamous Epithelial Cell,Urine 1 /hpf (0-4); Urobilinogen,Urine <2.0 mg/dL (<2.0); WBC,Urine 17 /hpf (0-5)
[2023-06-07 16:46] LABS: Partial Thromboplastin Time 22.8 sec (22.0-30.0)
[2023-06-07 17:15] LABS: INR 0.9 (<1.2); Prothrombin Time 10.4 sec (10.0-12.5)
--- NOTE | 2023-06-07 17:27 | CT ---
EXAMINATION TYPE: CT abdomen pelvis w con DATE OF EXAM: 06/07/2023 COMPARISON: 10/22/2018 HISTORY: left abd pain post colonoscopy (Wednesday) CT DLP: 1158.8 mGycm Automated exposure control for dose reduction was used. TECHNIQUE: Helical acquisition of images was performed from the lung bases through the pelvis. CONTRAST: Performed without Oral Contrast and with IV Contrast, patient injected with 100ml mL of Isovue 300. FINDINGS: The lung bases are clear. There is surgical absence of the gallbladder. There is no focal mass or organomegaly involving the liver, pancreas, spleen and adrenal glands. There are 2 small 2 -3 mm nonobstructing left renal calcifications. There is no hydronephrosis. There is no solid renal mass The caliber of the abdominal aorta is normal and no retroperitoneal adenopathy. The bowel loops are normal in caliber and there is no dilatation or obstruction. There is diverticulo sis of the sigmoid colon but no cyst CT evidence of diverticulitis. There is no free intraperitoneal air or fluid. No focal osseous lesions are seen. There are multiple surgical clips in the left internal inguinal region. There is a well circumscribed 3.3 cm mass in the left internal inguinal area and a 3.9 cm well circumscribed fluid-filled mass in the right internal inguinal region. These were present on the prior study dated 03/31/[address] able. These most likely represent simple bilateral ovarian cysts. IMPRESSION: 1. Surgical absent gallbladder. 2. 2 tiny nonobstructing left renal calcifications. 3. Bilateral pelvic well-circumscribed fluid-filled masses most likely representing ovarian cysts [facility] ch are stable dating back to 03/31/2023
[2023-06-07] MEDS: cefTRIAXone IN SWFI 1,000 MG/10 ML SYRINGE IVP STA (18:23)
[2023-06-07] MEDS: KETOROLAC 15 MG/ML 1 ML VIAL IVP STA (18:23)
[2023-06-07 18:36] VITALS: BP 103/72; PULSE 65; TEMP 97.9
== END 2023-06-07 18:39 | disposition home or self-care (01) ==
LOC: EC 14:23
DX: N13.2 Hydronephrosis with renal and ureteral calculous obstruction (principal); N83.202 Unspecified ovarian cyst, left side; N83.201 Unspecified ovarian cyst, right side; Z90.49 Acquired absence of other specified parts of digestive tract
CPT/HCPCS: 36415; 80053; 82150; 83605; 83690; 85025; 85610; 85730; 81001; 74177; 99284; 96374; 96375 ×3; 96361; J2270; J2405; J0696; J1885; Q9967

== ENCOUNTER → 2023-06-21 | Outpatient (CLI) | payer BC ==
--- NOTE | 2023-06-23 07:37 | MR ---
EXAMINATION TYPE: MR brain wo/w con DATE OF EXAM: 06/21/2023 7:32 AM CLINICAL INDICATION:Female, 57 years old with history of R42 dizziness and giddiness; [facility], COMPARISON: MRIs dating back to 2017. TECHNIQUE: Multi planar, multi sequence imaging was performed through the brain including: T1, T2, In version recovery, susceptibility weighted imaging and gradient echo imaging and Diffusion weighted im aging. The patient was then given intravenous contrast and multi planar, T1 fat-saturation images wer e obtained. IV Contrast: cc FINDINGS: Similar enhancing lesion within the superior medulla oblongata measuring 8 x 6 x 7 mm with postcontrast enhancement. The dating back to at least 2016. The mckenna-white junctions, ventricular system, basal cisterns appear unremarkable. Diffusion-weighted imaging shows no evidence of restricted diffusion to suggest acute/subacute infarct. Intracranial ar terial flow voids are maintained. Midline structures show no abnormality. Minimal scattered foci of h igh T2 signal intensity are seen within the periventricular white matter. The susceptibility weighted images do not reveal any evidence for micro-hemorrhage. The bone marrow signal is within normal limits. Paranasal sinuses and mastoid air cells: No significant paranasal sinus disease. Visualized orbits: Orbital contents are intact. IMPRESSION: 1. Similar enhancing lesion within the superior medulla oblongata measuring 8 x 6 x 7 mm with postcon trast enhancement. The dating back to at least 2016. No additional abnormal areas of postcontrast enh ancement. 2. Minimal scattered nonspecific white matter changes, likely related to small vessel ischemic diseas e.
--- NOTE | 2023-06-23 07:40 | MR ---
EXAMINATION TYPE: MR angio head wo con DATE OF EXAM: 06/21/2023 7:33 AM CLINICAL INDICATION:Female, 57 years old with history of R42 dizziness and giddiness; COMPARISON: Multiple MRIs dating back to 2017. Technical: 3-D [id number] Axial with MIP reconstruction created on a separate workstation.. IV Contrast: None cc Findings: Vertebral arteries: The vertebral arteries are patent. Vertebral arteries are: Slightly right dominant Basilar artery: The basilar artery is intact. The basilar artery bifurcation is normal. Internal Carotid arteries: The cervical, petrous, cavernous and supraclinoid segments are normal. MARY: Azygous anterior cerebral artery. Patent with no evidence of aneurysm. ACOM: Present without evidence of aneurysm. MCA: Patent with no evidence of aneurysm. SAMPLE TESTER: Patent with no evidence of aneurysm. PCOM: Hypoplastic bilaterally. IMPRESSION: No evidence of aneurysm or significant stenosis.
== END | disposition home or self-care (01) ==
LOC: RADMRIMAIN 06:19
PROVIDERS: ATTEND Psychiatry & Neurology Neurology
DX: G93.89 Other specified disorders of brain (principal); D49.6 Neoplasm of unspecified behavior of brain; G43.909 Migraine, unspecified, not intractable, without status migrainosus; R93.0 Abnormal findings on diagnostic imaging of skull and head, not elsewhere classified; R53.83 Other fatigue
CPT/HCPCS: 70544; 70553; A9585

== ENCOUNTER → 2023-08-30 | Outpatient (CLI) | payer BC ==
--- NOTE | 2023-08-30 19:16 | MM ---
Reason for Exam: Screening (asymptomatic). Last screening mammogram was performed 12 month(s) ago. Patient History: Menarche at age 12. First Full-Term at age 20. Hysterectomy at age 38. Postmenopausal. Hormonal Contraceptives for 6 months. 10/28/2017, Benign Core Biopsy on the right side. 10/07/2017, Benign Core Biopsy on the right side. 10/07/2017, High risk Core Biopsy on the right side. Risk Values: Phuong 5 year model risk: 1.5%. NCI Lifetime model risk: 9.3%. Prior Study Comparison: 06/18/2020 Bilateral Screening Mammogram, [facility]. 07/29/2021 Bilateral Screening Mammogram, [facility]. 08/28/2022 Bilateral MG 3D screening mammo w/cad, [facility]. Tissue Density: The breasts are heterogeneously dense, which may obscure small masses. Findings: Analyzed By CAD. Chronic bilateral nodularity. Microclip anterior right breast from prior biopsy. Grouped coarse calcifications posterior 12:00 left breast are unchanged. No significant change from prior exams. Overall Assessment: Benign, BI-RAD 2 Management: Screening Mammogram of both breasts in 1 year. . Patient should continue monthly self-breast exams. A clinical breast exam by your physician is recommended on an annual basis. This exam should not preclude additional follow-up of suspicious palpable abnormalities. Note on Phuong scores and lifetime risk: 1. A Phuong score greater than 3% is considered moderate risk. If this is the case, consider specialist referral to assess eligibility for a risk reducing agent. 2. If overall lifetime risk for the development of breast cancer is 20% or higher, the patient may qualify for future screening with alternating mammogram and breast MRI. Electronically signed and approved by: Victoriano Crowe M.D. Radiologist
== END | disposition home or self-care (01) ==
LOC: RADMAMWWP 08:08
PROVIDERS: ATTEND Family Medicine
DX: Z12.31 Encounter for screening mammogram for malignant neoplasm of breast (principal); Z78.0 Asymptomatic menopausal state
CPT/HCPCS: 77063; 77067

== ENCOUNTER → 2024-02-10 | Outpatient (CLI) | payer BC ==
--- NOTE | 2024-02-10 18:24 | MR ---
EXAMINATION TYPE: MR cspine/lspine wo con DATE OF EXAM: 02/10/2024 5:59 PM CLINICAL INDICATION: Female, 58 years old with history of M54.2 CERVICALGIA M47.812 SPONDYLOSIS W/O M YELOPAT; PHH, neck pain/stiffness that radiates into both shoulders down arms. low back pain that rad iates down both legs. COMPARISON: 02/05/2023 TECHNIQUE: Multi planar, multi sequence imaging was performed utilizing: T1-weighted, T2-weighted, a nd turbo inversion recovery imaging of the cervical and lumbar spine. MR contrast: IV Contrast: cc , None. FINDINGS: Similar brainstem lesion as seen on prior measuring similarly atr 9 x 7 mm. CERVICAL: Alignment: The cervical vertebral bodies have preserved heights. Alignment is within normal limits gi almaz patient positioning. Bones: Bone signal is within normal limits. No abnormal bone marrow edema on inversion recovery seque nces. Cord: The spinal cord is unremarkable with regards to their signal intensity and morphology. Discs: Multilevel disc desiccation is present. C2-C3: No significant disc pathology. The spinal canal is patent. No neural foraminal stenosis. C3-C4: No significant disc pathology. The spinal canal is patent. No neural foraminal stenosis. C4-C5: No significant disc pathology. The spinal canal is patent. No neural foraminal stenosis. C5-C6: A disc osteophyte complex is present which minimally narrows the ventral subarachnoid space. Bilateral facet and uncovertebral joint arthropathy are present with mild bilateral neural foraminal stenosis. C6-C7: A disc osteophyte complex is present with mild spinal canal stenosis. Bilateral facet and unc overtebral joint arthropathy are present with mild to moderate bilateral neural foraminal stenosis. C7-T1: No significant disc pathology. The spinal canal is patent. No neural foraminal stenosis. Other: None. LUMBAR: Alignment: The lumbar vertebral bodies have preserved heights and alignment. Cord: The conus medullaris and the distal spinal cord appear unremarkable with regards to their signa l intensity and morphology. Bones/Discs: Mild degeneration changes throughout the spine with osteophyte formation and facet joint arthropathy. Intervertebral disc signal is maintained. T12-L1: No evidence of significant spinal canal stenosis or neural foraminal stenosis. L1-L2: Disc bulge and facet joint arthropathy result in mild spinal canal and mild bilateral neural f oraminal stenosis. L2-L3: Disc bulge and facet joint arthropathy result in mild spinal canal and mild bilateral neural f oraminal stenosis. L3-L4: Disc bulge and facet joint arthropathy result in mild spinal canal and moderate to severe bila teral neural foraminal stenosis. L4-L5: Disc bulge and facet joint arthropathy result in mild spinal canal and moderate to severe bila teral neural foraminal stenosis. L5-S1: The disc is rounded posterior morphology without significant spinal canal stenosis. Facet smooth nt arthropathy with moderate to severe neural foraminal stenosis. No significant spinal canal or neural foraminal stenosis in the remainder of the visualized levels. Other findings: None. IMPRESSION: 1. No definitive evidence of disc herniation or significant spinal canal stenosis. 2. Similar Mild to moderate disc degeneration with associated osteoarthritic changes. Neural foramin al stenosis worse at L3-L4 for L4-L5 and L5-S1 bilaterally with moderate to severe stenosis. No evide nce for significant neural foraminal stenosis or spinal canal stenosis in the cervical spine. 3. Mild spinal canal stenosis C5-C6 is slightly improved from prior. 4. Similar size of mass in the medulla oblongata [facility], Workstation: [id number], 02/10/2024 6:22 PM
== END | disposition home or self-care (01) ==
LOC: RADMRIMAIN 17:01
PROVIDERS: ATTEND Psychiatry & Neurology Neurology
DX: M47.812 Spondylosis without myelopathy or radiculopathy, cervical region (principal); M47.816 Spondylosis without myelopathy or radiculopathy, lumbar region; M48.02 Spinal stenosis, cervical region; M48.061 Spinal stenosis, lumbar region without neurogenic claudication
CPT/HCPCS: 72141; 72148

== ENCOUNTER → 2024-06-20 | Outpatient (CLI) | payer BC ==
--- NOTE | 2024-06-20 08:50 | MR ---
INDICATION: Patient age:Female; 58 years old; Reason for study: D49.6 MANUEL BRAIN R42 DIZZY GIDDY G43.109 MIGRAINE; PHH. COMPARISON: MRI brain 06/21/2023, 05/18/2022, 05/21/2021, 06/10/2020, CT brain 12/09/2020, MRA head 06/21/2023 , 05/18/2022, 05/17/2021, 06/10/2020, MR C-spine/L spine 02/10/2024, 02/05/2023. TECHNIQUE: Multi planar, multi sequence imaging was performed through the brain. The patient was then given 9 cc of Gadobutrol intravenously and multi planar, T1 fat-saturation images were obtained. FINDINGS: Similar enhancing lesion within the superior medulla oblongata measuring 6 x 6 x 8 mm with peripheral curvilinear postcontrast enhancement. No new suspicious enhancing lesions. There is corresponding bl ooming artifact on susceptibility weighted imaging in this region consistent with hemosiderin deposit ion. The mckenna-white junctions, ventricular system, basal cisterns appear unremarkable. Diffusion-weighted imaging shows no evidence of restricted diffusion to suggest acute/subacute infarct. Intracranial ar terial flow voids are maintained. Midline structures show no abnormality. Minimal scattered foci of h igh T2/FLAIR signal intensity are seen within the periventricular and subcortical white matter. Large st is within the right frontal lobe subcortical white matter measuring up to 3 mm (series 602, image 37). The bone marrow signal is within normal limits. Paranasal sinuses and mastoid air cells: No significant paranasal sinus disease. Visualized orbits: Orbital contents are intact. IMPRESSION: 1. Stable 8 mm enhancing lesion within the superior medulla oblongata dating back to at least 2017. D emonstrate some hemosiderin deposition and is favored to represent a vascular malformation. No new tena spicious enhancing lesions. 2. Stable minimal scattered nonspecific white matter changes, likely related to small vessel ischemic disease. [facility], , 06/20/2024 8:48 AM
== END | disposition home or self-care (01) ==
LOC: RADMRIMAIN 08:05
PROVIDERS: ATTEND Psychiatry & Neurology Neurology
DX: D49.6 Neoplasm of unspecified behavior of brain (principal); R42 Dizziness and giddiness; G43.019 Migraine without aura, intractable, without status migrainosus; R41.3 Other amnesia; R90.82 White matter disease, unspecified
CPT/HCPCS: 70553; A9585

== ENCOUNTER → 2024-07-10 | Outpatient (CLI) | payer BC ==
--- NOTE | 2024-07-10 08:14 | MM ---
Reason for Exam: Clinical finding. Last screening mammogram was performed 10 month(s) ago. Indicated Problems: Lump or thickening of the left side (size 40) for 1 Week(s). Patient History: Menarche at age 12. First Full-Term at age 20. Hysterectomy at age 38. Postmenopausal. Hormonal Contraceptives for 6 months. 10/28/2017, Benign Core Biopsy on the right side. 10/07/2017, Benign Core Biopsy on the right side. 10/07/2017, High risk Core Biopsy on the right side. Risk Values: Phuong 5 year model risk: 1.5%. NCI Lifetime model risk: 9.3%. Prior Study Comparison: 07/29/2021 Bilateral Screening Mammogram, [facility]. 08/28/2022 Bilateral MG 3D screening mammo w/cad, [facility]. 08/30/2023 Bilateral MG 3D screening mammo w/cad, [facility]. Tissue Density: Left: The breasts are heterogeneously dense, which may obscure small masses. Findings: Analyzed By CAD. Benign-appearing calcifications. Stable appearing chronic nodularity within the left breast. Overall Assessment: Incomplete: need additional imaging evaluation, BI-RAD 0 Management: Diagnostic Breast Ultrasound of the left breast. . Results were given to the patient verbally at the time of exam. Patient should continue monthly self-breast exams. A clinical breast exam by your physician is recommended on an annual basis. This exam should not preclude additional follow-up of suspicious palpable abnormalities. Note on Phuong scores and lifetime risk: 1. A Phuong score greater than 3% is considered moderate risk. If this is the case, consider specialist referral to assess eligibility for a risk reducing agent. 2. If overall lifetime risk for the development of breast cancer is 20% or higher, the patient may qualify for future screening with alternating mammogram and breast MRI. [facility], , 07/10/2024 8:11 AM. Electronically signed and approved by: Angel Luis Ruiz M.D. Radiologis
--- NOTE | 2024-07-10 08:43 | USB ---
Reason for Exam: Clinical finding. Patient History: Menarche at age 12. First Full-Term at age 20. Hysterectomy at age 38. Postmenopausal. Hormonal Contraceptives for 6 months. 10/28/2017, Benign Core Biopsy on the right side. 10/07/2017, Benign Core Biopsy on the right side. 10/07/2017, High risk Core Biopsy on the right side. Risk Values: Phuong 5 year model risk: 1.5%. NCI Lifetime model risk: 9.3%. Technique: Method: Targeted. Prior Study Comparison: 07/29/2021 Bilateral Screening Mammogram, [facility]. 08/28/2022 Bilateral MG 3D screening mammo w/cad, [facility]. 08/30/2023 Bilateral MG 3D screening mammo w/cad, [facility]. Findings: The lower section of the breast of the left breast, the axilla of the left breast and the retroareolar of the left breast were scanned. A complete US of 6 to 7:00 position of the breast and retro-areolar, axilla region were reviewed. No solid or cystic masses are identified.. No solid or cystic mass is identified. Overall Assessment: Probably benign, BI-RAD 3 Management: Diagnostic Mammogram of the left breast. A clinical breast exam by your physician is recommended on an annual basis and results should be correlated with mammographic findings. This exam should not preclude additional follow-up of suspicious palpable abnormalities. Results were given to the patient verbally at the time of exam. [facility], , 07/10/2024 8:40 AM. Electronically signed and approved by: Angel Luis Ruiz M.D. Radiologis
== END | disposition home or self-care (01) ==
LOC: RADMAMWWP 07:46
PROVIDERS: ATTEND Family Medicine
DX: N64.4 Mastodynia (principal); N63.20 Unspecified lump in the left breast, unspecified quadrant; R92.332 Mammographic heterogeneous density, left breast; R92.1 Mammographic calcification found on diagnostic imaging of breast; Z78.0 Asymptomatic menopausal state; Z92.0 Personal history of contraception
CPT/HCPCS: 77061; 77065